=== PATIENT | female | born 1945 | race Caucasian/White ===

== ENCOUNTER 2018-10-28 14:49 | Outpatient (REF) | payer MEDICARE, MEDICAID, SELFPAY ==
[2018-10-28 19:21] LABS: Anion Gap 11.4 mmol/L (3-11); BUN 15 mg/dL (7-18); CO2 26.6 mmol/L (21.0-32.0); CREATININE 0.78 mg/dL (0.55-1.02); Calcium 9.4 mg/dL (8.5-10.1); Chloride 105 mmol/L (98-107); Cholesterol 266 mg/dL (50-200); Glucose 149 mg/dL (70-100); HDL Cholesterol 38 mg/dL (40-60); LDL CHOLESTEROL 146 mg/dL (<100); Potassium 4.3 mmol/L (3.5-5.1); Sodium 143 mmol/L (136-145); Triglyceride 377 mg/dL (30-150)
[2018-10-28 19:26] LABS: HCT 40.6 % (36.0-46.0); HGB 13.1 g/dL (12.0-15.5); Mean Corp. HGB Concentration 32.3 g/dL (32.0-36.0); Mean Corpuscular Hemoglobin 29.4 pg (27.0-33.0); Mean Corpuscular Volume 91.2 fL (80-95); Mean Platelet Volume 11.1 fL (8.0-11.0); Platelet Count 229 x1000/uL (130-400); RBC 4.45 m/cumm (4.00-5.20); RBC Distribution Width 14.8 % (11.7-14.6); White Blood Cell Count 7.59 k/cumm (4.4-10.8)
== END 2018-10-28 15:09 ==
LOC: LBN 14:49
PROVIDERS: PCP Internal Medicine; Visit Provider Internal Medicine
DX: D50.0 Iron deficiency anemia secondary to blood loss (chronic) (principal); I10 Essential (primary) hypertension; E11.9 Type 2 diabetes mellitus without complications; K92.2 Gastrointestinal hemorrhage, unspecified
CPT/HCPCS: 80048; 80061; 83721; 85027

== ENCOUNTER → 2022-09-04 01:03 | Outpatient (CLI) | payer MEDICARE, MEDICAID, SELFPAY ==
--- NOTE | 2022-09-04 07:45 | DI.MAMMO_ITS ---
Exam(s) US BREAST RT COMPLETE MAMMO DIAGNOSTIC BI EXAM: MAMMO DIAGNOSTIC BI and U/S breast RT complete CLINICAL HISTORY: NT lump right 9:00, N63.0. TECHNIQUE: Craniocaudal and mediolateral oblique Full Field Digital Mammography views with Computer Aided Diagnosis followed by Tomosynthesis and right breast ultrasound. COMPARISON: No priors for comparison. FINDINGS: Mammography/Tomosynthesis: Masses/Architectural Distortion: There are multiple well-circumscribed nodules in the right breast. This includes a nodule in the upper outer quadrant of the right breast which appears to correspond to the palpable concern. Microcalcifictions: No suspicious pleomorphic-type are seen. Numerous bilateral calcifications are se en in both breasts. Skin Thickening/Nipple Retraction: None. Complete right breast US: Echotexture: Normal appearance of the glandular tissue. Shadowing: No suspicious foci. Cyst: None. Solid lesions: Multiple well-circumscribed hypoechoic lesions are seen throughout the right breast. The largest is at the 9 o'clock position and measures 2.0 x 1 x 1.0 cm. This does contain a calcific ation internally. This appears to correspond to the nodule in the upper outer quadrant of the right breast. There is a nodule at the 11 o'clock position 2 cm from the nipple measuring 0.8 x 0.4 x 0.5 cm. The next largest nodule is seen at the 11 o'clock position 3 cm from the nipple and measures 0.7 x 0.3 x 0.6 cm. This contain calcifications. Ductal dilation: None. IMPRESSION: 1. No definite evidence for malignancy at this time. 2. A six-month follow-up right mammogram and ultrasound are requested for re-evaluation. 3. The findings were discussed with the patient on the date of the examination. BI-RADS Category 3 - 6 month - Probably Benign Finding: Recommend follow-up imaging in 6 months Breast Density - Category C - Heterogeneously dense Breast density Category C or D implies that the patient has dense breast tissue. Dense breast tissue can make it harder to find cancer on a mammogram. Dense breast tissue is also associated with an incr eased risk of breast cancer. This information about the result of the mammogram report was provided to the patient to raise their awareness. Use this report when you speak with the patient about their risks for breast cancer, which includes their family history. At that time, you may recommend additional screening tests (Ultrasoun d or MRI) as these tests may add significant information. A negative radiographic report should not delay biopsy if a dominant or clinically suspicious mass is present. Up to ten percent of cancers are not identified on mammography. A negative report may reinforce clinical impression. Adenosis and dense breasts may obscure an underlying neoplasm. False positive reports average 6 to 10%. Patient will receive a letter notifying them of these results.
== END ==
PROVIDERS: PCP Internal Medicine; Visit Provider Nurse Practitioner
DX: R92.8 Other abnormal and inconclusive findings on diagnostic imaging of breast
CPT/HCPCS: 76642; 77062; 77066; G0279

== ENCOUNTER 2023-06-05 18:51 | Emergency (ER) | payer MEDICARE, MEDICAID, SELFPAY ==
--- NOTE | 2023-06-05 19:00 | RT.EKG_ITS ---
APPROVED REPORT Exam: Resting ECG Reason for Exam: back pain/tachycardia Patient Location: E HR:97 bpm ECG Measurements Heart Rate 97 AXIS AR 198 P -3 QRSd 97 QRS 39 QT 346 T 3 QTc 439 Conclusion Sinus rhythm...normal P axis, V-rate 60- 99 sinus rhtyhm, normal axs, normal intervals, non ischemic
[2023-06-05 19:04] VITALS: BP 126/56; PULSE 102; RESP 18; TEMP 37.3; O2SAT 99
[2023-06-05] MEDS: Cyclobenzaprine 10 MG TAB PO (19:50)
[2023-06-05] MEDS: Ketorolac 10 MG TAB PO (19:50)
[2023-06-05] MEDS: Lidocaine 5% Patch 1 PATCH TP (19:51)
--- NOTE | 2023-06-05 19:53 | ED.GENADUL_ITS ---
Discharge Plan Disposition Patient Disposition: Home Condition: Improving Discharge Details Clinical Impression: Back pain Primary Care Provider: Leonila Rich ED Provider: John Paulino Home Meds and New Rx's Prescriptions: New cyclobenzaprine 5 mg tablet 5 mg PO QHS PRN (Reason: muscle spasm) Qty: 10 0RF lidocaine [Lidoderm] 5 % adhesive patch,medicated 1 patch topical DAILY PRNQty: 15 0RF Rx Instructions: leave on most painful area for up to 12 hrs No Action ibuprofen 200 mg tablet 400 mg PO BID PRN Discharge Instructions Instructions: Back Pain (ED) Additional Instructions: Please follow with your primary care physician. Please return to the emergency department for any worsening symptoms Medical Decision Making 77-year-old female history of spinal stenosis presents with acute on chronic atraumatic back pain. Afebrile nontoxic neurologically intact. No bowel or bladder symptoms. No midline spinal tenderness. Patient is largely sedentary does have evidence of early pressure sores on back. Feeling better after Lidoderm cyclobenzaprine and Toradol. Patient like to go home. Home care instructions return precautions given. HPI General Date/Time Provider Initiated Documentation: 06/05/23 19:34 . HPI Narrative: 77-year-old female history of spinal stenosis presents with acute on chronic lower back pain over the past couple of days, no acute injuries. No fevers no chills no systemic signs of illness. Ambulatory without assistance. No bowel or bladder issues. Related Data Home Medications Medication Instructions Recorded Confirmed ibuprofen 200 mg tablet 400 mg PO BID PRN 07/19/21 06/05/23 cyclobenzaprine 5 mg tablet 5 mg PO QHS PRN muscle spasm #10 06/05/23 tabs lidocaine 5 % topical patch 1 patch topical DAILY PRN #15 ea 06/05/23 (Lidoderm) Previous Rx's Medication Instructions Recorded cyclobenzaprine 5 mg tablet 5 mg PO QHS PRN muscle spasm #10 06/05/23 tabs lidocaine 5 % topical patch 1 patch topical DAILY PRN #15 ea 06/05/23 (Lidoderm) Allergies Allergy/AdvReac Type Severity Reaction Status Date / Time No Known Allergies Allergy Verified 08/27/22 12:53 General Stated Complaint: Nk/Back Pain GARY: 3 Review of Systems Narrative: Review of Systems Constitutional: negative Eyes: negative ENT: negative Cardiovascular: negative Respiratory: negative Gastrointestinal: negative : negative Musculoskeletal: Back pain Skin: negative Neurologic: negative Psych: negative PFSH All Active Problems (Updated 06/05/23 @ 21:17 by John Paulino MD) Back pain (Acute) Depression (Acute 05/31/15) Spinal stenosis, unspecified region other than cervical (Acute 10/26/11) Smoker unmotivated to quit (Acute 05/31/15) Pure hypercholesterolemia (Acute 02/27/17) Iron deficiency anemia due to chronic blood loss (Acute 03/16/14) due to NSAID, ASA, ? lesion Insomnia (Acute 02/27/17) Essential hypertension (Acute 01/26/13) Diabetes mellitus (Acute 01/26/13) Radicular pain of right lower extremity (Acute) Chronic low back pain with right-sided sciatica (Acute) Medical History (Updated 06/05/23 @ 21:17 by John Paulino MD) Chronic GI bleeding (07/18/15) Continuous opioid dependence (10/21/13) Surgical History (Updated 07/30/18 @ 14:36 by Plink CA) Abdominal hysterectomy Cholecystectomy Family History Father Myocardial infarction Grandfather Essential hypertension Social History (Updated 07/19/21 @ 13:39 by Eufemia Reeves LPN) Smoking/Tobacco Use Status: Current every day Tobacco Type: cigarettes Quit status: not considering quitting Smoking risk assessment performed?: Yes Alcohol Intake: former Details: alcholic quit 1977 Drug use: Never Substance use type: does not use Adopted: No Caregiver/Support person: Yes Foster care: No Household members: other Details: self and son Housing: apartment Number of Children: 1 number of grandchildren: 0 Communication Needs: None 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, 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, 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 Pets and animals: Yes Pets and animals: cat(s) What is your relationship status?: How often do you talk on the phone with friends or family?: three or more times per week Panel score (0-1 are the most socially isolated patients): 1 What type of physical activity do you participate in: none Drive intox or ride w/intox 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 Water heater temp set <120 deg: Yes Working smoke detector in home: Yes Fire extinguisher in home: Yes Carbon monox detector in home: Yes Do you feel safe at home: Yes Do you feel safe in your relationship?: Yes Exam Narrative Exam Narrative: Physical Examination General: alert, awake, cooperative, resting comfortably, no acute distress HEENT: normocephalic, atraumatic; PERRL, EOM intact, conjunctiva normal; no nasal discharge; moist mucous membranes, oral and pharyngeal mucosa normal, tolerating secretions Neck: supple, trachea midline; full ROM Chest: normal to inspection Respiratory: normal respiratory effort, speaking in full sentences, clear to auscultation, no wheezing, rales or rhonchi Cardiac: regular rate, regular rhythm, S1S2 intact, no murmurs rubs or gallops GI: abdomen soft, non-tender, non-distended; no palpable mass or hepatosplenomegaly : Back: No midline spinal tenderness, patient does have paraspinal lumbar discomfort no evidence of early pressure sores Skin: no lesions, rashes or trauma appreciated Neuro: AAOx3, normal speech, moving all extremities Extremities: Psych: Appropriate mood and affect Course Vital Signs Vital signs: Vital Signs Temperature 37.3 C 06/05/23 19:04 Pulse 102 H 06/05/23 19:04 Respiratory Rate 18 06/05/23 19:04 Blood Pressure 126/56 L 06/05/23 19:04 Pulse Oximetry 99 06/05/23 19:04 Temperature 37.3 C 06/05/23 19:04 Temperature Source Temporal Artery Scan 06/05/23 19:04 Pulse 102 H 06/05/23 19:04 Respiratory Rate 18 06/05/23 19:04 Respiratory Effort Normal 06/05/23 19:27 Blood Pressure 126/56 L 06/05/23 19:04 Blood Pressure Position Sitting 06/05/23 19:04 Pulse Oximetry 99 06/05/23 19:04 Oxygen Delivery Method Room Air 06/05/23 19:04 Oxygen Flow Rate 0 06/05/23 19:04 Pain Level 10 06/05/23 19:04
[2023-06-05 21:31] VITALS: BP 135/68; PULSE 92; RESP 20; O2SAT 96
== END 2023-06-05 21:28 | disposition home or self-care (01) ==
PROVIDERS: Emergency Provider Emergency Medicine; PCP Nurse Practitioner
DX: M54.50 Low back pain, unspecified (principal); E78.00 Pure hypercholesterolemia, unspecified; M48.02 Spinal stenosis, cervical region; I10 Essential (primary) hypertension; E11.9 Type 2 diabetes mellitus without complications; F17.210 Nicotine dependence, cigarettes, uncomplicated
CPT/HCPCS: 93005; 99283; 93010

== ENCOUNTER 2023-07-13 19:38 | Emergency (ER) | payer MEDICARE, MEDICAID, SELFPAY ==
[2023-07-13 20:00] VITALS: BP 118/43; PULSE 80; RESP 16; TEMP 36.7; O2SAT 99
--- NOTE | 2023-07-13 20:58 | ED.GENADUL_ITS ---
Discharge Plan Disposition Patient Disposition: Home Discharge Details Clinical Impression: Ankle fracture, right Primary Care Provider: Leonila Rich ED Provider: Ashley Molina Home Meds and New Rx's Prescriptions: New oxycodone 5 mg tablet 5 mg PO Q4H PRN (Reason: pain) Qty: 20 0RF Continued celecoxib [Celebrex] 200 mg capsule 200 mg PO DAILY Qty: 90 1RF (DME) manual wheelchair See Rx Instructions .Route .MEDSUPPLY Qty: 1 0RF Rx Instructions: As directed Discharge Instructions Instructions: Ankle Fracture (ED) Additional Instructions: Ice 20 minutes on and 20 minutes off for the next 24 to 48 hours. Elevate your ankle above the level of your heart as discussed. You may take your Celebrex as prescribed. You may also take your [id number] pain medicine. Oxycodone 1 tablet every 4-6 hours as needed for pain. Wear the ortho boot until seen by ortho. Orthopedics should call you Saturday for follow-up appointment for next week. Medical Decision Making Patient and her family were updated on her x-ray results. She has a distal fibula fracture and will see orthopedics in follow-up. We will give her a small amount of oxycodone to take with her Celebrex and [id number] pain medicine. We will be putting her in an orthopedic shoe. She does get around in her wheelchair. Medical Records Medical records reviewed: Yes I reviewed the patient's medical records. Imaging Data Radiologic Study: Imaging: X-Ray (Distal fibula fracture, minimally displaced, evident. There may be loss of the mortise between her distal fibula and talus. Foot and tib-fib are negative for anything else.) HPI General Date/Time Provider Initiated Documentation: 07/13/23 20:44 . HPI Narrative: This 78-year-old female patient presents with a chief complaint of right lower extremity pain after falling twice this week. The patient does not walk and has been wheelchair-bound for about 10 years. She does transfer. She was try to transfer on Saturday and slipped and fell between the toilet and wall. She twisted her foot and thought she heard a snap. She has diffuse ecchymosis, swelling, and tenderness to palpation in her right foot and ankle. The patient states that she also hit her head at that time. There was no LOC and she is on no blood thinning medicines. She has no neck pain. There is no headache, dizziness, or lightheadedness. She has no nausea or vomiting. She states she fell again on and hurt her hip, right foot, ankle, and lower leg at the same time. Has been taking [id number] pain medicine but has not been icing this at all. She denies any other injury. Her foot and ankle are throbbing. There is no numbness. Related Data Home Medications Medication Instructions Recorded Confirmed celecoxib 200 mg capsule (Celebrex) 200 mg PO DAILY #90 caps 06/18/23 07/13/23 manual wheelchair #1 ea 07/09/23 07/09/23 oxycodone 5 mg tablet 5 mg PO Q4H PRN pain #20 tabs 07/13/23 Previous Rx's Medication Instructions Recorded celecoxib 200 mg capsule (Celebrex) 200 mg PO DAILY #90 caps 06/18/23 manual wheelchair #1 ea 07/09/23 oxycodone 5 mg tablet 5 mg PO Q4H PRN pain #20 tabs 07/13/23 Allergies Allergy/AdvReac Type Severity Reaction Status Date / Time No Known Allergies Allergy Verified 07/13/23 20:05 General Stated Complaint: Trauma GARY: 3 Review of Systems Constitutional Constitutional: Denies chills, Denies fever(s), Denies headache(s) and Denies weakness Eyes Eyes: Denies diplopia and Reports other (no redness) ENT Ears, Nose, Mouth, and Throat: Denies otalgia, Denies headache(s), Denies nasal congestion, Denies nasal discharge, Denies neck pain and Denies sore throat Cardiovascular Cardiovascular: Denies chest pain, Denies palpitations and Denies dyspnea Respiratory Respiratory: Denies cough and Denies dyspnea Gastrointestinal Gastrointestinal: Denies abdominal pain, Denies diarrhea, Denies nausea and Denies vomiting Genitourinary Genitourinary: Denies dysuria Musculoskeletal Musculoskeletal: Denies myalgias, Denies muscle weakness, Denies neck pain, Denies numbness and Reports other (Has right foot and ankle pain, edema, ecchymosis) Integumentary/Breasts Skin/Breast: Denies change in pigmentation, Denies rash and Reports other (Bruising and swelling as noted under musculoskeletal ROS) Neurologic Neurologic: Denies headache(s), Denies numbness and Denies weakness Endocrine Endocrine: Denies palpitations PFSH All Active Problems (Updated 07/13/23 @ 22:58 by Ashley Molina MD) Ankle fracture, right (Acute) Depression (Acute 05/31/15) Spinal stenosis, unspecified region other than cervical (Acute 10/26/11) Smoker unmotivated to quit (Acute 05/31/15) Pure hypercholesterolemia (Acute 02/27/17) Iron deficiency anemia due to chronic blood loss (Acute 03/16/14) due to NSAID, ASA, ? lesion Insomnia (Acute 02/27/17) Essential hypertension (Acute 01/26/13) Diabetes mellitus (Acute 01/26/13) Radicular pain of right lower extremity (Acute) Chronic low back pain with right-sided sciatica (Acute) Medical History Chronic GI bleeding (07/18/15) Continuous opioid dependence (10/21/13) Surgical History Abdominal hysterectomy Cholecystectomy Family History Father Myocardial infarction Grandfather Essential hypertension Social History Smoking/Tobacco Use Status: Current every day Tobacco Type: cigarettes Quit status: not considering quitting Smoking risk assessment performed?: Yes Alcohol Intake: former Details: alcholic quit 1977 Drug use: Never Substance use type: does not use Adopted: No Caregiver/Support person: Yes Foster care: No Household members: other Details: self and son Housing: apartment Number of Children: 1 number of grandchildren: 0 Communication Needs: None 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, 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, 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 Pets and animals: Yes Pets and animals: cat(s) What is your relationship status?: How often do you talk on the phone with friends or family?: three or more times per week Panel score (0-1 are the most socially isolated patients): 1 What type of physical activity do you participate in: none Drive intox or ride w/intox 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: No Water heater temp set <120 deg: Yes Working smoke detector in home: Yes Fire extinguisher in home: Yes Carbon monox detector in home: Yes Do you feel safe at home: Yes Do you feel safe in your relationship?: Yes Exam Const General: no acute distress, well developed, well groomed and not in acute distress Nutritional Appearance: well nourished Orientation: alert and oriented x3 HENMT Head: normocephalic and signs of trauma (Minor bruise right zoroastrian, no step-offs or crepitus) Ears: external ears normal General nose exam: external nose normal Face and sinus: normal facial exam Mouth: oropharynx normal and moist mucous membranes Throat: posterior oropharynx normal Eyes Conjunctivae: conjunctivae normal Neck Neck: full ROM, supple and other (No cervical spine tenderness to palpation) Chest Chest: normal inspection of the chest and normal palpation of entire chest wall Resp Effort & Inspection: normal respiratory effort Auscultation: clear to auscultation bilaterally Cardio Rate: regular rate Rhythm: regular rhythm Heart Sounds: no murmurs and no rubs GI Inspection: normal to inspection Palpation: soft, nontender and other (non distended) Auscultation: normal bowel sounds Back/Spine/Pelvis Back: no CVA tenderness Cervical Spine: No cervical spinal tenderness Thoracic/Lumbar Spine: No thoracic spinal tenderness and No lumbar spinal tenderness Pelvis: no pain with anterior-posterior compression and no pain with lateral compression Skin General skin exam: no rashes or lesions noted and other (pink, warm, dry) Neuro General: patient alert, patient awake and patient oriented x3 Cranial Nerves: CN's II-XI intact bilaterally Cognition: normal cognition Speech: speech normal Gait: other (Wheelchair-bound, gait not assessed) Motor: muscle tone normal throughout, strength 5/5 throughout and other (W[place]ON) Sensory Exam: no sensory deficits noted Extrem General: normal to inspection, full ROM and pedal edema present Right upper extremity: normal to inspection and full ROM Left upper extremity: normal to inspection and full ROM Right lower extremity: knee (Has lateral proximal fibular tenderness to palpation, no deformity) and ankle (TTP over B malleoli, also entire foot; decent swelling and ecchymosis) Details: edema, ecchymosis and other (Sensation intact distally) Left lower extremity: normal to inspection and full ROM Psych Mental Status: mental status grossly normal Speech and Movement: speech and movement normal Affect: normal affect Course Vital Signs Vital signs: Vital Signs Temperature 36.7 C 07/13/23 20:00 Pulse 80 07/13/23 20:00 Respiratory Rate 16 07/13/23 20:00 Blood Pressure 118/43 L 07/13/23 20:00 Pulse Oximetry 99 07/13/23 20:00 Temperature 36.7 C 07/13/23 20:00 Temperature Source Temporal Artery Scan 07/13/23 20:00 Pulse 80 07/13/23 20:00 Respiratory Rate 16 07/13/23 20:00 Respiratory Effort Normal 07/13/23 20:00 Blood Pressure 118/43 L 07/13/23 20:00 Blood Pressure Position Sitting 07/13/23 20:00 Pulse Oximetry 99 07/13/23 20:00 Oxygen Delivery Method Room Air 07/13/23 20:00 Oxygen Flow Rate 0 07/13/23 20:00 Pain Level 10 07/13/23 20:00
[2023-07-13] MEDS: Acetaminophen 325 MG TAB 650 MG PO (21:19)
--- NOTE | 2023-07-13 22:34 | DI.RAD_ITS ---
Exam(s) XR ANKLE RT COMPLETE EXAM: XR ANKLE RT COMPLETE CLINICAL HISTORY: pain, malleoli pain, post fall. TECHNIQUE: 2D digital imaging was performed. COMPARISON: No exams were available for comparison FINDINGS: 3 views There is a minimally displaced transverse fracture of the lateral malleolus. There is overlying soft tissue swelling. Talar dome unremarkable. No other fractures. No widening of the ankle mortise. Age-related osteopenia evident. IMPRESSION: Minimally displaced transverse fracture of the lateral malleolus DATA REPOSITORY: RADIATION DOSE DELIVERED:
--- NOTE | 2023-07-13 22:34 | DI.RAD_ITS ---
Exam(s) XR TIB/FIB RT EXAM: XR TIB/FIB RT CLINICAL HISTORY: prox fib pain post fall. TECHNIQUE: 2D digital imaging was performed. COMPARISON: No exams were available for comparison FINDINGS: Two views. Transverse fracture of the lateral malleolus noted at the ankle level. No other fractures in the tib ia and fibula. Bone density is age-appropriate. No osseous lesions. No radiopaque foreign body IMPRESSION: Transverse fracture of the lateral malleolus with minimal displacement DATA REPOSITORY: RADIATION DOSE DELIVERED:
--- NOTE | 2023-07-13 22:34 | DI.RAD_ITS ---
Exam(s) XR FOOT RT COMPLETE EXAM: XR FOOT RT COMPLETE CLINICAL HISTORY: fall, diffuse pain, edema, ecchymosis. TECHNIQUE: 2D digital imaging was performed. COMPARISON: No exams were available for comparison FINDINGS: 3 views There is a healed midshaft fracture of the 2nd metatarsal. No acute fractures in the foot nor diastasis of the Lisfranc joint. Mild degenerative changes. Soft tissue swelling noted over the dorsal aspect of the foot. Small inferior calcaneal spur noted IMPRESSION: No acute fractures in the foot. Healed fracture site in the midshaft level of the 2nd metatarsal. DATA REPOSITORY: RADIATION DOSE DELIVERED:
--- NOTE | 2023-07-13 22:47 | DI.VRAD_ITS ---
PROCEDURE INFORMATION: Exam: XR Right Ankle Exam date and time: 07/13/2023 10:17 PM Age: 78 years old Clinical indication: Injury or trauma; Blunt trauma; Ankle; Right; Patient HX: Pain, malleoli pain, post fall TECHNIQUE: Imaging protocol: Radiologic exam of the right ankle. Views: 3 or more views. COMPARISON: No relevant prior studies available. FINDINGS: Bones/joints: There is a minimally displaced transverse fracture of the lateral malleolus. No other findings of acute fracture. Ankle mortise is intact. No arthritic change. Bones are diffusely osteopenic. Soft tissues: Moderate soft tissue swelling of the ankle. IMPRESSION: Minimally displaced lateral malleolus fracture Dictated and Authenticated by: Patrick Fraser MD. Ordering:JENNIFER Ramirez MD
--- NOTE | 2023-07-13 22:47 | DI.VRAD_ITS ---
PROCEDURE INFORMATION: Exam: XR Right Foot Exam date and time: 07/13/2023 10:19 PM Age: 78 years old Clinical indication: Injury or trauma; Other: Fall, diffuse pain, edema, ecchmosis TECHNIQUE: Imaging protocol: Radiologic exam of the right foot. Views: 3 or more views. COMPARISON: CR XR ANKLE RT COMPLETE 07/13/2023 10:17 PM FINDINGS: Bones/joints: Bones are diffusely osteopenic. No acute fracture evident in the foot. Mild plantar calcaneal spurring. Soft tissues: Moderate soft tissue swelling of the foot. IMPRESSION: No acute fracture in the foot Dictated and Authenticated by: Patrick Fraser MD. Ordering:JENNIFER Ramirez MD
--- NOTE | 2023-07-13 22:48 | DI.VRAD_ITS ---
PROCEDURE INFORMATION: Exam: XR Right Tibia and Fibula Exam date and time: 07/13/2023 10:22 PM Age: 78 years old Clinical indication: Injury or trauma; Blunt trauma; Lower leg; Right; Injury details: Prox fib pain post fall TECHNIQUE: Imaging protocol: Radiologic exam of the right tibia and fibula. Views: 2 views. COMPARISON: CR XR FOOT RT COMPLETE 07/13/2023 10:19 PM FINDINGS: Bones/joints: Bones are diffusely osteopenic. Slight cortical irregularity of the lateral malleolus of the fibula concerning for acute fracture. No other findings suspicious for fracture. Mild degenerative changes of the knee noted Soft tissues: Normal. IMPRESSION: Suggestion of minimally displaced lateral malleolus fracture Dictated and Authenticated by: Patrick Fraser MD. Ordering:JENNIFER Ramirez MD
[2023-07-13] MEDS: oxyCODONE 5 MG TAB PO (23:00)
[2023-07-13 23:35] VITALS: BP 122/67; PULSE 75; RESP 16; TEMP 36.7; O2SAT 99
--- NOTE | 2023-07-18 12:23 | NUR.NOTE ---
Accessed pt chart to print the provider note to fax to [facility] for billing purposes.Nursing Note:
== END 2023-07-13 23:35 | disposition home or self-care (01) ==
PROVIDERS: Emergency Provider Emergency Medicine; PCP Nurse Practitioner
DX: S82.891A Other fracture of right lower leg, initial encounter for closed fracture (principal); W05.0XXA Fall from non-moving wheelchair, initial encounter
CPT/HCPCS: 99283; 73590; 73610; 73630; 99284

== ENCOUNTER → 2023-07-29 14:49 | Outpatient (BNVA) | payer MEDICARE, MEDICAID, SELFPAY | PROVIDERS: PCP Nurse Practitioner; Referring Provider Nurse Practitioner | DX: S82.831D Other fracture of upper and lower end of right fibula, subsequent encounter for closed fracture with routine healing (principal); X58.XXXD Exposure to other specified factors, subsequent encounter | CPT/HCPCS: 99213 ==

== ENCOUNTER 2023-09-03 15:07 | Emergency (ER) | payer MEDICARE, MEDICAID, SELFPAY ==
[2023-09-03 15:15] VITALS: BP 139/60; PULSE 110; RESP 18; TEMP 36; O2SAT 100
--- NOTE | 2023-09-03 15:45 | ED.GENADUL_ITS ---
Discharge Plan Disposition Patient Disposition: Home Condition: Stable Discharge Details Clinical Impression: Cat bite of right hand with infection Primary Care Provider: Leonila Rich ED Provider: Miko Soto Home Meds and New Rx's Prescriptions: New amoxicillin-pot clavulanate 875-125 mg tablet 1 tab PO BID Qty: 19 0RF Continued celecoxib [Celebrex] 200 mg capsule 200 mg PO DAILY Qty: 90 1RF (DME) manual wheelchair See Rx Instructions .Route .MEDSUPPLY Qty: 1 0RF Rx Instructions: As directed Discharge Instructions Instructions: Animal Bite (ED), Cellulitis (ED) Additional Instructions: Please take full course of antibiotic as prescribed. Please drink plenty of fluids to stay hydrated. Please contact your primary care physician to arrange follow-up. Return to the ER immediately for any worsening or new concerning symptoms. Referrals: Leonila Rich, ARCHITECTURAL REPRESENTATIVE [Primary Care Provider] - Medical Decision Making 78-year-old female presents 2 days after cat bite versus scratch to her right dorsal hand with swelling, pain and erythema. No concern for tendon involvement. Patient mildly tachycardic on arrival. She is afebrile. Family note patient often has elevated heart rate related chronic pain. Plan for treatment of cellulitis with Augmentin. I will update tetanus immunization. Additional antibiotic dose provided here in the emergency department. Usual customary discharge instructions were reviewed with the patient and her family. They understand the importance of follow-up and need to return for any worsening or new concerning symptoms. HPI General Mode of arrival: ambulatory . Date/Time Provider Initiated Documentation: 09/03/23 15:23 . Limitations to Documentation: no limitations . Information obtained by: patient and family . HPI Narrative: 78-year-old female presents with chief complaint of cat bite. Patient apparently was bit or scratched by a cat 2 days ago on her right hand. She has had progressive worsening of swelling of the hand as well as associated redness and pain. No associated fever. Related Data Home Medications Medication Instructions Recorded Confirmed celecoxib 200 mg capsule (Celebrex) 200 mg PO DAILY #90 caps 06/18/23 09/03/23 manual wheelchair #1 ea 07/09/23 09/03/23 amoxicillin 875 mg-potassium 1 tab PO BID #19 tabs 09/03/23 clavulanate 125 mg tablet Previous Rx's Medication Instructions Recorded celecoxib 200 mg capsule (Celebrex) 200 mg PO DAILY #90 caps 06/18/23 manual wheelchair #1 ea 07/09/23 amoxicillin 875 mg-potassium 1 tab PO BID #19 tabs 09/03/23 clavulanate 125 mg tablet Allergies Allergy/AdvReac Type Severity Reaction Status Date / Time No Known Allergies Allergy Verified 09/03/23 15:32 General Stated Complaint: AnimalBite GARY: 3 Review of Systems Constitutional Constitutional: Denies fever(s) Integumentary/Breasts Skin/Breast: Reports as per HPI PFSH All Active Problems Cat bite of right hand with infection (Acute) Fracture of fibula, distal, right, closed (Acute ~07/09/23) Depression (Acute 05/31/15) Spinal stenosis, unspecified region other than cervical (Acute 10/26/11) Smoker unmotivated to quit (Acute 05/31/15) Pure hypercholesterolemia (Acute 02/27/17) Iron deficiency anemia due to chronic blood loss (Acute 03/16/14) due to NSAID, ASA, ? lesion Insomnia (Acute 02/27/17) Essential hypertension (Acute 01/26/13) Diabetes mellitus (Acute 01/26/13) Radicular pain of right lower extremity (Acute) Chronic low back pain with right-sided sciatica (Acute) Medical History Continuous opioid dependence (10/21/13) Chronic GI bleeding (07/18/15) Surgical History Abdominal hysterectomy Cholecystectomy Family History Father Myocardial infarction Grandfather Essential hypertension Social History Smoking/Tobacco Use Status: Current every day Tobacco Type: cigarettes Quit status: not considering quitting Smoking risk assessment performed?: Yes Alcohol Intake: former Details: alcholic quit 1977 Drug use: Never Substance use type: does not use Adopted: No Caregiver/Support person: Yes Foster care: No Household members: other Details: self and son Housing: apartment Number of Children: 1 number of grandchildren: 0 Communication Needs: None 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, 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, 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 Pets and animals: Yes Pets and animals: cat(s) What is your relationship status?: How often do you talk on the phone with friends or family?: three or more times per week Panel score (0-1 are the most socially isolated patients): 1 What type of physical activity do you participate in: none Drive intox or ride w/intox over the road driver: No Water heater temp set <120 deg: Yes Working smoke detector in home: Yes Fire extinguisher in home: Yes Carbon monox detector in home: Yes Do you feel safe at home: Yes Do you feel safe in your relationship?: Yes Exam Skin Rashes: rashes noted (dorsal right hand/wrist) Extrem Right upper extremity: wrist Details: normal ROM and hand (right hand swollen and tender with erythema dorsally) Details: tendon exam normal and normal ROM of fingers Course Vital Signs Vital signs: Vital Signs Temperature 36 C L 09/03/23 15:15 Pulse 110 H 09/03/23 15:15 Respiratory Rate 18 09/03/23 15:15 Blood Pressure 139/60 09/03/23 15:15 Pulse Oximetry 100 09/03/23 15:15 Temperature 36 C L 09/03/23 15:15 Temperature Source Temporal Artery Scan 09/03/23 15:15 Pulse 110 H 09/03/23 15:15 Respiratory Rate 18 09/03/23 15:15 Respiratory Effort Normal, Non-Labored 09/03/23 15:19 Blood Pressure 139/60 09/03/23 15:15 Blood Pressure Position Sitting 09/03/23 15:15 Pulse Oximetry 100 09/03/23 15:15 Oxygen Delivery Method Room Air 09/03/23 15:15 Oxygen Flow Rate 0 09/03/23 15:15 Pain Level 10 09/03/23 15:27
[2023-09-03] MEDS: Amoxicillin 875/Clav. 125 TAB PO (15:50)
[2023-09-03 16:01] VITALS: PULSE 107; O2SAT 99
== END 2023-09-03 16:33 | disposition home or self-care (01) ==
PROVIDERS: Emergency Provider Student in an Organized Health Care Education/Training Program; PCP Nurse Practitioner
DX: M79.89 Other specified soft tissue disorders (principal); S61.451A Open bite of right hand, initial encounter; W55.01XA Bitten by cat, initial encounter; I10 Essential (primary) hypertension; E11.9 Type 2 diabetes mellitus without complications; Z79.899 Other long term (current) drug therapy
CPT/HCPCS: 82962; 90471; 99284; 99283

== ENCOUNTER 2023-11-02 19:07 | Inpatient (IN) | payer MEDICARE, MEDICAID, SELFPAY ==
[2023-11-02] VITALS (108 sets, daily range): BP systolic 96–219; BP diastolic 30–185; PULSE 91–147; RESP 5–24; TEMP 36.6–36.7; O2SAT 94–100
--- NOTE | 2023-11-02 19:00 | RT.EKG_ITS ---
APPROVED REPORT Exam: Resting ECG Reason for Exam: sob Patient Location: E HR:98 bpm ECG Measurements Heart Rate 98 AXIS MS 212 P 77 QRSd 89 QRS 57 QT 348 T 63 QTc 445 Conclusion Sinus rhythm...normal P axis, V-rate 60- 99 Borderline prolonged MS interval...MS >207, V-rate 91-120 Low voltage, extremity leads...all extremity leads <0.5mV Borderline ST depression, anterolateral leads...ST <-0.07mV, I aVL V2-V6 1st degree AVB, Normal axis Previous ST elevation in III has improved from previous. NO STEMI
[2023-11-02] MEDS: Albuterol/Ipratropium 3 ML UPD VIAL UPD (19:14)
--- NOTE | 2023-11-02 19:15 | DI.RAD_ITS ---
Exam(s) XR PORTABLE CHEST AP EXAM: XR PORTABLE CHEST AP CLINICAL HISTORY: short of breath TECHNIQUE: 2D digital imaging was performed. COMPARISON: CR CHEST 2 VIEWS PA,LAT from 06/24/[address] THORAX ABD/PEL CTA from 11/02/2023 FINDINGS: LUNGS: Increased interstitial markings and prominent pulmonary vasculature compared to prior exam con sistent with CHF. No focal infiltrate visible. No pleural abnormality seen. HEART: Mildly enlarged. AORTA: Normal diameter. BONES: Unremarkable for age. Soft tissues: Unremarkable. IMPRESSION: Findings consistent with moderate CHF. DATA REPOSITORY: RADIATION DOSE DELIVERED:
[2023-11-02 19:39] LABS: BE (Venous) -7 mmol/L (-2-3); HCO3 (Venous) 20 mmol/L (23-28); O2 Sat (Venous) 68 %; TCO2 (Venous) 19 mmol/L (24-29); pCO2 (Venous) 37 mmHg (41-51); pH (Venous) 7.33 (7.31-7.41); pO2 (Venous) 42 mmHg
[2023-11-02 19:41] LABS: Lactate 1.5 mmol/L (0.6-1.4)
[2023-11-02 19:42] LABS: Abs Immature Grans 0.03 10^3/uL (0.0-0.06); Absolute Basophil Count 0.05 10^3/uL (0.0-0.2); Absolute Eosinophil Count 0.02 10^3/uL (0.0-0.7); Absolute Lymphocyte Count 0.46 10^3/uL (1.2-3.4); Absolute Monocyte Count 0.27 10^3/uL (0.1-0.8); Absolute Neutrophil Count 4.85 10^3/uL (1.2-6.7); Basophils % 0.9; Eosinophils % 0.4; HCT 23.1 % (36.0-46.0); Immature Grans % 0.5; Lymphocytes % 8.1; MCH 19.4 pg (27.0-33.0); MCHC 26.8 % (32.0-36.0); MCV 72 fL (80-95); MPV 10.6 fL (8.0-11.0); Monocytes % 4.8; Neutrophils % 85.3; Platelet Count 264 10^3/uL (130-400); WBC 5.68 10^3/uL (4.4-10.8)
[2023-11-02 19:45] LABS: HGB 6.2 g/dL (11.2-15.7)
[2023-11-02 19:54] LABS: COVID-19 PCR Negative (Negative); Influenza A PCR Negative (Negative); Influenza B PCR Negative (Negative); RSV PCR Negative (Negative)
[2023-11-02 19:55] LABS: Anisocytosis 2+; Hypochromasia 2+
[2023-11-02 19:56] LABS: Microcytosis 3+
[2023-11-02 20:08] LABS: ALT 13 U/L (14-59); AST 30 U/L (15-37); Albumin 3.2 g/dL (3.4-5.0); Alkaline Phosphatase 94 U/L (46-116); Anion Gap 16.4 mmol/L (3-11); BUN 18 mg/dL (7-18); Bilirubin, Total 0.4 mg/dL (0.2-1.0); CO2 19.6 mmol/L (21.0-32.0); CREATININE 0.8 mg/dL (0.55-1.02); Calcium 8.3 mg/dL (8.5-10.1); Chloride 104 mmol/L (98-107); Glucose 133 mg/dL (74-106); Magnesium 2.5 mg/dL (1.8-2.4); NT-proBNP 6655 pg/mL (<300); Potassium 3.6 mmol/L (3.5-5.1); Sodium 140 mmol/L (136-145)
[2023-11-02 20:08] LABS: Source Nasopharynx
[2023-11-02 20:10] LABS: Troponin I 2005 ng/L (< or =60)
--- NOTE | 2023-11-02 20:11 | W.ED.GENAD ---
HPI General Mode of arrival: EMS. Date/Time Provider Initiated Documentation: 11/02/23 19:10. Limitations to Documentation: altered mental status. Information obtained by: patient, family, EMS, RN notes reviewed and old records reviewed. HPI Narrative: Time seen was on arrival in bed 2. The patient is a 78-year-old female smoker who is not currently taking any medications other than [id number] Apurva aspirin which she takes every 6 hours for spinal stenosis. She presents today with shortness of breath which began at 1 AM this morning. She is a smoker but does not use oxygen at home. She does not use inhalers and does not have a history of COPD. She lives with her son who does most of the errands and she has not been exposed to any sick contacts. She has spinal stenosis and chronic back pain which she describes as constant located up and down her back and radiating to her legs. She says it is not any worse than usual. She has had a cough but no fever. EMS heard wheezing on exam. They said she was weak and slightly dizzy and shaky. Her initial blood pressure was 90/50 repeat blood pressure was 110 systolic with a heart rate of 102. She was afebrile and her fingerstick blood sugar was 164. The patient denied any, abdominal pain or GI bleeding. Her son tells me she does have a history of hemorrhoids that occasionally bleed but has not had any bleeding recently. The patient has mild peripheral edema which she tells me is unchanged. She denied any saddle anesthesia or new bowel or bladder incontinence or retention. She did see her primary care recently for checkup. No aggravating or alleviating factors. The patient does not have a known history of coronary artery disease. The patient tells me that she would like everything done and this was corroborated by her son, she is therefore a full code. Related Data Home Medications Medication Instructions Recorded Confirmed celecoxib 200 mg capsule (Celebrex) 200 mg PO DAILY #90 caps 06/18/23 11/02/23 manual wheelchair #1 ea 07/09/23 11/02/23 aspirin-caffeine 500 mg-32.5 mg 1 tab PO .Q6HR 11/02/23 11/02/23 tablet (Back and Body Pain Reliever) [id number]-acetaminophen 15 ml PO QHS 11/02/23 11/02/23 6.25 mg-5 mg-10 mg-325mg/15mL oral liqd (Vicks NyQuil Severe Cold-Flu) Previous Rx's Medication Instructions Recorded celecoxib 200 mg capsule (Celebrex) 200 mg PO DAILY #90 caps 06/18/23 manual wheelchair #1 ea 07/09/23 Allergies Allergy/AdvReac Type Severity Reaction Status Date / Time No Known Allergies Allergy Verified 11/02/23 22:01 General Stated Complaint: SOB GARY: 3 Review of Systems Narrative: see hpi Exam Narrative Exam Narrative: Patient is a thin elderly female who was initially alert and oriented but then became more confused. Her vital signs revealed a blood pressure 145/45 heart rate 100 respiratory rate 17 she was afebrile with a room air O2 sat between 96 and 100% but she did appear mildly short of breath. Her vital signs are within normal limits. She is borderline tachycardic. She does appear quite pale. Const Nutritional Appearance: thin and underweight Orientation: alert Other: As above [facility] Head: normal to inspection, normocephalic, atraumatic and other (Conjunctiva are pale) Ears: hearing grossly normal bilaterally and external ears normal General nose exam: external nose normal, nares normal and no nasal discharge Face and sinus: normal facial exam, sinuses nontender and face symmetric Mouth: oral mucosae normal, lip normal, tongue normal, oropharynx normal and other (Normal phonation. The patient is handling secretions.) Throat: posterior oropharynx normal and uvula midline Other: Slightly dry mucous membranes Eyes Other: Her pupils are reactive to light. There is a small amount of purulent material in the right eye and slight conjunctival injection. Neck Neck: normal visual inspection, full ROM, no lymphadenopathy, no meningeal signs, trachea midline and supple Lymphatic: no lymphadenopathy noted Other: Mild JVD Chest Chest: normal inspection of the chest Resp Effort & Inspection: tachypneic Other: The patient has bibasilar rales greater in the right than on the left. No retractions or nasal flaring. Slight prolongation of expiratory phase. No rhonchi or wheezing is noted. Cardio Jugular venous pressure: other (Mild JVD) Palpation: normal PMI Rate: tachycardic Rhythm: regular rhythm Heart Sounds: S1 normal, S2 normal, no gallops, murmur (1/6 systolic ejection murmur) and no rubs Bruits: no abdominal aortic bruits Pulses: dorsalis pedis present Other: Mild pedal edema. Cool extremities GI Inspection: normal to inspection and non-distended Palpation: soft, no hepatosplenomegaly, no guarding and nontender Auscultation: normal bowel sounds General: No CVA tenderness Back/Spine/Pelvis Back: no CVA tenderness and No back tenderness Cervical Spine: normal cervical lordosis, cervical ROM normal, No cervical muscular tenderness, No pain with cervical ROM, No cervical spinal tenderness and No step off deformity Thoracic/Lumbar Spine: thoracic and lumbar spine normal to inspection, No thoracic spinal tenderness and No lumbar spinal tenderness Other: Mild kyphosis. No midline tenderness or step-off. No swelling or discoloration Skin Other: Her skin is pale for ethnicity. Her conjunctivae appear normal. Neuro General: patient alert, patient awake, patient oriented x3, moves all extremities, no meningeal signs, no focal motor deficits and CN's II-XI intact bilaterally Cranial Nerves: CN's II-XI intact bilaterally, PERRL, accommodation normal, EOM intact bilaterally, no nystagmus, facial strength normal, tongue midline and hearing normal Cognition: normal cognition Speech: speech normal Gait: normal gait Motor: muscle tone normal throughout and strength 5/5 throughout Sensory Exam: no sensory deficits noted DTR's: Rt Biceps: 2+, Lt Biceps: 2+, Rt Patellar: 2+, Lt Patellar: 2+, Rt Ankle: 1+ and Lt Ankle: 1+ Plantar Reflexes: Downgoing: bilateral Pupils: Normal pupillary reactivity/response: bilateral Extrem Other: Mild pedal edema. Mild clubbing. Cool extremities. No asymmetric swelling Psych Appearance: grossly normal Affect: normal affect Attitude: cooperative Thought Process: normal Thought Content: normal Insight: insight good Judgment: judgment good Other: The patient appears to have capacity make medical decisions. Course I have discussed the case with cardiology at [facility]. I have reviewed her labs and advised not to give Plavix or heparin. Agreed with the plan to transfuse to 8. They requested a CT of the chest abdomen and pelvis and the nitro drip and Lasix. I have reviewed the patient's chest x-ray and she is not in congestive heart failure. I have accepted the patient for the morning Dr. Hein will be the accepting physician. We have consulted the hospitalist and awaiting a callback. The patient became more confused in the department and I am concerned that her oxygen carrying capacity is diminished from her anemia. We have placed her on supplemental oxygen and this did not improve her altered mental status. I requested high flow oxygen and respiratory refused to come in because they said her sat was 100% so this does not mean she is oxygenating. I do not think with her confusion she will tolerate CPAP. The nursing staff is attempting to do high flow oxygen in the department. I did discuss the case with [facility] after consulting on-call hospitalist. I also discussed the case with [facility] neither have beds. Vital Signs Vital signs: Vital Signs Temperature 36.7 C 11/02/23 19:07 Pulse 100 H 11/02/23 19:07 Respiratory Rate 17 11/02/23 19:07 Blood Pressure 125/45 L 11/02/23 19:07 Pulse Oximetry 96 11/02/23 19:07 Temperature 36.7 C 11/02/23 19:10 Temperature Source Oral 11/02/23 19:10 Pulse 93 H 11/02/23 19:31 Pulse 94 H 11/02/23 19:50 Respiratory Rate 17 11/02/23 19:50 Respiratory Effort Short of Breath 11/02/23 19:13 Respiratory Depth Normal 11/02/23 19:13 Respiratory Pattern Normal 11/02/23 19:13 Blood Pressure 102/33 L 11/02/23 19:31 Blood Pressure Mean 57 11/02/23 19:31 Blood Pressure Position Supine 11/02/23 19:10 Pulse Oximetry 100 11/02/23 19:50 Oxygen Delivery Method Nasal Cannula 11/02/23 19:25 Oxygen Flow Rate 2 11/02/23 19:25 Pain Level 10 11/02/23 19:10 Comment Pt c/o chronic back pain 11/02/23 19:10 Lab/Test Results Lab/Test Results: Laboratory Tests Range/Units 11/02/23 11/02/23 19:12 19:17 WBC (4.4-10.8) 10^3/uL 5.68 RBC (3.93-5.22) 10^6/uL 3.20 L Hgb (11.2-15.7) g/dL 6.2 L* Hct (36.0-46.0) % 23.1 L MCV (80-95) fL 72 L MCH (27.0-33.0) pg 19.4 L MCHC (32.0-36.0) % 26.8 L RDW (11.7-14.6) % 22.0 H Plt Count (130-400) 10^3/uL 264 MPV (8.0-11.0) fL 10.6 Immature Gran % 0.5 Neutrophils % 85.3 Lymphocytes % 8.1 Monocytes % 4.8 Eosinophils % 0.4 Basophils % 0.9 Nucleated RBC % (0.0-0.3) % 0.0 Absolute Neutrophils (1.2-6.7) 10^3/uL 4.85 Absolute Lymphocytes (1.2-3.4) 10^3/uL 0.46 L Absolute Monocytes (0.1-0.8) 10^3/uL 0.27 Absolute Eosinophils (0.0-0.7) 10^3/uL 0.02 Absolute Basophils (0.0-0.2) 10^3/uL 0.05 RBC Morphology See Below Hypochromasia 2+ Anisocytosis 2+ Microcytosis 3+ Ovalocytes Not Applicable VBG pH (7.31-7.41) 7.33 VBG pCO2 (41-51) mmHg 37 L VBG pO2 mmHg 42 VBG HCO3 (23-28) mmol/L 20 L VBG Total CO2 (24-29) mmol/L 19 L VBG O2 Saturation % 68 VBG Base Excess (-2-3) mmol/L -7 L VBG Lactate (0.6-1.4) mmol/L 1.5 H Sodium (136-145) mmol/L 140 Potassium (3.5-5.1) mmol/L 3.6 Chloride (98-107) mmol/L 104 Carbon Dioxide (21.0-32.0) mmol/L 19.6 L Anion Gap (3-11) mmol/L 16.4 H BUN (7-18) mg/dL 18 Creatinine (0.55-1.02) mg/dL 0.8 Est GFR (CKD-EPI 2020) (mL/min/1.73m2) 74.90 Glucose (74-106) mg/dL 133 H Calcium (8.5-10.1) mg/dL 8.3 L Magnesium (1.8-2.4) mg/dL 2.5 H Total Bilirubin (0.2-1.0) mg/dL 0.4 AST (15-37) U/L 30 ALT (14-59) U/L 13 L Alkaline Phosphatase (46-116) U/L 94 Troponin I (< or =60) ng/L 2004 H* NT-Pro-B Natriuret Pep (<300) pg/mL 6655 H Total Protein (6.4-8.2) g/dL 7.0 Albumin (3.4-5.0) g/dL 3.2 L COVID-19 Source Nasopharynx SARS-CoV-2 (PCR) (Negative) Negative Influenza Type A (PCR) (Negative) Negative Influenza Type B (PCR) (Negative) Negative RSV (PCR) (Negative) Negative Medical Decision Making This is a 78-year-old female who has no known history of coronary artery disease who presents for shortness of breath, which began acutely at 130 this morning. She has rales on exam and mild peripheral edema. She certainly could be in congestive heart failure but does not endorse any chest pain. She does have back pain which is unchanged but could certainly have an aortic dissection although she does not appear an extremis and appears to have intact distal pulses. She appears very pale and anemic and could have decreased oxygen carrying capacity as the cause of her shortness of breath. Other considerations are a viral syndrome such as flu COVID RSV or bacterial infection and/or pneumonia. Mild plan is to obtain blood work including a CBC and I will type and screen her because she does appear anemic. We will check a comprehensive metabolic panel to evaluate her electrolytes renal function and liver function. I will give her supplemental oxygen because she does appear short of breath. Again a normal oxygen saturation does not mean she is oxygenating adequately if she does not have sufficient oxygen carrying capacity. We will check her for flu COVID and RSV. A DuoNeb was initiated by the nurse prior to my evaluation. I did not hear any wheezing on exam I do hear rales which makes me more concerned about congestive heart failure. The patient does not appear to have any bruising. And there is no history of GI bleeding. She is only taking aspirin at home. She is a smoker and certainly could be having a COPD exacerbation as well. Differential Diagnosis Differential Diagnosis: CHF, infection, COPD, ACS, cancer, DVT Medical Records Medical records reviewed: Yes I reviewed the patient's medical records. Imaging Data Radiologic Study: Imaging: CT Scan (CTA chest abdomen and pelvis with IV contrast) Radiologist's impression: 1. Significant diffuse atherosclerotic changes of the aorta and its branches. No evidence of aortic aneurysm or dissection. No hemodynamically significant stenosis in the mesenteric/renal arteries. 2. Thyromegaly with multiple thyroid cysts/nodules. Enlarged thyroid gland produces moderate narrowing of the trachea at the level of the thoracic inlet. 3. Small focus of subpleural consolidation in the superior segment of the right lower lobe. The appearance is most suggestive of pneumonia, although short interval follow-up recommended to exclude neoplastic lesion. Minimal right pleural effusion also noted Radiologic Study #2: Imaging: CT Scan (Head Noncon) Radiologist's impression: No acute intracranial abnormality. Lab Data Lab results reviewed: Yes I reviewed the patient's lab results. Lab results narrative: Extremely elevated troponin. Elevated BNP. Severe anemia ECG Data Attestation: I personally reviewed and interpreted this ECG (s) as follows: Interpretation: Elevated troponin Quality:SDOH Health Related Social Needs: Health related social needs details The patient lives with her son who has no transportation Health related social needs details: The patient lives with her son who has no transportation Critical Care Time Critical Care Time Critical Care Time: Yes Total Critical Care Time: 71 Attestation: This includes time at the bedside with frequent reassessment. This also includes review of old records, labs EKG and radiographs. This includes consultation with hospitalist and cardiology at [facility] and discussion with the transfer center at [facility] and [facility] and multiple consultations with the hospitalist [facility] All Active Problems Pneumonia (Acute) Hypoprothrombinemia (Acute) Acute on chronic anemia (Acute) NSTEMI (non-ST elevated myocardial infarction) (Acute) Fracture of fibula, distal, right, closed (Acute ~07/09/23) Depression (Acute 05/31/15) Spinal stenosis, unspecified region other than cervical (Chronic 10/26/11) Smoker unmotivated to quit (Acute 05/31/15) Pure hypercholesterolemia (Acute 02/27/17) Iron deficiency anemia due to chronic blood loss (Chronic 03/16/14) due to NSAID, ASA, ? lesion Insomnia (Acute 02/27/17) Essential hypertension (Acute 01/26/13) Diabetes mellitus (Chronic 01/26/13) Radicular pain of right lower extremity (Acute) Chronic low back pain with right-sided sciatica (Acute) Medical History Continuous opioid dependence (10/21/13) Chronic GI bleeding (07/18/15) Surgical History Abdominal hysterectomy Cholecystectomy Family History Father Myocardial infarction Grandfather Essential hypertension Social History Smoking/Tobacco Use Status: Current every day Tobacco Type: cigarettes Quit status: not considering quitting Smoking risk assessment performed?: Yes Alcohol Intake: former Details: alcholic quit 1978 Drug use: Never Substance use type: does not use Adopted: No Caregiver/Support person: Yes Foster care: No Household members: other Details: self and son Housing: apartment Number of Children: 1 number of grandchildren: 0 Communication Needs: None 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, 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, 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 Pets and animals: Yes Pets and animals: cat(s) What is your relationship status?: How often do you talk on the phone with friends or family?: three or more times per week Panel score (0-1 are the most socially isolated patients): 1 What type of physical activity do you participate in: none Drive intox or ride w/intox medical delivery driver: No Water heater temp set <120 deg: Yes Working smoke detector in home: Yes Fire extinguisher in home: Yes Carbon monox detector in home: Yes Do you feel safe at home: Yes Do you feel safe in your relationship?: Yes Discharge Plan Disposition Patient Disposition: Admit to [facility] Condition: Critical Discharge Details Clinical Impression: Acute alteration in mental status, Anemia, Non-ST elevation [place] (NSTEMI) Admit Date/Time: 11/02/23 23:02 Admit Provider: Jesse Spence Attending Provider: Jesse Spence Primary Care Provider: Leonila Rich ED Provider: Amanda Garcia
[2023-11-02 20:13] LABS: PTT Activated 31.6 sec (23.6-32.8); Prothrombin Time 42.4 sec (9.1-11.1)
[2023-11-02 20:16] LABS: INR 4.8 (0.9-1.1)
[2023-11-02 20:18] LABS: Procalcitonin < 0.1 ng/mL
[2023-11-02 20:19] LABS: D-Dimer 928 ng/mlFEU (<500)
--- NOTE | 2023-11-02 20:29 | DI.VRAD_ITS ---
PROCEDURE INFORMATION: Exam: XR Chest Exam date and time: 11/02/2023 7:45 PM Age: 78 years old Clinical indication: Shortness of breath; Patient HX: SOB TECHNIQUE: Imaging protocol: Radiologic exam of the chest. Views: 1 view. COMPARISON: CR CHEST 2 VIEWS PA,LAT 06/24/2017 1:05 PM FINDINGS: Lungs: There has been interval development of moderate diffuse pulmonary vascular and interstitial prominence. No prominent areas of consolidation present. Small calcified granuloma in the left lower lobe. Pleural spaces: Unremarkable. No pleural effusion. No pneumothorax. Heart/Mediastinum: Unremarkable. No cardiomegaly. Bones/joints: Unremarkable. IMPRESSION: Moderate congestive changes Dictated and Authenticated by: Patrick Fraser MD. Ordering:BEN Patel MD
--- NOTE | 2023-11-02 20:30 | DI.CT_ITS ---
Exam(s) CT THORAX ABD/PEL CTA EXAM: CT THORAX ABD/PEL CTA CLINICAL HISTORY: back pain. TECHNIQUE: Imaging Protocol: Axial CT angiography was performed with multi-slice acquisition and mu lti-planar and/or 3D reconstructions. CONTRAST MATERIAL: Intravenous: Omnipaque 350 Contrast volume:100 ml COMPARISON: CT RENAL COLIC WO CONTRAST from 12/29/2013 MR MRI - THORACIC SPINE WO CONT from 04/02/2014 MR MRI - LUMBAR SPINE WO CONTRAST from 06/24/2017 FINDINGS: CHEST: Exam limited by respiratory motion. Pulmonary Arteries: No evidence of filling defects to suggest pulmonary emboli. Tracheobronchial tree: No bronchiectasis or mucus plugging. Mediastinum and Rosario: No dominant adenopathy or fluid collection. Pulmonary parenchyma: Mild to moderate emphysematous changes in the upper lobes. Patchy infiltrate s een posteriorly in the right lower lobe.. No dominant measurable mass. Pleura: Tiny right effusion. No pneumothorax. Heart: The heart is mildlydilated. Mild coronary artery calcifications are seen. Aorta: Severe atherosclerotic changes with irregular mural thrombus throughout the aorta. No evidenc e of dissection. Ascending aorta measures 3.6 cm. Bones: Unremarkable for age. Tubes, Catheters, and Lines: None. Soft tissues: Markedly enlarged thyroid causes some narrowing of the transverse dimension of the trac hea. ABDOMEN and PELVIS: Exam limited by motion. Liver: Normal size. Normal density. No suspicious measurable mass. Portal, Superior Mesenteric, and Splenic Veins: Unremarkable. Gallbladder and Biliary Tract: Status post cholecystectomy. Expected dilatation of the common bile d uct, stable from prior.. Pancreas: Normal density, no abnormal calcifications or inflammatory process. Spleen: Normal. Adrenals: No masses seen. Kidneys: Normal size, contour and axis. No radiodense stones. No obstructive uropathy. No masses seen . Vasculature: Abdominal aorta non-dilated. Severe atherosclerotic changes of the aorta. Large irregu lar area of mural thrombus at the upper abdominal aorta eccentric toward the left. No aneurysm or di ssection. Moderate atherosclerotic changes of the iliac arteries. No significant stenosis of celiac , mesenteric or renal arteries. Bowel: No obstruction or bowel wall thickening. Appendix is unremarkable. Peritoneal Cavity: No ascites, collection or mesenteric inflammatory response. Lymph Nodes: Within normal limits. Soft Tissues: Unremarkable. Bladder: Symmetric distention, no gross wall thickening. Reproductive Organs: Status post hysterectomy. Bones: Degenerative changes and mild scoliosis.. [id number] compression of the superior endpla te of L2 which appears chronic, unchanged from 2017 MRI.. IMPRESSION: 1. Exam limited by motion. No evidence of pulmonary embolism or aortic dissection. Severe atheroscl erotic changes of the aorta without evidence of aneurysm. 2. Posterior right lower lobe infiltrate. No acute abdominal or pelvic process. RADIATION DOSE DELIVERED: Total DLP DATA REPOSITORY: All CT scans at this facility are submitted to the National Radiology Data Registry (NRDR) Dose Index Registry (DIR) with the [employer] ([employer]). RADIATION OPTIMIZATION: All CT scans at this facility use at least one of these dose optimization te chniques: automated exposure control; mA and/or kV adjustment per patient size (includes targeted exa ms where dose is matched to clinical indication); or iterative reconstruction.
[2023-11-02] MEDS: Furosemide 20 MG/2 ML VIAL IVP (20:39)
[2023-11-02] MEDS: nitroGLYcerin in D5W 50 MG/250 ML BTL IV (20:40)
--- NOTE | 2023-11-02 21:00 | DI.CT_ITS ---
Exam(s) CT HEAD WO EXAM: CT HEAD WO CLINICAL HISTORY: altered mental status. TECHNIQUE: Imaging Protocol: Axial computed tomography images with coronal and sagittal reformatted images were created and reviewed COMPARISON: CT HEAD WITH/WITHOUT CONTRAST from 01/04/2009 FINDINGS: Exam limited by motion. Ventricles and Extra axial spaces: Normal in size and morphology for the patient's age. Hemorrhage: None. Cerebral parenchyma: No evidence of acute infarct or mass. Old left basal ganglia lacunar infarct. Midline shift: None. Brainstem/Cerebellum: Normal. Calvarium: Normal. Visualized Paranasal sinuses/Mastoids: Clear. Soft Tissues: Unremarkable. IMPRESSION: No acute intracranial process. RADIATION DOSE DELIVERED: Total DLP DATA REPOSITORY: All CT scans at this facility are submitted to the National Radiology Data Registry (NRDR) Dose Index Registry (DIR) with the [employer] (ACR). RADIATION OPTIMIZATION: All CT scans at this facility use at least one of these dose optimization te chniques: automated exposure control; mA and/or kV adjustment per patient size (includes targeted exa ms where dose is matched to clinical indication); or iterative reconstruction.
[2023-11-02] MEDS: Normal Saline Flush 10 ML SYR IVP (21:09)
[2023-11-02 21:16] LABS: Troponin I 2027 ng/L (< or =60)
--- NOTE | 2023-11-02 21:30 | RT.EKG_ITS ---
APPROVED REPORT Exam: Resting ECG Reason for Exam: elevated trop Patient Location: E HR:97 bpm ECG Measurements Heart Rate [address] 205 P 60 QRSd 95 QRS 40 QT 365 T 56 QTc 465 Conclusion Sinus rhythm...normal P axis, V-rate 60- 99 Low voltage, extremity leads...all extremity leads <0.5mV Borderline ST depression, anterolateral leads...ST <-0.07mV, I aVL V2-V6
[2023-11-02] MEDS: Normal Saline - Diluent 50 ML VIAL IJ (21:40)
[2023-11-02] MEDS: Omnipaque 350 MG/ML 100 ML BTL IJ (21:41)
--- NOTE | 2023-11-02 22:01 | DI.VRAD_ITS ---
PROCEDURE INFORMATION: Exam: CT Head Without Contrast Exam date and time: 11/02/2023 9:29 PM Age: 78 years old Clinical indication: Altered mental status/memory loss; Patient HX: AMS TECHNIQUE: Imaging protocol: Computed tomography of the head without contrast. COMPARISON: No relevant prior studies available. FINDINGS: Brain: Moderate generalized cerebral atrophy. No intracranial mass, hemorrhage or evidence of acute ischemia. Cerebral ventricles: No ventriculomegaly. Paranasal sinuses: Visualized sinuses are unremarkable. No fluid levels. Mastoid air cells: Visualized mastoid air cells are well aerated. Bones/joints: Unremarkable. No acute fracture. Soft tissues: Unremarkable. Other findings: Study limited by motion artifact. IMPRESSION: No acute intracranial abnormality Dictated and Authenticated by: Patrick Fraser MD. Ordering:BEN Patel MD
--- NOTE | 2023-11-02 22:14 | DI.VRAD_ITS ---
PROCEDURE INFORMATION: Exam: CTA Chest With Contrast CTA Abdomen and Pelvis With Contrast Exam date and time: 11/02/2023 9:32 PM Age: 78 years old Clinical indication: Other: Back pain TECHNIQUE: Imaging protocol: Computed tomographic angiography of the chest with contrast. Exam focused on the arteries. Computed tomographic angiography of the abdomen and pelvis with contrast. Exam focused on the arteries. 3D rendering (Not supervised by radiologist): MIP and/or 3D reconstructed images were created by the technologist. Contrast material: OMNIPAQUE 350; Contrast volume: 100 ml; Contrast route: INTRAVENOUS (IV); COMPARISON: CR XR PORTABLE CHEST AP 11/02/2023 7:45 PM FINDINGS: VASCULATURE: Pulmonary arteries: Normal. No pulmonary emboli. Aorta: Significant mural thrombus and atherosclerotic calcification throughout the aorta. No evidence of aortic aneurysm or dissection. Celiac trunk and mesenteric arteries: Mild stenosis of the origin of the superior mesenteric artery. Celiac artery appears widely patent. Inferior mesenteric artery is patent. Renal arteries: No occlusion or significant stenosis. Right iliac arteries: Mild diffuse atherosclerotic stenosis. No occlusion. Left iliac arteries: Mild diffuse atherosclerotic stenosis. No occlusion. Thyroid: Moderate enlargement of the both lobes of the thyroid gland with multiple cysts and/or nodules. Thyromegaly produces moderate narrowing of the trachea at the level of the thyroid. CHEST: Lungs: Mild changes of emphysema in the upper lungs. Small focus of subpleural consolidation in the superior segment of the right lower lobe. Pleural spaces: Minimal right pleural effusion noted. No pneumothorax. Heart: Unremarkable. No cardiomegaly. No pericardial effusion. ABDOMEN AND PELVIS: Liver: No mass. Gallbladder and bile ducts: Unremarkable. No calcified stones. No ductal dilation. Pancreas: Unremarkable. No mass. No ductal dilation. Spleen: Unremarkable. No splenomegaly. Adrenal glands: Unremarkable. No mass. Kidneys and ureters: Unremarkable. No solid mass. No hydronephrosis. Stomach and bowel: Unremarkable. No obstruction. No mucosal thickening. Appendix: No evidence of appendicitis. Intraperitoneal space: Unremarkable. No free air. No significant fluid collection. Urinary bladder: Unremarkable. No mass. Reproductive: Uterus is surgically absent. No adnexal abnormality. Lymph nodes: Unremarkable. No enlarged lymph nodes. Bones/joints: Moderate degenerative disc changes throughout the spine. No acute fracture. Severe degenerative disc changes at the L3-L4 level. Severe facet arthropathy in the lumbar spine. Chronic appearing moderate depression of the superior endplate of L2. Soft tissues: Unremarkable. IMPRESSION: 1. Significant diffuse atherosclerotic changes of the aorta and its branches. No evidence of aortic aneurysm or dissection. No hemodynamically significant stenosis in the mesenteric/renal arteries. 2. Thyromegaly with multiple thyroid cysts/nodules. Enlarged thyroid gland produces moderate narrowing of the trachea at the level of the thoracic inlet. 3. Small focus of subpleural consolidation in the superior segment of the right lower lobe. The appearance is most suggestive of pneumonia, although short interval follow-up recommended to exclude neoplastic lesion. Minimal right pleural effusion also noted Dictated and Authenticated by: Patrick Fraser MD. Ordering:BEN Patel MD
--- NOTE | 2023-11-02 22:54 | HPE_ITS ---
Date of service: 11/02/23 Time of Service: 22:54 Assessment and Plan Assessment and plan (1) NSTEMI (non-ST elevated myocardial infarction): Start date: 11/02/23 Status: Acute Assessment and plan: This is a 78-year-old lady presenting with shortness of breath over the last day prior to mission and found to have mildly elevated troponins just over 1999 which appear to be plateauing. Patient is essentially asymptomatic other than the shortness of breath and some confusion with her severe anemia. Family does not want aggressive care and she has been accepted at [facility] [place] under Dr. Sanchez's service and cardiology. Her PT/INR is elevated with unknown etiology. Investigations are ongoing. Patient will not receive a frozen plasma to allow INR to be elevated the patient heparin at this time. She also was not given aspirin or Plavix. He was placed on IV nitroglycerin drip to be adjusted but continue until transferred. Will continue to trend troponins while transfusing to hemoglobin of 8 g/dL or higher O2 supplementation anemia will be ongoing. She is a full code. (2) Acute on chronic anemia: Start date: 11/02/23 Status: Acute Assessment and plan: Patient is most likely having NSTEMI secondary to severe anemia and will be excepted to [facility] [place] cardiology service under Dr. Sanchez. She is having transfusion 2 units of packed red blood cells initially and if hemoglobin is still below 8 g/dL she will have continued transfusion without fresh frozen plasma allowing PT/INR to be elevated while awaiting transfer for cardiology which she will be watched closely for bruising or acute bleeding though with INR below 5 reversal is not necessary. Long-term she needs evaluation of her GI tract for blood loss. 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 Check vitamin K levels and fibrinogen levels as well as ultrasound of the liver patient having been a previous heavy drinker. Liver functions are elevated but this can occur chronic cirrhosis. Etiology and treatment of her hypoproteinemia can be further addressed once patient's cardiac status is stable. She remains a full code. (4) Pneumonia: Start date: 11/02/23 Status: Acute Assessment and plan: Patient was not present symptoms of pneumonia but CT did reveal possible infiltrate right lower lobe with patient initiated on doxycycline and Rocephin. Qualifiers: Laterality: right Lung location: lower lobe of lung Pneumonia type: d ue to unspecified organism Qualified Code(s): J18.9 - Pneumonia, unspecified organism (5) Iron deficiency anemia due to chronic blood loss: Status: Chronic Assessment and plan: Patient needs further evaluation for blood loss anemia versus poor nutrition with nutritional deficiency of iron. She does have microcytosis and now symptomatic acute anemia. Her serum iron not severely low and ferritin is normal. This acute process may be more secondary to acute blood loss with her hypoprothrombinemia. There was no acute azotemia indicating recent upper GI bleeding and patient did have microcytosis most likely secondary to the chronic blood loss. Family does not report any recent events other than hemorrhoids chronically. (6) Spinal stenosis, unspecified region other than cervical: Status: Chronic Assessment and plan: Patient is on aspirin and Celebrex chronically which may be contributing to GI blood loss and needs to be reevaluated with endoscopies once stable. (7) Diabetes mellitus: Status: Chronic Assessment and plan: Patient has a history of diabetes and slight hyperglycemia with glucometer measures to be followed while she is hospitalized. Short acting insulin coverage will be given only if patient has measurements within the sensitive sliding scale. Qualifiers: Diabetes mellitus complication status: with other specified complication Diabetes mellitus manager alliance insulin use: without manager alliance use Diabetes mellitus type: type 2 Qualified Code(s): E11.69 - Type 2 diabetes mellitus with other specified complication History of Present Illness History of Present Illness Chief Complaint: Shortness of breath for 24 hours N arrative: This is a 78-year-old female patient who lives with her son presented to the ED with 24 hours of increasing shortness of breath. She was found to be profoundly anemic with a history of blood loss anemia and iron deficiency in the past requiring transfusion though this has not been recent with the last hemoglobin being in the 13's in 2017 and 2019. In the ED she became more confused as she was receiving blood transfusion but did not have hypoxemia or worsening respiratory symptoms. She was found to have an elevated troponin over 1999 which remained fairly flat with repeat measurements and patient having an EKG not revealing STEMI but Q waves and nonspecific changes. Patient was not having chest pain but was initiated on IV nitroglycerin at the recommendations of cardiology from [facility] [place]. She has been on aspirin at home for pain as well as Celebrex for back pain but has seen no blood in her stool is send not reporting bleeding other than hemorrhoids at times. She had no bruising. Her PT/INR was elevated with the INR just above 4 but below 5 with no apparent etiology. Patient had been a heavy drinker years ago with her but recently has had less alcohol intake and has no history of cirrhosis the CT imaging of the abdomen not revealing abnormal liver but ultrasound will be obtained in the morning. This may be contributing to her blood loss through the GI tract. Serum iron was low but not severely low and ferritin was normal. Patient may have had a recent acute blood loss not noticed by her family. Her NSTEMI appears to be secondary to her severe anemia. Patient was slightly confused and hard of hearing at the time of my exam and offers no further history. She is a full code with this confirmed with the son by phone. This may be will evaluate the patient's chronic conditions and minimal follow-up with the medical system by choice. Review of Systems Narrative: 13 point review of systems otherwise unobtainable with patient's confusion at the time my exam. PFSH All Active Problems Pneumonia (Acute) Hypoprothrombinemia (Acute) Acute on chronic anemia (Acute) NSTEMI (non-ST elevated myocardial infarction) (Acute) Fracture of fibula, distal, right, closed (Acute ~07/09/23) Depression (Acute 05/31/15) Spinal stenosis, unspecified region other than cervical (Chronic 10/26/11) Smoker unmotivated to quit (Acute 05/31/15) Pure hypercholesterolemia (Acute 02/27/17) Iron deficiency anemia due to chronic blood loss (Chronic 03/16/14) due to NSAID, ASA, ? lesion Insomnia (Acute 02/27/17) Essential hypertension (Acute 01/26/13) Diabetes mellitus (Chronic 01/26/13) Radicular pain of right lower extremity (Acute) Chronic low back pain with right-sided sciatica (Acute) Medical History Continuous opioid dependence (10/21/13) Chronic GI bleeding (07/18/15) Surgical History Abdominal hysterectomy Cholecystectomy Family History Father Myocardial infarction Grandfather Essential hypertension Social History Smoking/Tobacco Use Status: Current every day Tobacco Type: cigarettes Quit status: not considering quitting Smoking risk assessment performed?: Yes Alcohol Intake: former Details: alcholic quit 1977 Drug use: Never Substance use type: does not use Adopted: No Caregiver/Support person: Yes Foster care: No Household members: other Details: self and son Housing: apartment Number of Children: 1 number of grandchildren: 0 Communication Needs: None 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, 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, 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 Pets and animals: Yes Pets and animals: cat(s) What is your relationship status?: How often do you talk on the phone with friends or family?: three or more times per week Panel score (0-1 are the most socially isolated patients): 1 What type of physical activity do you participate in: none Drive intox or ride 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: No Water heater temp set <120 deg: Yes Working smoke detector in home: Yes Fire extinguisher in home: Yes Carbon monox detector in home: Yes Do you feel safe at home: Yes Do you feel safe in your relationship?: Yes Meds Allergies and Home Medications Allergies Allergy/AdvReac Type Severity Reaction Status Date / Time No Known Allergies Allergy Verified 11/02/23 22:01 Home Medications Medication Instructions Recorded Confirmed Type celecoxib 200 mg capsule (Celebrex) 200 mg PO DAILY #90 caps 06/18/23 11/02/23 Rx manual wheelchair #1 ea 07/09/23 11/02/23 Rx aspirin-caffeine 500 mg-32.5 mg 1 tab PO .Q6HR 11/02/23 11/02/23 History tablet (Back and Body Pain Reliever) npabgpokfx-RB-RG-acetaminophen 15 ml PO QHS 11/02/23 11/02/23 History 6.25 mg-5 mg-10 mg-325mg/15mL oral liqd (Vicks NyQuil Severe Cold-Flu) Exam Narrative Exam Narrative: General: Patient appears older than stated age, thin and in moderate distress with confusion. She is not oriented to person, place or time. HEENT: Normocephalic, eyes with pupils equal react light symmetrically, extraocular movement intact and sclera anicteric. Oropharynx with dry mucosa and congestion. Neck: Supple without JVD. Back: Kyphotic without CVA tenderness. Lungs: Fair aeration and clear to auscultation. Bronchovesicular breath sounds diffusely with patient having occasional rhonchi and coarse crackles over the left hemithorax. Imaging revealed possible right lower lobe infiltrate. Heart: Regular rate and rhythm with no murmurs gallops appreciated. Distant heart sounds. Breast: Exam deferred. Abdomen: Scaphoid contour, soft nontender to palpation with no palpable hepatosplenomegaly. Genitalia/rectal: Exam deferred. Patient has a Arnett catheter in place. Extremities: Without clubbing, cyanosis or grossly pitting edema. Fair capillary refill. Patient does have nicotine stains over her left second and third fingers. Skin: Pale, warm and dry. Neuro: Cranial nerves II through XII grossly intact, no focal motor deficits. No tremor. Psych: Flattened affect with agitated mood patient being uncooperative with confusion with probable acute delirium secondary to severe anemia and acute cardiac process. Remote and recent memory testing on hospice. Results Imaging Imaging Studies: Exam: CTA Chest With Contrast CTA Abdomen and Pelvis With Contrast Exam date and time: 11/02/2023 9:32 PM Age: 78 years old Clinical indication: Other: Back pain COMPARISON: CR XR PORTABLE CHEST AP 11/02/2023 7:45 PM FINDINGS: VASCULATURE: Pulmonary arteries: Normal. No pulmonary emboli. Aorta: Significant mural thrombus and atherosclerotic calcification throughout the aorta. No evidence of aortic aneurysm or dissection. Celiac trunk and mesenteric arteries: Mild stenosis of the origin of the superior mesenteric artery. Celiac artery appears widely patent. Inferior mesenteric artery is patent. Renal arteries: No occlusion or significant stenosis. Right iliac arteries: Mild diffuse atherosclerotic stenosis. No occlusion. Left iliac arteries: Mild diffuse atherosclerotic stenosis. No occlusion. Thyroid: Moderate enlargement of the both lobes of the thyroid gland with multiple cysts and/or nodules. Thyromegaly produces moderate narrowing of the trachea at the level of the thyroid. CHEST: Lungs: Mild changes of emphysema in the upper lungs. Small focus of subpleural consolidation in the superior segment of the right lower lobe. Pleural spaces: Minimal right pleural effusion noted. No pneumothorax. Heart: Unremarkable. No cardiomegaly. No pericardial effusion. ABDOMEN AND PELVIS: Liver: No mass. Gallbladder and bile ducts: Unremarkable. No calcified stones. No ductal dilation. Pancreas: Unremarkable. No mass. No ductal dilation. Spleen: Unremarkable. No splenomegaly. Adrenal glands: Unremarkable. No mass. Kidneys and ureters: Unremarkable. No solid mass. No hydronephrosis. Stomach and bowel: Unremarkable. No obstruction. No mucosal thickening. Appendix: No evidence of appendicitis. Intraperitoneal space: Unremarkable. No free air. No significant fluid collection. Urinary bladder: Unremarkable. No mass. Reproductive: Uterus is surgically absent. No adnexal abnormality. Lymph nodes: Unremarkable. No enlarged lymph nodes. Bones/joints: Moderate degenerative disc changes throughout the spine. No acute fracture. Severe degenerative disc changes at the L3-L4 level. Severe facet arthropathy in the lumbar spine. Chronic appearing moderate depression of the superior endplate of L2. Soft tissues: Unremarkable. IMPRESSION: 1. Significant diffuse atherosclerotic changes of the aorta and its branches. No evidence of aortic aneurysm or dissection. No hemodynamically significant stenosis in the mesenteric/renal arteries. 2. Thyromegaly with multiple thyroid cysts/nodules. Enlarged thyroid gland produces moderate narrowing of the trachea at the level of the thoracic inlet. 3. Small focus of subpleural consolidation in the superior segment of the right lower lobe. The appearance is most suggestive of pneumonia, although short interval follow-up recommended to exclude neoplastic lesion. Minimal right pleural effusion also noted Exam: CT Head Without Contrast Exam date and time: 11/02/2023 9:29 PM Age: 78 years old Clinical indication: Altered mental status/memory loss; Patient HX: AMS TECHNIQUE: Imaging protocol: Computed tomography of the head without contrast. COMPARISON: No relevant prior studies available. FINDINGS: Brain: Moderate generalized cerebral atrophy. No intracranial mass, hemorrhage or evidence of acute ischemia. Cerebral ventricles: No ventriculomegaly. Paranasal sinuses: Visualized sinuses are unremarkable. No fluid levels. Mastoid air cells: Visualized mastoid air cells are well aerated. Bones/joints: Unremarkable. No acute fracture. Soft tissues: Unremarkable. Other findings: Study limited by motion artifact. IMPRESSION: No acute intracranial abnormality Labs 11/02/23 19:17 11/02/23 19:17 Labs: Laboratory Results - last 24 hr 11/02/23 11/02/23 11/02/23 19:12 19:17 19:30 WBC 5.68 RBC 3.20 L Hgb 6.2 L* Hct 23.1 L MCV 72 L MCH 19.4 L MCHC 26.8 L RDW 22.0 H Plt Count 264 MPV 10.6 Immature Gran % 0.5 Neutrophils % 85.3 Lymphocytes % 8.1 Monocytes % 4.8 Eosinophils % 0.4 Basophils % 0.9 Nucleated RBC % 0.0 Absolute Neutrophils 4.85 Absolute Lymphocytes 0.46 L Absolute Monocytes 0.27 Absolute Eosinophils 0.02 Absolute Basophils 0.05 RBC Morphology See Below Hypochromasia 2+ Anisocytosis 2+ Microcytosis 3+ Ovalocytes Not Applicable PT 42.4 H INR 4.8 H* APTT 31.6 D-Dimer 928 H VBG pH 7.33 VBG pCO2 37 L VBG pO2 42 VBG HCO3 20 L VBG Total CO2 19 L VBG O2 Saturation 68 VBG Base Excess -7 L VBG Lactate 1.5 H Sodium 140 Potassium 3.6 Chloride 104 Carbon Dioxide 19.6 L Anion Gap 16.4 H BUN 18 Creatinine 0.8 Est GFR (CKD-EPI 2020) 74.90 Glucose 133 H Calcium 8.3 L Magnesium 2.5 H Total Bilirubin 0.4 AST 30 ALT 13 L Alkaline Phosphatase 94 Troponin I 2005 H* NT-Pro-B Natriuret Pep 6655 H Total Protein 7.0 Albumin 3.2 L Procalcitonin < 0.1 COVID-19 Source Nasopharynx SARS-CoV-2 (PCR) Negative Influenza Type A (PCR) Negative Influenza Type B (PCR) Negative RSV (PCR) Negative Patient ABO/Rh O Positive Antibody Screen NEGATIVE Crossmatch See Detail 11/02/23 20:52 WBC RBC Hgb Hct MCV MCH MCHC RDW Plt Count MPV Immature Gran % Neutrophils % Lymphocytes % Monocytes % Eosinophils % Basophils % Nucleated RBC % Absolute Neutrophils Absolute Lymphocytes Absolute Monocytes Absolute Eosinophils Absolute Basophils RBC Morphology Hypochromasia Anisocytosis Microcytosis Ovalocytes PT INR APTT D-Dimer VBG pH VBG pCO2 VBG pO2 VBG HCO3 VBG Total CO2 VBG O2 Saturation VBG Base Excess VBG Lactate Sodium Potassium Chloride Carbon Dioxide Anion Gap BUN Creatinine Est GFR (CKD-EPI 2020) Glucose Calcium Magnesium Total Bilirubin AST ALT Alkaline Phosphatase Troponin I 2026 H* NT-Pro-B Natriuret Pep Total Protein Albumin Procalcitonin COVID-19 Source SARS-CoV-2 (PCR) Influenza Type A (PCR) Influenza Type B (PCR) RSV (PCR) Patient ABO/Rh Antibody Screen Crossmatch Last Vital Signs Temp 36.6 C 11/02/23 21:46 Pulse 94 H 11/02/23 22:33 Resp 19 11/02/23 22:49 BP 118/39 L 11/02/23 22:33 Pulse Ox 100 11/02/23 22:49 Time Spent Time spent with Patient: >75 minutes Time was spent: preparing to see the patient(eg.review tests), obtaining and/or reviewing separately otained hiistory, ordering medications,tests, procedures, referring, communicating with other health ostomy care nurse, indepentently interpreting results and care coordination
[2023-11-03] VITALS (64 sets, daily range): BP systolic 86–127; BP diastolic 38–85; PULSE 89–100; RESP 9–28; TEMP 36.2–37.8; O2SAT 90–97
--- NOTE | 2023-11-03 | DI.CT_ITS ---
Exam(s) CT HEAD WO EXAM: CT HEAD WO CLINICAL HISTORY: worsening mental status changes. TECHNIQUE: Imaging Protocol: Axial computed tomography images with coronal and sagittal reformatted images were created and reviewed COMPARISON: CT CT HEAD WO from 11/02/2023 FINDINGS: Ventricles and Extra axial spaces: Normal in size and morphology for the patient's age. Hemorrhage: None. Cerebral parenchyma: No evidence of acute infarct or mass. Atrophy. White matter changes of small vessel disease. Old left basal ganglia lacunar infarct. Midline shift: None. Brainstem/Cerebellum: Normal. Calvarium: Normal. Visualized Paranasal sinuses:Clear. Mastoids: Clear. Soft Tissues: Unremarkable. ORBITS: Unremarkable. PITUITARY: Normal. IMPRESSION: No acute intracranial process. RADIATION DOSE DELIVERED: Total DLP DATA REPOSITORY: All CT scans at this facility are submitted to the National Radiology Data Registry (NRDR) Dose Index Registry (DIR) with the [employer] ([employer]). RADIATION OPTIMIZATION: All CT scans at this facility use at least one of these dose optimization te chniques: automated exposure control; mA and/or kV adjustment per patient size (includes targeted exa ms where dose is matched to clinical indication); or iterative reconstruction.
--- NOTE | 2023-11-03 | DI.RAD_ITS ---
Exam(s) XR CHEST 1V IN DI DEPT EXAM: XR CHEST 1V IN DI DEPT CLINICAL HISTORY: ?CHF TECHNIQUE: 2D digital imaging was performed. COMPARISON: CR,XR XR PORTABLE CHEST AP from 11/02/2023 FINDINGS: Exam extremely limited due to under penetration. Multiple monitoring leads overlie the chest. LUNGS: Increased bilateral diffuse pulmonary opacities, worsening when compared with the previous exa m. Findings may represent worsening pulmonary edema. Superimposed infection not excluded. No pleur al abnormality seen. HEART: Normal size. AORTA: Normal diameter. BONES: Unremarkable for age. Soft tissues: Unremarkable. IMPRESSION: Interval worsening of CHF DATA REPOSITORY: RADIATION DOSE DELIVERED:
[2023-11-03 00:03] LABS: Troponin I 2319 ng/L (< or =60)
[2023-11-03 00:40] LABS: Iron 20 ug/dL (50-170)
[2023-11-03 01:07] LABS: Ferritin 12 ng/mL (8-252); Folate 13.4 ng/mL (8.6-20.0); Vitamin B12 471 pg/mL (193-986)
[2023-11-03] MEDS: cefTRIAXone 1 GM/50 ML BAG IVPB (01:37)
--- NOTE | 2023-11-03 04:12 | NUR.NOTE ---
PT remains very confused . no signs or symptoms of chest,jaw,arm pain no SOB pt had no complaints of dizzyness. VSS as documented second unit of blood completed with no difficulties. Nursing Note:
[2023-11-03 05:20] LABS: HCT 28.9 % (36.0-46.0); MCH 22.8 pg (27.0-33.0); Platelet Count 210 10^3/uL (130-400); RBC 3.81 10^6/uL (3.93-5.22); RDW 21.5 % (11.7-14.6); RDW-SD 58.7 fL; WBC 7.71 10^3/uL (4.4-10.8)
[2023-11-03 05:22] LABS: HGB 8.7 g/dL (11.2-15.7); MCHC 30.1 % (32.0-36.0); MCV 76 fL (80-95)
[2023-11-03 05:37] LABS: Prothrombin Time 39.1 sec (9.1-11.1)
[2023-11-03 05:39] LABS: INR 4.4 (0.9-1.1)
[2023-11-03] MEDS: DOXYCYCLINE 100 MG in Normal Saline 100 ML IVPB ×2 (05:42→15:49)
[2023-11-03 05:52] LABS: ALT 13 U/L (14-59); AST 42 U/L (15-37); Albumin 2.9 g/dL (3.4-5.0); Alkaline Phosphatase 88 U/L (46-116); Anion Gap 19.6 mmol/L (3-11); BUN 17 mg/dL (7-18); Bilirubin, Total 0.4 mg/dL (0.2-1.0); CO2 18.4 mmol/L (21.0-32.0); CREATININE 0.8 mg/dL (0.55-1.02); Calcium 7.7 mg/dL (8.5-10.1); Chloride 106 mmol/L (98-107); Glucose 95 mg/dL (74-106); Magnesium 2.4 mg/dL (1.8-2.4); Sodium 144 mmol/L (136-145); Total Protein 6.3 g/dL (6.4-8.2)
[2023-11-03 05:57] LABS: Potassium 2.8 mmol/L (3.5-5.1)
[2023-11-03 05:58] LABS: Troponin I 3634 ng/L (< or =60)
[2023-11-03 05:59] LABS: TSH (W/Ref FT4) 0.24 uIU/mL (0.36-3.74)
[2023-11-03 06:15] LABS: FREE T4 0.72 ng/dL (0.76-1.46)
[2023-11-03] MEDS: Normal Saline 1,000 ML 100 ML IV (07:38)
[2023-11-03] MEDS: POTASSIUM CHLORIDE 10 MEQ/100 ML BAG 100 MEQ IVPB ×2 (07:39→08:36)
--- NOTE | 2023-11-03 07:45 | RT.EKG_ITS ---
APPROVED REPORT Exam: Resting ECG Reason for Exam: NSTEMI Patient Location: I HR:94 bpm ECG Measurements Heart Rate 94 AXIS TX 202 P 77 QRSd 97 QRS 69 QT 375 T 67 QTc 469 Conclusion Sinus rhythm...normal P axis, V-rate 50- 99 Low voltage, extremity leads...all extremity leads <0.5mV Borderline ST depression, anterolateral leads...ST <-0.07mV, I aVL V2-V6 Baseline wander in lead(s) V2 I have reviewed and interpreted ECG and agree with software generated interpretation.
[2023-11-03] MEDS: Pantoprazole 40 MG VIAL IVP (08:36)
[2023-11-03] MEDS: Normal Saline Flush 10 ML SYR IVP ×2 (08:37→09:42)
[2023-11-03 09:03] LABS: Lactate 0.7 mmol/L (0.6-1.4)
[2023-11-03 09:05] LABS: HCT 27.1 % (36.0-46.0); HGB 8.1 g/dL (11.2-15.7)
[2023-11-03 09:15] LABS: Anion Gap 18.1 mmol/L (3-11); BUN 18 mg/dL (7-18); CO2 17.9 mmol/L (21.0-32.0); CREATININE 0.8 mg/dL (0.55-1.02); Calcium 7.6 mg/dL (8.5-10.1); Chloride 108 mmol/L (98-107); Glucose 83 mg/dL (74-106); Sodium 144 mmol/L (136-145)
[2023-11-03 09:25] LABS: Troponin I 4025 ng/L (< or =60)
[2023-11-03] MEDS: Furosemide 20 MG/2 ML VIAL IVP (09:41)
[2023-11-03] MEDS: Nicotine 14 MG/24 HR PATCH TD (09:42)
[2023-11-03 09:57] LABS: Bilirubin Small (Negative); Blood Large (Negative); Clarity Clear (Clear); Glucose Negative (Negative); Ketones >=160 mg/dL (Negative); Leukocyte Esterase Negative (Negative); Nitrite Negative (Negative); Urobilinogen 0.2 mg/dL (Up to 0.2)
[2023-11-03 10:03] LABS: *AMPHETAMINES SCREEN URINE Negative (Negative); *BARBITURATES SCREEN URINE Negative (Negative); *BENZODIAZEPINES SCREEN URINE Negative (Negative); Cannabinoids THC Negative (Negative); Cocaine Screen,Urine Negative (Negative); METHADONE URINE SCREEN Negative (Negative); OPIATES URINE SCREEN Negative (Negative)
[2023-11-03 10:05] LABS: Bacteria Negative HPF (Negative); C & S Indicated? No; Casts Negative LPF (Negative); Crystals Negative HPF (Negative); Epithelial Cells Moderate HPF (Negative); Mucus Negative (Negative); RBC >50 HPF (0-2)
[2023-11-03 10:06] LABS: Tricyclic Antidepressants Negative (Negative)
--- NOTE | 2023-11-03 10:11 | INITIAL_ITS ---
Date of service: 11/03/23 Time of Service: 10:13 Care Management Initial Assmt Initial Assessment REASON FOR HOSPITALIZATION:: NSTEMI, acute on chronic anemia PREVIOUS FUNCTIONAL STATUS/SOCIAL/FAMILY SUPPORTS:: Stephanie lives in [facility] with her son, Luis, who is her primary caregiver and is with her 24/7. Per report, she has been wheelchair bound for about ten years, but she is able to stand pivot transfer with the support of her son. Stephanie relies on a friend for transportation, who is able to also transport Luis, as she needs his support for transfers. She is dependent on her son for care. CURRENT FUNCTIONAL STATUS:: Stephanie was sleeping when CM met with her; CM did not wake her. She has been accepted in transfer to [facility] due to an NSTEMI and salicylate poisoning, as well as acute anemia and encephalopathy. Per her son, she is not confused at baseline. She will likely be transferred by EMS, coordinated by the nursing cloth mercerizing supervisor, once a bed becomes available. CM will continue to follow. ADVANCE DIRECTIVES:: Not on file. Has patient been provided with info about the portal/API?: Yes Did the patient sign up for the portal?: No CODE STATUS:: Full Code INSURANCE COVERAGE / FINANCIAL ISSUES:: [facility]. JENN[facility]. CURRENT HOME/COMMUNITY SERVICES/EQUIPMENT:: Wheelchair, commode. Son is 24/7 caregiver. PRIMARY CARE PHYSICIAN:: Leonila Rich POTENTIAL DISCHARGE NEEDS:: Transfer to tertiary facility; accepted, waiting for bed availability. PATIENT/FAMILY EDUCATION NEEDS:: Review discharge instructions and limitations, discussion of self care needs including ask me three. ANTICIPATED BARRIERS TO DISCHARGE:: None identified. TRANSPORTATION:: Via EMS, acute transfer. PLAN:: Per report, Stephanie has been accepted at [facility] for acute transfer, pending bed availability. Her and her son both agreed to this plan while in the ED. She will transport via EMS once a bed becomes available. CM will continue to follow. PFSH All Active Problems (Updated 11/03/23 @ 14:08 by Kendal Guerin MD) Salicylate poisoning (Acute) Tobacco abuse (Chronic) Hypoalbuminemia (Acute) Right lower lobe pneumonia (Acute) Tracheal stenosis (Acute) Multinodular goiter (Acute) Atherosclerosis of aorta (Chronic) Rhabdomyolysis (Acute) Metabolic acidosis, increased anion gap (Acute) Pulmonary edema (Acute) Encephalopathy acute (Acute) Hypokalemia (Acute) Coagulopathy (Acute) Iron deficiency (Chronic) Acute anemia (Acute) Pneumonia (Acute) Hypoprothrombinemia (Acute) Acute on chronic anemia (Acute) NSTEMI (non-ST elevated myocardial infarction) (Acute) Fracture of fibula, distal, right, closed (Acute ~07/09/23) Depression (Acute 05/31/15) Spinal stenosis, unspecified region other than cervical (Chronic 10/26/11) Smoker unmotivated to quit (Acute 05/31/15) Pure hypercholesterolemia (Acute 02/27/17) Iron deficiency anemia due to chronic blood loss (Chronic 03/16/14) due to NSAID, ASA, ? lesion Insomnia (Acute 02/27/17) Essential hypertension (Acute 01/26/13) Diabetes mellitus (Chronic 01/26/13) Radicular pain of right lower extremity (Acute) Chronic low back pain with right-sided sciatica (Acute) Medical History Continuous opioid dependence (10/21/13) Chronic GI bleeding (07/18/15) Surgical History Abdominal hysterectomy Cholecystectomy Family History Father Myocardial infarction Grandfather Essential hypertension Social History Smoking/Tobacco Use Status: Current every day Tobacco Type: cigarettes Quit status: not considering quitting Smoking risk assessment performed?: Yes Alcohol Intake: former Details: alcholic quit 1977 Drug use: Never Substance use type: does not use Adopted: No Caregiver/Support person: Yes Foster care: No Household members: other Details: self and son Housing: apartment Number of Children: 1 number of grandchildren: 0 Communication Needs: None 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, 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, 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 Pets and animals: Yes Pets and animals: cat(s) What is your relationship status?: How often do you talk on the phone with friends or family?: three or more times per week Panel score (0-1 are the most socially isolated patients): 1 What type of physical activity do you participate in: none Drive intox or ride w/intox train driver: No Water heater temp set <120 deg: Yes Working smoke detector in home: Yes Fire extinguisher in home: Yes Carbon monox detector in home: Yes Do you feel safe at home: Yes Do you feel safe in your relationship?: Yes SDOH(Care Management) Screening Will the Patient Participate in the Screening?: Declined to provide In the past 12 months, have you had to go without electric, gas, oil or water in your home?: choose not to answer Have you or anyone in your house had to go without enough food to eat?: choose not to answer Has lack of transportation kept you from medical appointments or from doing things needed for daily living?: choose not to answer Has anyone in your support network made you feel unsafe for any reason?: choose not to answer Health Related Social Needs Health related social needs details: The patient lives with her son who has no transportation
--- NOTE | 2023-11-03 10:34 | DI.VRAD_ITS ---
PROCEDURE INFORMATION: Exam: XR Chest Exam date and time: 11/03/2023 10:28 AM Age: 78 years old Clinical indication: Other: ? Chf TECHNIQUE: Imaging protocol: Radiologic exam of the chest. Views: 1 view. COMPARISON: CR XR PORTABLE CHEST AP 11/02/2023 7:45 PM FINDINGS: Lungs: There is increased generalized diffuse haziness with interstitial prominence and blurring, most compatible with edema. No airspace consolidation. Pleural spaces: Unremarkable. No pleural effusion. No pneumothorax. Heart/Mediastinum: The cardiomediastinal silhouette is fairly stable in appearance. Bones/joints: Degenerative changes involve the spine and shoulders. IMPRESSION: Increased pulmonary edema as compared with 1 day prior. Dictated and Authenticated by: Fitz Luna MD. Ordering:JOHN Edmonds MD
--- NOTE | 2023-11-03 10:38 | DI.VRAD_ITS ---
PROCEDURE INFORMATION: Exam: CT Head Without Contrast Exam date and time: 11/03/2023 10:17 AM Age: 78 years old Clinical indication: Other: Worsening mental status changes TECHNIQUE: Imaging protocol: Computed tomography of the head without contrast. Radiation optimization: All CT scans at this facility use at least one of these dose optimization techniques: automated exposure control; mA and/or kV adjustment per patient size (includes targeted exams where dose is matched to clinical indication); or iterative reconstruction. COMPARISON: CT HEAD WO 11/02/2023 9:29 PM FINDINGS: Brain: Lucencies in the white matter, most suggestive of chronic microvascular ischemic disease, do not appear significantly changed. There is again a left basal ganglia lacunar infarct. There is no evidence for large acute cortical infarct. No intracranial hemorrhage or extraaxial collection is identified. There is no significant intracranial mass effect. Cerebral ventricles: The ventricles and sulci are stable in configuration, with similar atrophy. Paranasal sinuses: Visualized sinuses are unremarkable. No fluid levels. Mastoid air cells: Visualized mastoid air cells are well aerated. Bones/joints: Unremarkable. No acute fracture. Soft tissues: Unremarkable. Vasculature: Intracranial atherosclerotic vascular calcifications are again present. IMPRESSION: No CT evidence for acute intracranial abnormality or significant change since 1 day prior. Dictated and Authenticated by: Fitz Luna MD. Ordering:JOHN Edmonds MD
[2023-11-03 11:02] LABS: Lactate 0.7 mmol/L (0.6-1.4)
[2023-11-03 11:03] LABS: Abs Immature Grans 0.04 10^3/uL (0.0-0.06); Absolute Basophil Count 0.05 10^3/uL (0.0-0.2); Absolute Eosinophil Count 0.03 10^3/uL (0.0-0.7); Absolute Lymphocyte Count 0.45 10^3/uL (1.2-3.4); Absolute Monocyte Count 0.52 10^3/uL (0.1-0.8); Absolute Neutrophil Count 8.14 10^3/uL (1.2-6.7); Basophils % 0.5; Eosinophils % 0.3; HCT 27.5 % (36.0-46.0); HGB 8.3 g/dL (11.2-15.7); Immature Grans % 0.4; Lymphocytes % 4.9; MCH 22.7 pg (27.0-33.0); MCHC 30.2 % (32.0-36.0); MCV 75 fL (80-95); MPV 10.1 fL (8.0-11.0); Monocytes % 5.6; Neutrophils % 88.3; Platelet Count 209 10^3/uL (130-400); RBC 3.65 10^6/uL (3.93-5.22); RDW-SD 57.1 fL; WBC 9.23 10^3/uL (4.4-10.8)
[2023-11-03 11:08] LABS: RDW 21.1 % (11.7-14.6)
[2023-11-03 11:14] LABS: Ammonia 14 umol/L (11-32)
[2023-11-03 11:15] LABS: PTT Activated 38.5 sec (23.6-32.8)
[2023-11-03 11:17] LABS: LDH 317 U/L (81-234)
[2023-11-03 11:29] LABS: Anion Gap 18.9 mmol/L (3-11); BUN 17 mg/dL (7-18); CO2 17.1 mmol/L (21.0-32.0); CREATININE 0.9 mg/dL (0.55-1.02); Calcium 7.7 mg/dL (8.5-10.1); Chloride 107 mmol/L (98-107); Creatine Kinase 1720 U/L (26-192); Estimated GFR 65.03 (mL/min/1.73m2); Glucose 82 mg/dL (74-106); Sodium 143 mmol/L (136-145)
[2023-11-03 11:30] LABS: Troponin I 4129 ng/L (< or =60)
[2023-11-03 11:31] LABS: Potassium 2.9 mmol/L (3.5-5.1)
[2023-11-03 12:23] LABS: Lab Add On Test COMPLETED
[2023-11-03 12:27] LABS: Reticulocyte 1.3 % (0.5-2.4)
[2023-11-03 12:35] LABS: Acetaminophen < 2 ug/mL (10-30)
[2023-11-03 12:52] LABS: Lab Add On Test DONE
[2023-11-03] MEDS: POTASSIUM CHLORIDE 20 MEQ/100 ML BAG 50 MEQ IVPB ×5 (12:54→21:09)
[2023-11-03] MEDS: Bisacodyl 10 MG SUPP PR (12:55)
[2023-11-03] MEDS: Normal Saline 500 ML IV (12:55)
[2023-11-03 12:56] LABS: Fibrinogen (Stat) (Littleton) 444 mg/dL (208-434)
--- NOTE | 2023-11-03 13:20 | DSE_ITS ---
Date of service: 11/03/23 Time of Service: 13:20 DS: Diagnosis Discharge Diagnosis (1) Salicylate poisoning: Status: Acute Asessment and Plan: Salicylate level 60.3 mg/dL. Has evidence of high anion gap metabolic acidosis, on Bicarbonate drip, with evidence of encephalopathy, pulmonary edema, suspected unwitnessed seizure, hypokalemia. Being transferred [place] [facility] with nephrology being consulted for emergent hemodialysis. On chronic asa therapy at home; however, I cannot rule out suicide attempt with history of depression. (2) NSTEMI (non-ST elevated myocardial infarction): Status: Acute Asessment and Plan: In setting of anemia, acute pulmonary edema, salicylate poisoning. Unable to use dual antiplatelet therapy due to coagulopathy or anemia. Briefly on nitroglycerin gtt, but no reports of chest pain - nitroglycerin gtt has been discontinued. Troponin I 2004->2026->2319->3634 -> 4025 -> [address] depressions. (3) Acute anemia: Status: Acute Asessment and Plan: hemoccult negative on this admission, c/w iron deficiency, s/p 2 units pRBCs. Chronic GI bleeding is listed in past medical history, but no records are available for review. (4) Encephalopathy acute: Status: Acute Asessment and Plan: acute mental status change while in the ED; no known recent trauma; CT head negative x 2; ammonia wnl, VBG w/ pCO2 of 37 and pH of 7.33, UA negative. Salicylate toxicity is the most likely etiology. Does have rhabdomyolysis - ?post-ictal state (no witnessed seizure events). ?Meningitis (much less likely) - on empiric coverage with antibiotics (vancomycin, ampicillin, ceftriaxone). (5) Coagulopathy: Status: Acute Asessment and Plan: Most likely due to salicylate toxicity. INR 4.8->4.4 without Vitamin K or FFP administration. No known hx of cirrhosis and no evidence of cirrhosis by CT. Fibrinogen 444. T. bili 0.4. LDH 317 Acetaminophen level undetectable. Tick panel pending (6) Right lower lobe pneumonia: Status: Acute Asessment and Plan: RLL infiltrate on CXR. Procalcitonin negative. Influenza/COVID-19/RSV PCR negative. No witnessed aspiration events, but needs to be considered. Not requiring oxygen. On doxycycline/ceftriaxone empirically (also, on empiric vancomycin + ampicillin for the possibility of meningitis). (7) Rhabdomyolysis: Status: Acute Asessment and Plan: CPK 1720. Suspect unwitnessed seizure in setting of salicylate toxicity. Bicarbonate drip is being administered concurrently with diuresis. (8) Pulmonary edema: Status: Acute Asessment and Plan: In setting of salicylate toxicity, NSTEMI. Diuresing. Needs hemodialysis. No baseline NT-proBNP; it is 6655 pg/mL on this admission. (9) Metabolic acidosis, increased anion gap: Status: Acute Asessment and Plan: In setting of salicilate toxicity, rhabdomyolysis, fluid expansion. On bicarb gtt, needs hemodialysis. (10) Iron deficiency: Status: Chronic (11) Hypokalemia: Status: Acute Asessment and Plan: In setting of salicylate toxicity, being replenished aggressively. (12) Lactic acidosis: Status: Resolved (13) Hypothyroidism: Status: Suspected Asessment and Plan: TSH 0.24, FT 4 0.72 (only boderline low). TSH was previously 0.09 in 06/23/2017. Multinodular goiter seen on CT chest/abdomen/pelvis - with evidence of moderate airway narrowing. Consider endocrinology and ENT consults/referrals. 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 Discharge Plan Disposition Patient Disposition: Transfer-Acute Inpatient Care Specific Acute Inpt Facility: [facility] Condition: Serious Discharge Details Reason For Visit: NSTEMI, Acute on chronic anemia,... Admit Date/Time: 11/02/23 23:02 Admit Provider: Jesse Spence Attending Provider: Jesse Spence Primary Care Provider: Leonila Rich Hospital Course Hospital Course: Ms Alegria is a 78 year old female with PMHx of diet-controlled DM2, h/o chronic GI bleeding and iron deficiency per chart but with no procedure records available for review, chronic back pain on NSAIDs, tobacco abuse, who presented to [facility] ED on 11/02/23 with report of an acute onset of shortness of breath. There were no reports of bleeding at home. The patient did have a history of drinking, but stopped in the 1970s. She does not have a history of cirrhosis. On arrival to the ED, her oxygen saturations on RA were in the 90s. She was afebrile, SBP in the ED was 125/45, HR 100. Her workup revealed anemia with Hgb of 6.2/23.1, elevated troponin I of 2005. Her initial bicarb of 19.6, Anio gap of 16.4, Cr 0.8. Her INR was 4.8. Her EKG showed lateral ST segment depressions. She was transfused 2 units of pRBCs. While in the ED, she became acutely altered. CT head was negative. CT chest/abdomen/pelvis showed a RLL infiltrate, moderate tracheal narrowing due to a multinodular goiter, and no PE. She does have evidence of severe aortic atherosclerosis without evidence of aneurysm. There was no apparent reason for her coagulopathy. She was not given Vitamin K or FFP. The patient was accepted in transfer to [facility] cardiology under the care of Dr. Hein pending bed availability for an evaluation for a cardiac catheterization. Meanwhile, she stayed at our facility and was accepted to the hospitalist service in our ICU. Due to her anemia and coagulopathy, she did not receive aspirin, plavix, or heparinization. The troponins have gone up as high as 4129 prior to turning around (the last one is 3783). While initially she was written for IVF, this was discontinued when the patient started to show signs of pulmonary edema clinically, at which point diuresis was begun. Her nt-proBNP was elevated at 6655 pg/mL (no prior for comparison). She had a BM, which was hemoccult negative, and no active bleeding has happened since her admission. However, her mental status has been progressively declining. Initially, confused and agitated, she is now lethargic, though still arousable. She is slurring words, but otherwise has a nonfocal physical exam. She had a normal ammonia level. CT head was repeated and remains negative. The patient was started on empiric coverage for meningitis with antibioitics, as it is unsafe to perform an LP at this time with her coagulopathy. At this point, both hematology and neurology consultations were requested at [facility] while the accepting cardiology service was updated. At the time, hematology was concerned for DIC with fibrinogen level pending. This came back at 444. However, we now have an alternative explanation for the patient's elevated INR, her encephalopathy, her pulmonary edema. The patient's salicylate level came back at 60.3 mg/dL c/w severe salicylate toxicity. She was written for D50, bicarbonate boluses x 2, then infusion concurrently with diuresis, and I have reached out to [facility] nephrology to notify them of the patient's need for emergent dialysis. I am awaiting call back from them at this time. The patient does also have evidence of elevated CPK c/w rhabdomyolysis. Her CPK is 1720. At this point, I highly suspect an unwitnessed seizure. I am awaiting call back from neurology and nephrology to discuss need for prophylactic antiepileptics. Once her blood cultures return, if they are negative, her antibiotics can likely be simplified to be taylored to cover for aspiration pneumonia only. Currently she is on doxycycyline + ceftriaxone for pneumonia and vancomycin + ceftriaxone + ampicillin for now less suspected meningitis. Total Critical Care Time for this patient tody as well as time spent on completion of documentation and coordination of transfer to [facility] along with consultations is 200 minutes. Home Meds and New Rx's Prescriptions: No Action celecoxib [Celebrex] 200 mg capsule 200 mg PO DAILY Qty: 90 1RF (DME) manual wheelchair See Rx Instructions .Route .MEDSUPPLY Qty: 1 0RF Rx Instructions: As directed Back and Body Pain Reliever 500-32.5 mg tablet 1 tab PO .Q6HR Patient Comments: Pt took 2 tablets today at 1300 per pt's son. Dell Lewis Severe Cold-Flu 6.25-5-10-325 mg/15 mL liquid 15 ml PO QHS Discharge Instructions Activity:: bedrest Equipment/Supplies:: No Equipment Needed Diet:: NPO Discharge Orders Discharge Orders: Discharge Order (Routine); Ordered 11/03/23 Ordered By: Kendal Guerin DS: Summary Time Spent with Patient providing and/or coordinating discharge services: Greater than 30 minutes Status at Discharge Functional status at discharge: bed bound Overall status at discharge: patient is not back to baseline Mental Status: other (lethargic) Speech and Movement: slurred speech Mood: other (lethargic) Affect: other Quality:SDOH Health Related Social Needs: Health related social needs details The patient lives with her son who has no transportation Health related social needs details: The patient lives with her son who has no transportation Exam Narrative Exam Narrative: General: Elderly female, lethargic, arousable to repetitive loud verbal and painful stimuli, A&Ox1, dysarthric, no other focal deficits HEENT: EOMI, MMM Heart: RRR, no m/r/g Lungs: scattered rhonchi and rales B Abdomen: soft, nontender, nondistended Extremities: no edema BLEs Psych Mental Status: other (lethargic) Speech and Movement: slurred speech Mood: other (lethargic) Affect: other DS: Data Vitals/I&O Vitals and I&O: Vital Signs Temperature 37.2 C 11/03/23 11:56 Temperature Source Temporal Artery Scan 11/03/23 11:56 Pulse 90 11/03/23 10:37 Pulse 92 H 11/03/23 10:37 Respiratory Rate 15 11/03/23 10:37 Respiratory Effort Non-Labored 11/03/23 08:30 Respiratory Depth Shallow 11/03/23 08:30 Respiratory Pattern Normal 11/03/23 08:30 Blood Pressure 106/48 L 11/03/23 10:37 Blood Pressure Mean 66 11/03/23 10:37 Blood Pressure Position Supine 11/03/23 08:30 Pulse Oximetry 93 11/03/23 10:37 Oxygen Delivery Method Room Air 11/03/23 08:30 Oxygen Flow Rate 0 11/03/23 08:30 Pain Level 10 11/02/23 19:10 Comment Pt c/o chronic back pain 11/02/23 19:10 Intake & Output 11/02/23 11/03/23 11/03/23 23:59 11:59 23:59 Intake Total 1632.45 / 1632.45 Output Total 1105 / 1330 225 / 1330 Balance 527.45 / 302.45 -225 / 302.45 Weight 63.503 kg 59 kg Intake: IV 385.45 / 385.45 Blood Product 1100 / 1100 Rbc Leuko Reduced Unit 750 / 750 [id number] Rbc Leuko Reduced Unit 350 / 350 [id number] Other 147 / 147 Rbc Leuko Reduced Unit 147 / 147 [id number] Output: Urine 1105 / 1330 225 / 1330 Other: Urine Color Light Betys Straw Straw Urine Appearance Clear Clear Clear Comment Arnett intact and draining clear light betsy urine. Stool Occult Blood Negative Stool Size Smear Stool Characteristics Hard Data Completed and Pending Completed studies during hospitalization [Text1]: CXR 11/02/23: Findings consistent with moderate CHF. CT head 11/02/23: No acute intracranial process. CTA chest/abdomen/pelvis 11/02/23: 1. Exam limited by motion. No evidence of pulmonary embolism or aortic dissection. Severe atherosclerotic changes of the aorta without evidence of aneurysm. 2. Posterior right lower lobe infiltrate. No acute abdominal or pelvic process. CT head 11/03/23: No CT evidence for acute intracranial abnormality or significant change since 1 day prior. CXR 11/03/23: Increased pulmonary edema as compared with 1 day prior. Labs on day of discharge: Labs from last 24 hours 11/03/23 11/03/23 11/03/23 Unknown 12:22 10:53 WBC RBC Hgb Hct MCV MCH MCHC RDW Plt Count MPV Reticulocyte % (Auto) Immature Gran % Neutrophils % Lymphocytes % Monocytes % Eosinophils % Basophils % Nucleated RBC % Absolute Neutrophils Absolute Lymphocytes Absolute Monocytes Absolute Eosinophils Absolute Basophils RBC Morphology Hypochromasia Anisocytosis Microcytosis Ovalocytes Haptoglobin PT INR APTT 38.5 H Fibrinogen D-Dimer VBG pH VBG pCO2 VBG pO2 VBG HCO3 VBG Total CO2 VBG O2 Saturation VBG Base Excess VBG Lactate 0.7 Sodium 143 Potassium 2.9 L* Chloride 107 Carbon Dioxide 17.1 L Anion Gap 18.9 H BUN 17 Creatinine 0.9 Est GFR (CKD-EPI 2020) 65.03 Glucose 82 Calcium 7.7 L Magnesium Iron Ferritin Total Bilirubin AST ALT Alkaline Phosphatase Ammonia 14 Lactate Dehydrogenase Creatine Kinase 1720 H Troponin I 4129 H* NT-Pro-B Natriuret Pep Total Protein Albumin Vitamin B12 Vitamin K1 Folate Procalcitonin TSH Free T4 Urine Color Urine Clarity Urine pH Ur Specific [place] Urine Protein Urine Ketones Urine Blood Urine Nitrite Urine Bilirubin Urine Urobilinogen Ur Leukocyte Esterase Urine RBC Urine WBC Ur Epithelial Cells Urine Crystals Urine Bacteria Urine Casts Urine Mucus Ur Culture Indicated? Urine Glucose Urine Opiates Screen Urine Methadone Screen Acetaminophen < 2 Ur Barbiturates Screen Ur Tricyclics Screen Ur Amphetamines Screen U Benzodiazepines Scrn Urine Cocaine Screen Ur THC Screen B. divergens/MO-1 PCR Babesia duncani (PCR) Babesia microti DNA PCR Lyme Disease Antibody COVID-19 Source SARS-CoV-2 (PCR) E.chaffeensis DNA (PCR) E.ewingii/canis DNA PCR E.muris eauclairensis (PCR) Influenza Type A (PCR) Influenza Type B (PCR) RSV (PCR) A. phagocytophilum (PCR) Blood B. miyamotoi (PCR) Add-On Test Request Cancelled COMPLETED Patient ABO/Rh Antibody Screen Crossmatch 11/03/23 11/03/23 11/03/23 10:44 09:36 08:57 WBC 9.23 RBC 3.65 L Hgb 8.3 L 8.1 L Hct 27.5 L 27.1 L MCV 75 L MCH 22.7 L MCHC 30.2 L RDW 21.1 H Plt Count 209 MPV 10.1 Reticulocyte % (Auto) 1.3 Immature Gran % 0.4 Neutrophils % 88.3 Lymphocytes % 4.9 Monocytes % 5.6 Eosinophils % 0.3 Basophils % 0.5 Nucleated RBC % 0.0 Absolute Neutrophils 8.14 H Absolute Lymphocytes 0.45 L Absolute Monocytes 0.52 Absolute Eosinophils 0.03 Absolute Basophils 0.05 RBC Morphology Hypochromasia Anisocytosis Microcytosis Ovalocytes Haptoglobin Pending PT INR APTT Fibrinogen 444 H D-Dimer VBG pH VBG pCO2 VBG pO2 VBG HCO3 VBG Total CO2 VBG O2 Saturation VBG Base Excess VBG Lactate 0.7 Sodium 144 Potassium 3.0 L Chloride 108 H Carbon Dioxide 17.9 L Anion Gap 18.1 H BUN 18 Creatinine 0.8 Est GFR (CKD-EPI 2020) 74.90 Glucose 83 Calcium 7.6 L Magnesium Iron Ferritin Total Bilirubin AST ALT Alkaline Phosphatase Ammonia Lactate Dehydrogenase 317 H Creatine Kinase Troponin I 4025 H* NT-Pro-B Natriuret Pep Total Protein Albumin Vitamin B12 Vitamin K1 Folate Procalcitonin TSH Free T4 Urine Color Yellow Urine Clarity Clear Urine pH 5.0 Ur Specific [place] 1.020 Urine Protein 30 H Urine Ketones >=160 H Urine Blood Large H Urine Nitrite Negative Urine Bilirubin Small H Urine Urobilinogen 0.2 Ur Leukocyte Esterase Negative Urine RBC >50 H Urine WBC 3-5 Ur Epithelial Cells Moderate Urine Crystals Negative Urine Bacteria Negative Urine Casts Negative Urine Mucus Negative Ur Culture Indicated? No Urine Glucose Negative Urine Opiates Screen Negative Urine Methadone Screen Negative Acetaminophen Ur Barbiturates Screen Negative Ur Tricyclics Screen Negative Ur Amphetamines Screen Negative U Benzodiazepines Scrn Negative Urine Cocaine Screen Negative Ur THC Screen Negative B. divergens/MO-1 PCR Pending Babesia duncani (PCR) Pending Babesia microti DNA PCR Pending Lyme Disease Antibody Pending COVID-19 Source SARS-CoV-2 (PCR) E.chaffeensis DNA (PCR) Pending E.ewingii/canis DNA PCR Pending E.muris eauclairensis (PCR) Pending Influenza Type A (PCR) Influenza Type B (PCR) RSV (PCR) A. phagocytophilum (PCR) Pending Blood B. miyamotoi (PCR) Pending Add-On Test Request DONE Patient ABO/Rh Antibody Screen Crossmatch 11/03/23 11/03/23 11/03/23 04:50 04:50 04:50 WBC RBC Hgb Hct MCV MCH MCHC RDW 21.5 H Plt Count 210 Cancelled MPV 10.0 Cancelled Reticulocyte % (Auto) Immature Gran % Neutrophils % Lymphocytes % Monocytes % Eosinophils % Basophils % Nucleated RBC % Absolute Neutrophils Absolute Lymphocytes Absolute Monocytes Absolute Eosinophils Absolute Basophils RBC Morphology Hypochromasia Anisocytosis Microcytosis Ovalocytes Haptoglobin PT 39.1 H INR 4.4 H* APTT Fibrinogen Cancelled D-Dimer VBG pH VBG pCO2 VBG pO2 VBG HCO3 VBG Total CO2 VBG O2 Saturation VBG Base Excess VBG Lactate Sodium 144 Potassium 2.8 L* Chloride 106 Carbon Dioxide 18.4 L Anion Gap 19.6 H BUN 17 Creatinine 0.8 Est GFR (CKD-EPI 2020) 74.90 Glucose 95 Calcium 7.7 L Magnesium 2.4 Iron Ferritin Total Bilirubin 0.4 AST 42 H ALT 13 L Alkaline Phosphatase 88 Ammonia Lactate Dehydrogenase Creatine Kinase Troponin I 3634 H* NT-Pro-B Natriuret Pep Total Protein 6.3 L Albumin 2.9 L Vitamin B12 Vitamin K1 Pending Folate Procalcitonin TSH 0.24 L Free T4 0.72 L Urine Color Urine Clarity Urine pH Ur Specific [place] Urine Protein Urine Ketones Urine Blood Urine Nitrite Urine Bilirubin Urine Urobilinogen Ur Leukocyte Esterase Urine RBC Urine WBC Ur Epithelial Cells Urine Crystals Urine Bacteria Urine Casts Urine Mucus Ur Culture Indicated? Urine Glucose Urine Opiates Screen Urine Methadone Screen Acetaminophen Ur Barbiturates Screen Ur Tricyclics Screen Ur Amphetamines Screen U Benzodiazepines Scrn Urine Cocaine Screen Ur THC Screen B. divergens/MO-1 PCR Babesia duncani (PCR) Babesia microti DNA PCR Lyme Disease Antibody COVID-19 Source SARS-CoV-2 (PCR) E.chaffeensis DNA (PCR) E.ewingii/canis DNA PCR E.muris eauclairensis (PCR) Influenza Type A (PCR) Influenza Type B (PCR) RSV (PCR) A. phagocytophilum (PCR) Blood B. miyamotoi (PCR) Add-On Test Request Patient ABO/Rh Antibody Screen Crossmatch 11/03/23 11/03/23 11/03/23 04:50 04:50 04:50 WBC RBC Hgb Hct MCV 76 L D MCH 22.8 L Cancelled MCHC 30.1 L D Cancelled RDW Cancelled Plt Count MPV Reticulocyte % (Auto) Immature Gran % Neutrophils % Lymphocytes % Monocytes % Eosinophils % Basophils % Nucleated RBC % Absolute Neutrophils Absolute Lymphocytes Absolute Monocytes Absolute Eosinophils Absolute Basophils RBC Morphology Hypochromasia Anisocytosis Microcytosis Ovalocytes Haptoglobin PT INR APTT Fibrinogen D-Dimer VBG pH VBG pCO2 VBG pO2 VBG HCO3 VBG Total CO2 VBG O2 Saturation VBG Base Excess VBG Lactate Sodium Potassium Chloride Carbon Dioxide Anion Gap BUN Creatinine Est GFR (CKD-EPI 2020) Glucose Calcium Magnesium Iron Ferritin Total Bilirubin AST ALT Alkaline Phosphatase Ammonia Lactate Dehydrogenase Creatine Kinase Troponin I NT-Pro-B Natriuret Pep Total Protein Albumin Vitamin B12 Vitamin K1 Folate Procalcitonin TSH Free T4 Urine Color Urine Clarity Urine pH Ur Specific [place] Urine Protein Urine Ketones Urine Blood Urine Nitrite Urine Bilirubin Urine Urobilinogen Ur Leukocyte Esterase Urine RBC Urine WBC Ur Epithelial Cells Urine Crystals Urine Bacteria Urine Casts Urine Mucus Ur Culture Indicated? Urine Glucose Urine Opiates Screen Urine Methadone Screen Acetaminophen Ur Barbiturates Screen Ur Tricyclics Screen Ur Amphetamines Screen U Benzodiazepines Scrn Urine Cocaine Screen Ur THC Screen B. divergens/MO- PCR Babesia duncani (PCR) Babesia microti DNA PCR Lyme Disease Antibody COVID-19 Source SARS-CoV-2 (PCR) E.chaffeensis DNA (PCR) E.ewingii/canis DNA PCR E.muris eauclairensis (PCR) Influenza Type A (PCR) Influenza Type B (PCR) RSV (PCR) A. phagocytophilum (PCR) Blood B. miyamotoi (PCR) Add-On Test Request Patient ABO/Rh Antibody Screen Crossmatch 11/03/23 11/03/23 11/03/23 04:50 04:50 04:50 WBC RBC 3.81 L Hgb 8.7 L D Cancelled Hct 28.9 L Cancelled MCV Cancelled MCH MCHC RDW Plt Count MPV Reticulocyte % (Auto) Immature Gran % Neutrophils % Lymphocytes % Monocytes % Eosinophils % Basophils % Nucleated RBC % Absolute Neutrophils Absolute Lymphocytes Absolute Monocytes Absolute Eosinophils Absolute Basophils RBC Morphology Hypochromasia Anisocytosis Microcytosis Ovalocytes Haptoglobin PT INR APTT Fibrinogen D-Dimer VBG pH VBG pCO2 VBG pO2 VBG HCO3 VBG Total CO2 VBG O2 Saturation VBG Base Excess VBG Lactate Sodium Potassium Chloride Carbon Dioxide Anion Gap BUN Creatinine Est GFR (CKD-EPI 2020) Glucose Calcium Magnesium Iron Ferritin Total Bilirubin AST ALT Alkaline Phosphatase Ammonia Lactate Dehydrogenase Creatine Kinase Troponin I NT-Pro-B Natriuret Pep Total Protein Albumin Vitamin B12 Vitamin K1 Folate Procalcitonin TSH Free T4 Urine Color Urine Clarity Urine pH Ur Specific [place] Urine Protein Urine Ketones Urine Blood Urine Nitrite Urine Bilirubin Urine Urobilinogen Ur Leukocyte Esterase Urine RBC Urine WBC Ur Epithelial Cells Urine Crystals Urine Bacteria Urine Casts Urine Mucus Ur Culture Indicated? Urine Glucose Urine Opiates Screen Urine Methadone Screen Acetaminophen Ur Barbiturates Screen Ur Tricyclics Screen Ur Amphetamines Screen U Benzodiazepines Scrn Urine Cocaine Screen Ur THC Screen B. divergens/MO-1 PCR Babesia duncani (PCR) Babesia microti DNA PCR Lyme Disease Antibody COVID-19 Source SARS-CoV-2 (PCR) E.chaffeensis DNA (PCR) E.ewingii/canis DNA PCR E.muris eauclairensis (PCR) Influenza Type A (PCR) Influenza Type B (PCR) RSV (PCR) A. phagocytophilum (PCR) Blood B. miyamotoi (PCR) Add-On Test Request Patient ABO/Rh Antibody Screen Crossmatch 11/03/23 11/03/23 11/02/23 04:50 04:50 23:27 WBC 7.71 Cancelled RBC Cancelled Hgb Hct MCV MCH MCHC RDW Plt Count MPV Reticulocyte % (Auto) Immature Gran % Neutrophils % Lymphocytes % Monocytes % Eosinophils % Basophils % Nucleated RBC % Absolute Neutrophils Absolute Lymphocytes Absolute Monocytes Absolute Eosinophils Absolute Basophils RBC Morphology Hypochromasia Anisocytosis Microcytosis Ovalocytes Haptoglobin PT INR APTT Fibrinogen D-Dimer VBG pH VBG pCO2 VBG pO2 VBG HCO3 VBG Total CO2 VBG O2 Saturation VBG Base Excess VBG Lactate Sodium Potassium Chloride Carbon Dioxide Anion Gap BUN Creatinine Est GFR (CKD-EPI 2020) Glucose Calcium Magnesium Iron Ferritin Total Bilirubin AST ALT Alkaline Phosphatase Ammonia Lactate Dehydrogenase Creatine Kinase Troponin I 2319 H* NT-Pro-B Natriuret Pep Total Protein Albumin Vitamin B12 Vitamin K1 Folate Procalcitonin TSH Free T4 Urine Color Urine Clarity Urine pH Ur Specific [place] Urine Protein Urine Ketones Urine Blood Urine Nitrite Urine Bilirubin Urine Urobilinogen Ur Leukocyte Esterase Urine RBC Urine WBC Ur Epithelial Cells Urine Crystals Urine Bacteria Urine Casts Urine Mucus Ur Culture Indicated? Urine Glucose Urine Opiates Screen Urine Methadone Screen Acetaminophen Ur Barbiturates Screen Ur Tricyclics Screen Ur Amphetamines Screen U Benzodiazepines Scrn Urine Cocaine Screen Ur THC Screen B. divergens/MO-1 PCR Babesia duncani (PCR) Babesia microti DNA PCR Lyme Disease Antibody COVID-19 Source SARS-CoV-2 (PCR) E.chaffeensis DNA (PCR) E.ewingii/canis DNA PCR E.muris eauclairensis (PCR) Influenza Type A (PCR) Influenza Type B (PCR) RSV (PCR) A. phagocytophilum (PCR) Blood B. miyamotoi (PCR) Add-On Test Request Patient ABO/Rh Antibody Screen Crossmatch 11/02/23 11/02/23 11/02/23 22:21 21:32 20:52 WBC RBC Hgb Hct MCV MCH MCHC RDW Plt Count MPV Reticulocyte % (Auto) Immature Gran % Neutrophils % Lymphocytes % Monocytes % Eosinophils % Basophils % Nucleated RBC % Absolute Neutrophils Absolute Lymphocytes Absolute Monocytes Absolute Eosinophils Absolute Basophils RBC Morphology Hypochromasia Anisocytosis Microcytosis Ovalocytes Haptoglobin PT Cancelled INR Cancelled APTT Fibrinogen D-Dimer VBG pH VBG pCO2 VBG pO2 VBG HCO3 VBG Total CO2 VBG O2 Saturation VBG Base Excess VBG Lactate Sodium Potassium Chloride Carbon Dioxide Anion Gap BUN Creatinine Est GFR (CKD-EPI 2020) Glucose Calcium Magnesium Iron Ferritin Total Bilirubin AST ALT Alkaline Phosphatase Ammonia Lactate Dehydrogenase Creatine Kinase Troponin I Cancelled 2026 H* NT-Pro-B Natriuret Pep Total Protein Albumin Vitamin B12 Vitamin K1 Folate Procalcitonin TSH Free T4 Urine Color Urine Clarity Urine pH Ur Specific [place] Urine Protein Urine Ketones Urine Blood Urine Nitrite Urine Bilirubin Urine Urobilinogen Ur Leukocyte Esterase Urine RBC Urine WBC Ur Epithelial Cells Urine Crystals Urine Bacteria Urine Casts Urine Mucus Ur Culture Indicated? Urine Glucose Urine Opiates Screen Urine Methadone Screen Acetaminophen Ur Barbiturates Screen Ur Tricyclics Screen Ur Amphetamines Screen U Benzodiazepines Scrn Urine Cocaine Screen Ur THC Screen B. divergens/MO-1 PCR Babesia duncani (PCR) Babesia microti DNA PCR Lyme Disease Antibody COVID-19 Source SARS-CoV-2 (PCR) E.chaffeensis DNA (PCR) E.ewingii/canis DNA PCR E.muris eauclairensis (PCR) Influenza Type A (PCR) Influenza Type B (PCR) RSV (PCR) A. phagocytophilum (PCR) Blood B. miyamotoi (PCR) Add-On Test Request Patient ABO/Rh Antibody Screen Crossmatch 11/02/23 11/02/23 11/02/23 19:44 19:30 19:17 WBC 5.68 RBC 3.20 L Hgb 6.2 L* Hct 23.1 L MCV 72 L MCH 19.4 L MCHC 26.8 L RDW 22.0 H Plt Count 264 MPV 10.6 Reticulocyte % (Auto) Immature Gran % 0.5 Neutrophils % 85.3 Lymphocytes % 8.1 Monocytes % 4.8 Eosinophils % 0.4 Basophils % 0.9 Nucleated RBC % 0.0 Absolute Neutrophils 4.85 Absolute Lymphocytes 0.46 L Absolute Monocytes 0.27 Absolute Eosinophils 0.02 Absolute Basophils 0.05 RBC Morphology See Below Hypochromasia 2+ Anisocytosis 2+ Microcytosis 3+ Ovalocytes Not Applicable Haptoglobin PT 42.4 H INR 4.8 H* APTT 31.6 Fibrinogen D-Dimer 928 H VBG pH 7.33 VBG pCO2 37 L VBG pO2 42 VBG HCO3 20 L VBG Total CO2 19 L VBG O2 Saturation 68 VBG Base Excess -7 L VBG Lactate 1.5 H Sodium 140 Potassium 3.6 Chloride 104 Carbon Dioxide 19.6 L Anion Gap 16.4 H BUN 18 Creatinine 0.8 Est GFR (CKD-EPI 2020) 74.90 Glucose 133 H Calcium 8.3 L Magnesium 2.5 H Iron 20 L Ferritin 12 Total Bilirubin 0.4 AST 30 ALT 13 L Alkaline Phosphatase 94 Ammonia Lactate Dehydrogenase Creatine Kinase Troponin I 2005 H* NT-Pro-B Natriuret Pep 6655 H Total Protein 7.0 Albumin 3.2 L Vitamin B12 471 Vitamin K1 Folate 13.4 Procalcitonin < 0.1 TSH Free T4 Urine Color Urine Clarity Urine pH Ur Specific [place] Urine Protein Urine Ketones Urine Blood Urine Nitrite Urine Bilirubin Urine Urobilinogen Ur Leukocyte Esterase Urine RBC Urine WBC Ur Epithelial Cells Urine Crystals Urine Bacteria Urine Casts Urine Mucus Ur Culture Indicated? Urine Glucose Urine Opiates Screen Urine Methadone Screen Acetaminophen Ur Barbiturates Screen Ur Tricyclics Screen Ur Amphetamines Screen U Benzodiazepines Scrn Urine Cocaine Screen Ur THC Screen B. divergens/MO-1 PCR Babesia duncani (PCR) Babesia microti DNA PCR Lyme Disease Antibody COVID-19 Source SARS-CoV-2 (PCR) E.chaffeensis DNA (PCR) E.ewingii/canis DNA PCR E.muris eauclairensis (PCR) Influenza Type A (PCR) Influenza Type B (PCR) RSV (PCR) A. phagocytophilum (PCR) Blood B. miyamotoi (PCR) Add-On Test Request Patient ABO/Rh O Positive Antibody Screen NEGATIVE Crossmatch See Detail 11/02/23 19:12 WBC RBC Hgb Hct MCV MCH MCHC RDW Plt Count MPV Reticulocyte % (Auto) Immature Gran % Neutrophils % Lymphocytes % Monocytes % Eosinophils % Basophils % Nucleated RBC % Absolute Neutrophils Absolute Lymphocytes Absolute Monocytes Absolute Eosinophils Absolute Basophils RBC Morphology Hypochromasia Anisocytosis Microcytosis Ovalocytes Haptoglobin PT INR APTT Fibrinogen D-Dimer VBG pH VBG pCO2 VBG pO2 VBG HCO3 VBG Total CO2 VBG O2 Saturation VBG Base Excess VBG Lactate Sodium Potassium Chloride Carbon Dioxide Anion Gap BUN Creatinine Est GFR (CKD-EPI 2020) Glucose Calcium Magnesium Iron Ferritin Total Bilirubin AST ALT Alkaline Phosphatase Ammonia Lactate Dehydrogenase Creatine Kinase Troponin I NT-Pro-B Natriuret Pep Total Protein Albumin Vitamin B12 Vitamin K1 Folate Procalcitonin TSH Free T4 Urine Color Urine Clarity Urine pH Ur Specific [place] Urine Protein Urine Ketones Urine Blood Urine Nitrite Urine Bilirubin Urine Urobilinogen Ur Leukocyte Esterase Urine RBC Urine WBC Ur Epithelial Cells Urine Crystals Urine Bacteria Urine Casts Urine Mucus Ur Culture Indicated? Urine Glucose Urine Opiates Screen Urine Methadone Screen Acetaminophen Ur Barbiturates Screen Ur Tricyclics Screen Ur Amphetamines Screen U Benzodiazepines Scrn Urine Cocaine Screen Ur THC Screen B. divergens/MO-1 PCR Babesia duncani (PCR) Babesia microti DNA PCR Lyme Disease Antibody COVID-19 Source Nasopharynx SARS-CoV-2 (PCR) Negative E.chaffeensis DNA (PCR) E.ewingii/canis DNA PCR E.muris eauclairensis (PCR) Influenza Type A (PCR) Negative Influenza Type B (PCR) Negative RSV (PCR) Negative A. phagocytophilum (PCR) Blood B. miyamotoi (PCR) Add-On Test Request Patient ABO/Rh Antibody Screen Crossmatch 11/03/23 10:53 Blood Blood Culture - Pending 11/03/23 10:44 Blood Blood Culture - Pending Preliminary micro results at discharge 11/03/23 10:53 Blood Culture - Pending Blood 11/03/23 10:44 Blood Culture - Pending Blood [facility] All Active Problems (Updated 11/03/23 @ 14:08 by Kendal Guerin MD) Salicylate poisoning (Acute) Tobacco abuse (Chronic) Hypoalbuminemia (Acute) Right lower lobe pneumonia (Acute) Tracheal stenosis (Acute) Multinodular goiter (Acute) Atherosclerosis of aorta (Chronic) Rhabdomyolysis (Acute) Metabolic acidosis, increased anion gap (Acute) Pulmonary edema (Acute) Encephalopathy acute (Acute) Hypokalemia (Acute) Coagulopathy (Acute) Iron deficiency (Chronic) Acute anemia (Acute) Pneumonia (Acute) Hypoprothrombinemia (Acute) Acute on chronic anemia (Acute) NSTEMI (non-ST elevated myocardial infarction) (Acute) Fracture of fibula, distal, right, closed (Acute ~07/09/23) Depression (Acute 05/31/15) Spinal stenosis, unspecified region other than cervical (Chronic 10/26/11) Smoker unmotivated to quit (Acute 05/31/15) Pure hypercholesterolemia (Acute 02/27/17) Iron deficiency anemia due to chronic blood loss (Chronic 03/16/14) due to NSAID, ASA, ? lesion Insomnia (Acute 02/27/17) Essential hypertension (Acute 01/26/13) Diabetes mellitus (Chronic 01/26/13) Radicular pain of right lower extremity (Acute) Chronic low back pain with right-sided sciatica (Acute) Medical History Continuous opioid dependence (10/21/13) Chronic GI bleeding (07/18/15) Surgical History Abdominal hysterectomy Cholecystectomy Family History Father Myocardial infarction Grandfather Essential hypertension Social History Smoking/Tobacco Use Status: Current every day Tobacco Type: cigarettes Quit status: not considering quitting Smoking risk assessment performed?: Yes Alcohol Intake: former Details: alcholic quit 1978 Drug use: Never Substance use type: does not use Adopted: No Caregiver/Support person: Yes Foster care: No Household members: other Details: self and son Housing: apartment Number of Children: 1 number of grandchildren: 0 Communication Needs: None 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, 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, 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 Pets and animals: Yes Pets and animals: cat(s) What is your relationship status?: How often do you talk on the phone with friends or family?: three or more times per week Panel score (0-1 are the most socially isolated patients): 1 What type of physical activity do you participate in: none Drive intox or ride w/intox jinriksha driver: No Water heater temp set <120 deg: Yes Working smoke detector in home: Yes Fire extinguisher in home: Yes Carbon monox detector in home: Yes Do you feel safe at home: Yes Do you feel safe in your relationship?: Yes Time Spent with Patient Time Spent with Patient: >85 minutes Time was spent: preparing to see the patient(eg.review tests), obtaining and/or reviewing separately otained hiistory, ordering medications,tests, procedures, referring, communicating with other health customer care manager, indepentently interpreting results, counseling the patient and care coordination
[2023-11-03] MEDS: cefTRIAXone 2 GM/50 ML BAG IVPB (13:34)
[2023-11-03 13:36] LABS: Lab Add On Test DONE
[2023-11-03 13:50] LABS: Salicylate 60.3 mg/dL (<2.8)
[2023-11-03 14:22] LABS: Troponin I 3783 ng/L (< or =60)
[2023-11-03] MEDS: Furosemide 40 MG/4 ML VIAL IVP (14:24)
[2023-11-03] MEDS: Sodium Bicarbonate 50 MEQ/50 ML SYR IVP ×2 (14:24)
[2023-11-03] MEDS: Dextrose 50%-Water 25 GM/50 ML SYR IVP (14:28)
[2023-11-03] MEDS: SODIUM BICARBONATE 150 MEQ in DEXTROSE 5%-WATER 850 ML 100 MEQ IV ×2 (14:29→15:25)
[2023-11-03 15:22] LABS: Salicylate 52.6 mg/dL (<2.8)
[2023-11-03] MEDS: AMPICILLIN SODIUM 2 GM in Normal Saline 100 ML IVPB (15:30)
[2023-11-03] MEDS: Lidocaine 5% Patch 1 PATCH TP (15:54)
[2023-11-03] MEDS: Levalbuterol 0.63 MG/3 ML UPD VIAL UPD (15:57)
[2023-11-03 16:34] LABS: BE (Venous) 0 mmol/L (-2-3); HCO3 (Venous) 23 mmol/L (23-28); O2 Sat (Venous) 96 %; TCO2 (Venous) 22 mmol/L (24-29); pCO2 (Venous) 31 mmHg (41-51); pH (Venous) 7.49 (7.31-7.41); pO2 (Venous) 73 mmHg
[2023-11-03] MEDS: VANCOMYCIN/WATER (PEG) 1.75 GM/350 ML BAG IVPB (16:53)
[2023-11-03] MEDS: Sodium Bicarbonate 50 MEQ/50 ML SYR ×2 (19:41)
[2023-11-03] MEDS: CALCIUM GLUCONATE in NaCl 1 GM/50 ML BAG IVPB (21:10)
[2023-11-04 17:20] LABS: Beta-Hydroxybutyrate 1.2 mmol/L (<0.4)
[2023-11-04 17:39] LABS: Osmolality Serum 282 mOsm/kg (275-295)
[2023-11-05 07:24] LABS: Haptoglobin 226 mg/dL (32-197)
[2023-11-05 09:51] LABS: Lyme Ab w Rflx to Lyme Confirm Negative (Negative)
[2023-11-05 10:30] LABS: Vitamin K1 0.21 ng/mL (0.10-2.20)
[2023-11-06 23:58] LABS: Ethanol, U Not Detected; Isopropanol, U Not Detected; Methanol, U Not Detected
[2023-11-07 08:19] LABS: Acetone, U 25 mg/dL
[2023-11-07 16:26] LABS: Anaplasma phagocytophilum Negative (Negative); B. miyamotoi PCR Negative (Negative); Babesia divergens/MO-1 Negative (Negative); Babesia duncani Negative (Negative); Babesia microti Negative (Negative); Ehrlichia chaffeensis Negative (Negative); Ehrlichia ewingii/canis Negative (Negative); Ehrlichia muris eauclairensis Negative (Negative)
== END 2023-11-03 21:55 | disposition short-term general hospital (02) | DRG 917 ==
LOC: ER 23:29 → ICU 11-03 00:19
PROVIDERS: Internal Medicine; Admitting Provider Family Medicine; Emergency Provider Emergency Medicine Emergency Medical Services; PCP Nurse Practitioner; Visit Provider Family Medicine
DX: T39.011A Poisoning by aspirin, accidental (unintentional), initial encounter (principal); G92.8 Other toxic encephalopathy; I21.4 Non-ST elevation (NSTEMI) myocardial infarction; E87.20 Acidosis, unspecified; M62.82 Rhabdomyolysis; D68.8 Other specified coagulation defects; J70.4 Drug-induced interstitial lung disorders, unspecified; D50.0 Iron deficiency anemia secondary to blood loss (chronic); M48.00 Spinal stenosis, site unspecified; E11.65 Type 2 diabetes mellitus with hyperglycemia; F32.A Depression, unspecified; F17.210 Nicotine dependence, cigarettes, uncomplicated; E78.00 Pure hypercholesterolemia, unspecified; G47.00 Insomnia, unspecified; I10 Essential (primary) hypertension; M54.41 Lumbago with sciatica, right side; M54.10 Radiculopathy, site unspecified; G89.29 Other chronic pain; R56.9 Unspecified convulsions; E87.6 Hypokalemia; E03.9 Hypothyroidism, unspecified; E04.2 Nontoxic multinodular goiter; J39.8 Other specified diseases of upper respiratory tract; E88.09 Other disorders of plasma-protein metabolism, not elsewhere classified; I70.0 Atherosclerosis of aorta
CPT/HCPCS: 00123; 36415; 51702; 71275; 80048; 80053; 80307; 82550; 82805; 84145; 85027; 85384; 86850; 86900; 86901; 86920; 87040; 87637; 87798; 93005; 94640; 96365; 96366; 96375; 99291; 70450; 71045; 74174; 80320; 80329; 81003; 81015; 82010; 82140; 82607; 82728; 82746; 83010; 83540; 83605; 83615; 83735; 83880; 83930; 84439; 84443; 84484; 84597; 85014; 85018; 85025; 85045; 85379; 85610; 85730; 86618; 93010; 99223; 99292; J0290; J0613; J0696; J1815; J1940; J1941; J2305; J2470; J3372; J3480; J3490; J7060; J7614; J7620; P9016

== ENCOUNTER 2023-12-19 03:29 | Outpatient (CLI) | payer MEDICARE, MEDICAID, SELFPAY ==
[2023-12-19 11:34] LABS: Abs Immature Grans 0.02 10^3/uL (0.0-0.06); Absolute Basophil Count 0.05 10^3/uL (0.0-0.2); Absolute Eosinophil Count 0.25 10^3/uL (0.0-0.7); Absolute Lymphocyte Count 1.21 10^3/uL (1.2-3.4); Absolute Monocyte Count 0.27 10^3/uL (0.1-0.8); Absolute Neutrophil Count 3.72 10^3/uL (1.2-6.7); Basophils % 0.9; Eosinophils % 4.5; HCT 34.9 % (36.0-46.0); HGB 10.4 g/dL (11.2-15.7); Immature Grans % 0.4; Lymphocytes % 21.9; MCH 26.3 pg (27.0-33.0); MCHC 29.8 % (32.0-36.0); MCV 88 fL (80-95); Monocytes % 4.9; Neutrophils % 67.4; Platelet Count 255 10^3/uL (130-400); RBC 3.96 10^6/uL (3.93-5.22); RDW 18.1 % (11.7-14.6); RDW-SD 58.7 fL; WBC 5.52 10^3/uL (4.4-10.8)
[2023-12-19 11:48] LABS: ALT 14 U/L (14-59); AST 12 U/L (15-37); Albumin 3.1 g/dL (3.4-5.0); Alkaline Phosphatase 139 U/L (46-116); Anion Gap 9.2 mmol/L (3-11); BUN 12 mg/dL (7-18); Bilirubin, Direct 0.1 mg/dL (0.0-0.2); Bilirubin, Total 0.4 mg/dL (0.2-1.0); CO2 26.8 mmol/L (21.0-32.0); CREATININE 0.7 mg/dL (0.55-1.02); Calcium 9.1 mg/dL (8.5-10.1); Chloride 103 mmol/L (98-107); Estimated GFR 87.92 (mL/min/1.73m2); Glucose 209 mg/dL (74-106); Potassium 3.4 mmol/L (3.5-5.1); Sodium 139 mmol/L (136-145); Total Protein 7.2 g/dL (6.4-8.2)
== END 2023-12-19 03:30 | disposition home or self-care (01) ==
LOC: LBO 03:29
PROVIDERS: PCP Nurse Practitioner; Visit Provider Emergency Medicine
DX: D50.0 Iron deficiency anemia secondary to blood loss (chronic) (principal); T39.091A Poisoning by salicylates, accidental (unintentional), initial encounter
CPT/HCPCS: 36415; 80053; 80076; 93227; 85025; 93225

== ENCOUNTER 2023-12-19 12:17 | Outpatient (RCR) | payer MEDICARE, MEDICAID, SELFPAY ==
--- NOTE | 2023-12-19 12:15 | HOLTER_ITS ---
APPROVED REPORT Conclusion This is a 48-hour Holter monitor Predominant rhythm is sinus with an average heart rate of 90. Minimum was 73, maximum 114 There were rare atrial premature beats There were occasional ventricular ectopic beats, which appeared most prominent during sleep. There w ere periods of bigeminy There was no atrial fibrillation, no high-grade AV block, no pauses greater than 3 seconds No patient symptoms were reported
== END 2024-01-12 23:59 | disposition home or self-care (01) ==
LOC: CARDOPNVT 12:17
PROVIDERS: PCP Nurse Practitioner; Visit Provider Internal Medicine Cardiovascular Disease
DX: I63.9 Cerebral infarction, unspecified (principal)
CPT/HCPCS: 93227; 93225; 93226

== ENCOUNTER → 2023-12-23 12:50 | Outpatient (BNVA) | payer MEDICARE, MEDICAID, SELFPAY | PROVIDERS: PCP Nurse Practitioner; Referring Provider Emergency Medicine; Visit Provider Surgery | DX: E11.621 Type 2 diabetes mellitus with foot ulcer (principal); L97.511 Non-pressure chronic ulcer of other part of right foot limited to breakdown of skin; M79.89 Other specified soft tissue disorders; I25.2 Old myocardial infarction; F17.210 Nicotine dependence, cigarettes, uncomplicated | CPT/HCPCS: 97597; 99213; 93226 ==

== ENCOUNTER 2024-01-07 13:49 | Outpatient (REF) | payer MEDICARE, MEDICAID, SELFPAY ==
[2024-01-07 14:50] LABS: Abs Immature Grans 0.02 10^3/uL (0.0-0.06); Absolute Basophil Count 0.05 10^3/uL (0.0-0.2); Absolute Eosinophil Count 0.13 10^3/uL (0.0-0.7); Absolute Lymphocyte Count 1.31 10^3/uL (1.2-3.4); Absolute Monocyte Count 0.26 10^3/uL (0.1-0.8); Absolute Neutrophil Count 4.24 10^3/uL (1.2-6.7); Basophils % 0.8; Eosinophils % 2.2; HCT 36.4 % (36.0-46.0); HGB 11.1 g/dL (11.2-15.7); Immature Grans % 0.3; Lymphocytes % 21.8; MCH 27.3 pg (27.0-33.0); MCHC 30.5 % (32.0-36.0); MCV 90 fL (80-95); MPV 10.3 fL (8.0-11.0); Monocytes % 4.3; Neutrophils % 70.6; Platelet Count 260 10^3/uL (130-400); RBC 4.06 10^6/uL (3.93-5.22); RDW 16.1 % (11.7-14.6); RDW-SD 52.8 fL; WBC 6.01 10^3/uL (4.4-10.8)
[2024-01-07 14:59] LABS: Anion Gap 10.2 mmol/L (3-11); BUN 18 mg/dL (7-18); CO2 26.8 mmol/L (21.0-32.0); CREATININE 0.7 mg/dL (0.55-1.02); Calcium 9.4 mg/dL (8.5-10.1); Chloride 102 mmol/L (98-107); Estimated GFR 87.92 (mL/min/1.73m2); Glucose 168 mg/dL (74-106); Potassium 4.2 mmol/L (3.5-5.1); Sodium 139 mmol/L (136-145)
[2024-01-07 15:01] LABS: Calculated LDL 44 mg/dL (<100); Cholesterol 130 mg/dL (<200); HDL Cholesterol 59 mg/dL (40-60); Triglyceride 139 mg/dL (<150)
== END 2024-01-07 13:50 | disposition home or self-care (01) ==
LOC: LBN 13:49
PROVIDERS: PCP Nurse Practitioner; Visit Provider Nurse Practitioner
DX: I10 Essential (primary) hypertension (principal); E78.00 Pure hypercholesterolemia, unspecified; D64.9 Anemia, unspecified
CPT/HCPCS: 80048; 80061; 85025

== ENCOUNTER → 2024-01-10 00:16 | Outpatient (CLI) | payer MEDICARE, MEDICAID, SELFPAY ==
--- NOTE | 2024-01-10 08:00 | DI.MRI_ITS ---
Exam(s) MR LOWER EXTREMITY RT WO EXAM: MR LOWER EXTREMITY RT WO CLINICAL HISTORY: ulcer rt great toe,diabetes,? osteomyelitis,l97.519,. TECHNIQUE: Multiplanar multisequence MRI was performed. CONTRAST MATERIAL: Noncontrast. COMPARISON: None. Exam interpreted without benefit of comparison plain films. FINDINGS: Exam is limited by motion. The patient could not tolerate the length of the exam. No postcontrast s equences could be performed. BONES/JOINTS: No abnormal marrow signal. SOFT TISSUES: Soft tissue wound at medial base distal phalanx of the great toe. No abscess visible. OTHER FINDINGS: None. IMPRESSION: Limited exam. No evidence of osteomyelitis. DATA REPOSITORY:
== END ==
PROVIDERS: PCP Nurse Practitioner; Visit Provider Surgery
DX: E11.621 Type 2 diabetes mellitus with foot ulcer (principal); L97.519 Non-pressure chronic ulcer of other part of right foot with unspecified severity
CPT/HCPCS: 73718

== ENCOUNTER 2024-02-23 14:24 | Emergency (ER) | payer MEDICARE, MEDICAID, SELFPAY ==
[2024-02-23 14:27] VITALS: BP 166/80; PULSE 86; RESP 14; TEMP 36.3; O2SAT 98
--- NOTE | 2024-02-23 15:58 | W.ED.GENAD ---
Discharge Plan Disposition Patient Disposition: Against Medical Advice Condition: Stable Discharge Details Clinical Impression: Peripheral artery disease Primary Care Provider: Leonila Rich ED Provider: Bright Montero Home Meds and New Rx's Prescriptions: Continued atorvastatin 40 mg tablet 40 mg PO DAILY Qty: 90 3RF losartan 25 mg tablet 25 mg PO DAILY Qty: 90 3RF acetaminophen [Tylenol Extra Strength] 500 mg tablet 500 mg PO Q6H PRN lorazepam [Ativan] 0.5 mg tablet 0.5 mg PO DIRECTED PRN (Reason: anxiety/MRI) Qty: 1 0RF Rx Instructions: Take 60 minutes prior to your MRI. You will need a public transit trolley driver if taking this medication. (DME) manual wheelchair See Rx Instructions .Route .MEDSUPPLY Qty: 1 0RF Rx Instructions: As directed aspirin 81 mg tablet,chewable 81 mg PO DAILY ferrous sulfate 325 mg (65 mg iron) tablet,delayed release (DR/EC) 325 mg PO .COMPLEX Rx Instructions: 325 mg orally Three times a wekk. --; melatonin 3 mg tablet 6 mg PO HS PRN Rx Instructions: Take x 90 days thiamine HCl (vitamin B1) 100 mg tablet 100 mg PO DAILY Rx Instructions: x 90 days Discharge Instructions Instructions: Peripheral Artery Disease (ED), Against Medical Advice (ED) Additional Instructions: You were seen in the emergency department for your right first toe pain, you have a black lesion on your toe that resembles a vasculitic lesion of arterial occlusion. There is no sign of infection. This is a serious disease that can involve amputations and loss of life and limb, you chose to leave AGAINST MEDICAL ADVICE without vascular surgery consult. I have drawn basic coagulation labs in case you need to start blood thinners. I am calling [facility] vascular surgery for you I will call you with results of their consults whether they want you to present to [facility] or seek referral from your primary care provider. You chose to leave without definitive consultation on your occlusive arterial pathology in both legs. Referrals: [facility] [Outside] (Vascular Surgery) Leonila Rich, MANAGER CARGO [Primary Care Provider] - Discharge Data Discharge Date/Time-TO BE ENTERED AT DEPARTURE: 02/23/24 20:14 HPI General Date/Time Provider Initiated Documentation: 02/23/24 14:25. HPI Narrative: 78 year-old female presents to ED today by POV/wheelchair with her family with a chief complaint of lesion to R great toe- feels it is an ingrown toe nail, seen by surgery recently for r/o of osteomyelitis- states she couldn't complete the MRI as she kept moving her leg with onset chronically. Quality described as pain in medial aspect of R great toe, pain with weight-bearing, no radiation to quiroz erythema, la-nail purulence, drainage, fluctuant swelling- there is a small black lesion at medial aspect of R great toe. Severity is described as moderate to severe. Palliating factors include nothing specific attempted. Provoking factors include nothing specific, longstanding smoking history. Events leading up to the incident/Associated Symptoms: Patient expresses dissatisfaction that the General Surgery practice wouldn't perform ingrown toenail excision. Patient not anticoagulated. Related Data Home Medications Medication Instructions Recorded Confirmed manual wheelchair #1 ea 07/09/23 12/26/23 aspirin 81 mg chewable tablet 81 mg PO DAILY 11/13/23 12/26/23 ferrous sulfate 325 mg (65 mg 325 mg PO .COMPLEX 11/13/23 12/26/23 iron) tablet,delayed release melatonin 3 mg tablet 6 mg PO HS PRN 11/13/23 12/26/23 thiamine HCl (vitamin B1) 100 mg 100 mg PO DAILY 11/13/23 12/26/23 tablet acetaminophen 500 mg tablet 500 mg PO Q6H PRN 12/23/23 12/26/23 (Tylenol Extra Strength) lorazepam 0.5 mg tablet (Ativan) 0.5 mg PO DIRECTED PRN 12/23/23 12/23/23 anxiety/MRI #1 tab atorvastatin 40 mg tablet 40 mg PO DAILY #90 tabs 01/07/24 01/07/24 losartan 25 mg tablet 25 mg PO DAILY #90 tabs 01/07/24 01/07/24 Previous Rx's Medication Instructions Recorded manual wheelchair #1 ea 07/09/23 lorazepam 0.5 mg tablet (Ativan) 0.5 mg PO DIRECTED PRN 12/23/23 anxiety/MRI #1 tab atorvastatin 40 mg tablet 40 mg PO DAILY #90 tabs 01/07/24 losartan 25 mg tablet 25 mg PO DAILY #90 tabs 01/07/24 Allergies Allergy/AdvReac Type Severity Reaction Status Date / Time No Known Allergies Allergy Verified 01/07/24 13:16 General Stated Complaint: Orthopedic GARY: 4 Review of Systems All systems reviewed & are unremarkable except as noted in HPI and below Exam Narrative Exam Narrative: GENERAL APPEARANCE: Well-nourished, non-toxic, awake and alert, atraumatic, no acute distress. SKIN: Warm, pink, dry, intact, small 0.25 cm vasculitic lesion with a black central macular portion, no purulent abscess next to the nailbed, no quiroz erythema, brisk capillary refill in the foot, cannot palpate dorsalis pedis pulse HEAD: Normocephalic, atraumatic, normal hair distribution for gender/age. EYES: Pupils PERRLA, EOMs intact without nystagmus, normal conjunctiva, no exudates on lids/lashes. ENT: Nares patent, no circumoral cyanosis, no facial swelling NECK: Supple, trachea midline, painless cervical ROM. LUNGS/CHEST: Non-labored respirations, normal A/P diameter, symmetrical expansion, no chest wall deformity HEART (CV/PV): No peripheral edema, no JVD. ABDOMEN: Soft, non-distended, no guarding. MSK: Normal ROM, no swelling/deformity to bilateral UEs or LEs, moving all extremities without weakness, no cyanosis, spine midline without tenderness, normal curvature. NEURO: Mental Status AAOx4 - alert to person, place, time, events No facial droop, no forehead involvement. Motor: No focal weakness - strength 5/5 in bilateral UEs and LEs, proximal and distal, symmetric. Sensory: sensation intact to light touch globally. Gait NT. PSYCH: dysthymic, cooperative, pleasant, appropriate speech Course Vital Signs Vital signs: Vital Signs Temperature 36.3 C L 02/23/24 14: Pulse 86 02/23/24 14:27 Respiratory Rate 14 02/23/24 14:27 Blood Pressure 166/80 H 02/23/24 14:27 Pulse Oximetry 98 02/23/24 14: Temperature 36.3 C L 02/23/24 14:27 Temperature Source Temporal Artery Scan 02/23/24 14:27 Pulse 86 02/23/24 14:27 Respiratory Rate 14 02/23/24 14:27 Blood Pressure 166/80 H 02/23/24 14:27 Blood Pressure Position Sitting 02/23/24 14:27 Pulse Oximetry 98 02/23/24 14:27 Oxygen Delivery Method Room Air 02/23/24 14:27 Oxygen Flow Rate 0 02/23/24 14:27 Pain Level 10 02/23/24 14:27 Medical Decision Making This dictation utilizes [id number] dictation software and may contain unedited grammatical errors. 78 y/o F presents to ED today with a chief complaint of R great toe pain- small black ulceration, no purulent drainage, no quiroz erythema next to nailbed, no abscess visualized. Longstanding smoking history, seen by Gen Surg - intolerant of MRI to r/o osteomyelitis. Patients' medical history: Anemia, coagulopathy, chronic GI bleeding, osteoarthritis, T2DM, COPD, history of NSTEMI, hypertension, radicular pain of right lower extremity. Family and social history: heavy smoker. Pertinent exam findings / vital signs include SKIN: Warm, pink, dry, intact, small 0.25 cm vasculitic lesion with a black central macular portion, no purulent abscess next to the nailbed, no quiroz erythema, brisk capillary refill in the foot, cannot palpate dorsalis pedis pulse. Differential / pathologies of concern include osteomyelitis, vasculitis, PAD, diabetic foot ulcer, ingrown toenail, Beurger's Dz Diagnostic studies of: -CBC, CMP, CRP/ESR, CTA Aorta w/ Runoffs. *Added Coagulation studies in case of need for anticoagulation. -CBC shows no leukocytosis, chronic anemia -CMP shows no acute abnormality -CRP/ESR neg -CTA shows significant PAD of bilateral LEs -Coags WNL Interventions of: -Patient left AMA, did follow-up with [facility] and place on list for Podiatry post-ama discharge. ED Course/Assessment/Plan: 78-year-old female presents to the ED today for right great toe pain, she feels she has an ingrown toenail or infection. She has a suspicious black lesion that resembles a vasculitic lesion on the medial aspect - no palpable dorsalis pedis pulse - CTAs show significant PAD- patient left AMA without vascular consult from [facility] which the patient requested. They state they will see her in clinic, no anticoagulation initiation warranted. Inflammatory markers negative, do not feel this is congruent with osteomyelitis. No evidence of paronychia or abscess for drainage. Findings not consistent with complete vascular compromise, patient has capillary refill, not consistent with osteomyelitis- inflammatory markers negative Disposition of Peripheral Artery Disease. Patient verbalized understanding of the plan and return to ED criteria and engaged in shared decision making. Medical Records Medical records reviewed: Yes I reviewed the patient's medical records. Imaging Data Radiologic Study: Attestation: I personally reviewed and interpreted this imaging study as follows: Imaging: CT Scan Radiologist's impression: Exam: CTA Abdominal Aorta and Bilateral Lower Extremities (Run-off) With Contrast Exam date and time: 02/23/2024 5:54 PM Age: 78 years old Clinical indication: Other: Concern vascular comp R le; Patient HX: FX of fibula 06/2023 TECHNIQUE: Imaging protocol: Computed tomographic angiography of the of the abdominal aorta, pelvis and bilateral lower extremities with contrast. 3D rendering (Not supervised by radiologist): MIP and/or 3D reconstructed images were created by the technologist. Contrast material: OMNIPAQUE 350; Contrast volume: 100 ml; Contrast route: INTRAVENOUS (IV); COMPARISON: CT THORAX ABD/PEL CTA 11/02/2023 9:32 PM FINDINGS: Aorta: No occlusion. No aneurysm. No dissection. Moderate calcified and noncalcified plaque. Noncalcified plaque complexes are noted in the descending thoracic aorta. Celiac trunk and mesenteric arteries: No occlusion. No stenosis. Moderate plaque noted at the origin of the superior mesenteric artery. Renal arteries: No occlusion. No stenosis. Mild plaque. Right iliac arteries: Common femoral artery shows moderate plaque, mild stenosis, and no occlusion or aneurysm. The internal iliac artery shows moderate proximal stenosis, moderate plaque, and occlusion in the anterior branches. The external iliac artery shows moderate plaque and a mild long segment stenosis, without occlusion. Right femoral/popliteal arteries: The common femoral artery is negative for occlusion, with mild plaque and mild stenosis. The profundus femoris artery is not occluded. The superficial femoral artery is occluded at the origin, and no reconstitution is observed. The popliteal artery is occluded. Right infrapopliteal arteries: Limited evaluation. The distal popliteal artery and tibioperoneal trunk are reconstituted. Peroneal artery is occluded in the proximal calf. The anterior tibial artery is not occluded in the proximal calf, and is severely stenotic or occluded at the dorsalis pedis. The posterior tibial artery is not occluded. Left iliac arteries: No occlusion. No stenosis in the common iliac artery. Moderate stenosis in the internal iliac artery. Moderate stenosis at the external iliac artery distally. Left femoral/popliteal arteries: The common femoral artery is negative for occlusion, with mild plaque. The profundus femoris artery is negative for occlusion, with mild plaque. The superficial femoral artery is occluded at the origin, and there is no reconstitution. The popliteal artery is reconstituted, and is negative for aneurysm. Left infrapopliteal arteries: No occlusion in the tibioperoneal trunk. Peroneal artery is occluded. The anterior tibial artery is occluded mid calf. The posterior tibial artery is not occluded to the ankle. Lungs: Moderate emphysematous changes are noted in the lung bases. No pulmonary fibrosis. Clustered subpleural nodules are noted in the posterior basilar left lower lobe, up to 5 mm diameter, axial image 25 series 6. Heart: Trace pericardial effusion. Liver: Negative for hypervascular liver mass. Gallbladder and bile ducts: Cholecystectomy clips are noted. Common bile duct measures 10 mm diameter. No calcified stones are observed. Pancreas: Unremarkable. No mass. No ductal dilation. Spleen: Normal. No splenomegaly. Adrenal glands: Normal. No mass. Kidneys and ureters: Symmetric enhancement. No hydronephrosis. Non-dilated ureters. No stones. Stomach and bowel: Unremarkable stomach. No abnormal small bowel distension. Mild wall thickening is noted throughout the jejunum and proximal ileum. Terminal ileum appears normal. Appendix: Normal appendix. Urinary bladder: Unremarkable. No mass. Reproductive: The uterus is surgically absent. Negative for adnexal mass or cyst. Intraperitoneal space: No free fluid. No free air. No abscess. Retroperitoneal space: No retroperitoneal hematoma. Lymph nodes: No lymphadenopathy. Bones/joints: Mild lumbar levoscoliosis. Multilevel degenerative disc disease and facet arthropathy are noted in the lumbar spine. Mild degenerative anterolisthesis noted at L4-L5. Compression deformity and superior endplate depression are noted at L2. Spinal canal stenosis and neural foraminal narrowing are present, particularly at L4-L5 and L5-S1. Soft tissues: No significant abdominal wall hernia. IMPRESSION: 1. Occlusion, right superficial femoral artery and right popliteal artery. Reconstitution in the moderately diseased right infrapopliteal arteries. 2. Occlusion, left superficial femoral artery. Reconstitution in the left popliteal artery. Moderately disease left infrapopliteal arteries. 3. Focal noncalcified soft plaque complexes in the aorta, a possible source for emboli. 4. Probable post infectious inflammatory or granulomatous nodules in the left lower lobe. COMMENTS: Multiplanar reformations generated at the radiologist workstation. Imaging of the feet is limited on the large field of view exam. Dictated and Authenticated by: Fitz Mccloud MD. Ordering:COY Novoa MD Lab Data Lab results reviewed: Yes I reviewed the patient's lab results. Labs: Laboratory Tests Range/Units 02/23/24 16:50 WBC (4.4-10.8) 10^3/uL 4.67 RBC (3.93-5.22) 10^6/uL 3.46 L Hgb (11.2-15.7) g/dL 10.1 L Hct (36.0-46.0) % 32.8 L MCV (80-95) fL 95 MCH (27.0-33.0) pg 29.2 MCHC (32.0-36.0) % 30.8 L RDW (11.7-14.6) % 15.5 H Plt Count (130-400) 10^3/uL 207 MPV (8.0-11.0) fL 10.0 Immature Gran % % 0.4 Neutrophils % % 63.0 Lymphocytes % % 26.1 Monocytes % % 6.0 Eosinophils % % 3.6 Basophils % % 0.9 Nucleated RBC % (0.0-0.3) % 0.0 Absolute Neutrophils (1.2-6.7) 10^3/uL 2.94 Absolute Lymphocytes (1.2-3.4) 10^3/uL 1.22 Absolute Monocytes (0.1-0.8) 10^3/uL 0.28 Absolute Eosinophils (0.0-0.7) 10^3/uL 0.17 Absolute Basophils (0.0-0.2) 10^3/uL 0.04 ESR (0-30) mm/hr 13 PT (9.1-11.1) sec 10.1 INR (0.9-1.1) 1.0 APTT (23.6-32.8) sec 24.7 Sodium (136-145) mmol/L 143 Potassium (3.5-5.1) mmol/L 3.9 Chloride (98-107) mmol/L 106 Carbon Dioxide (21.0-32.0) mmol/L 28.0 Anion Gap (3-11) mmol/L 9.0 BUN (7-18) mg/dL 13 Creatinine (0.55-1.02) mg/dL 0.5 L Est GFR (CKD-EPI 2020) (mL/min/1.73m2) 95.35 Glucose (74-106) mg/dL 121 H Calcium (8.5-10.1) mg/dL 8.8 Total Bilirubin (0.2-1.0) mg/dL 0.4 AST (15-37) U/L 13 L ALT (14-59) U/L 26 Alkaline Phosphatase (46-116) U/L 139 H C-Reactive Protein (<or=0.5) mg/dL < 0.50 Total Protein (6.4-8.2) g/dL 7.1 Albumin (3.4-5.0) g/dL 3.4 Quality:SDOH Health Related Social Needs: Health related social needs details The patient lives with her son who has no transportation PFSH All Active Problems (Updated 02/23/24 @ 19:58 by NELLY Arias) Peripheral artery disease (Acute) Osteoarthritis of joints of toes of both feet (Acute) Atherosclerosis (Acute) Patient has severe atherosclerosis noted throughout most of her blood vessels noted on recent MRI angio/MRI of the heart/MRI of the head/CT chest abdomen pelvis. 10/2023 Vertebral artery stenosis, asymptomatic (Acute) Left Soft tissue mass (Acute) 1.8 cm dorsal surface anterior aspect left second rib Diabetic ulcer of right great toe (Acute) Compression fracture of L2 lumbar vertebra (Acute) Aortic mural thrombus (Acute) Coronary artery calcification seen on CAT scan (Acute) COPD (chronic obstructive pulmonary disease) (Chronic) Mass of chest wall, right (Acute) Chronic ulcer of right great toe (Acute) Stroke (Chronic) Salicylate poisoning (Acute) Tobacco abuse (Chronic) Hypoalbuminemia (Acute) Right lower lobe pneumonia (Acute) Tracheal stenosis (Acute) Multinodular goiter (Acute) Atherosclerosis of aorta (Chronic) Rhabdomyolysis (Acute) Pulmonary edema (Acute) Encephalopathy acute (Acute) Iron deficiency (Chronic) Pneumonia (Acute) Acute on chronic anemia (Acute) NSTEMI (non-ST elevated myocardial infarction) (Acute) 10/2023 Fracture of fibula, distal, right, closed (Acute ~07/09/23) Depression (Acute 05/31/15) Spinal stenosis, unspecified region other than cervical (Chronic 10/26/11) Smoker unmotivated to quit (Acute 05/31/15) Pure hypercholesterolemia (Acute 02/27/17) Iron deficiency anemia due to chronic blood loss (Chronic 03/16/14) due to NSAID, ASA, ? lesion Insomnia (Acute 02/27/17) Essential hypertension (Acute 01/26/13) Diabetes mellitus (Chronic 01/26/13) Radicular pain of right lower extremity (Acute) Chronic low back pain with right-sided sciatica (Acute) Medical History (Updated 02/23/24 @ 19:58 by NELLY Arias) Acute anemia Metabolic acidosis, increased anion gap Lactic acidosis Hypokalemia Coagulopathy Hypoprothrombinemia Continuous opioid dependence (10/21/13) Chronic GI bleeding (07/18/15) Surgical History Abdominal hysterectomy Cholecystectomy Family History Father Myocardial infarction Grandfather Essential hypertension Social History Smoking/Tobacco Use Status: Current every day Tobacco Type: cigarettes Quit status: not considering quitting Smoking risk assessment performed?: Yes Alcohol Intake: former Details: alcholic quit 1977 Drug use: Never Substance use type: does not use Adopted: No Caregiver/Support person: Yes Foster care: No Household members: other Details: self and son Housing: apartment Number of Children: 1 number of grandchildren: 0 Communication Needs: None 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
--- NOTE | 2024-02-23 16:17 | DI.CT_ITS ---
Exam(s) CT ABD AORTA CTA W RUNOFF EXAM: CT ABD AORTA CTA W RUNOFF CLINICAL HISTORY: concern vascular comp R LE. TECHNIQUE: Imaging Protocol: Axial CT angiography was performed with multi-slice acquisition and mu lti-planar and/or 3D reconstructions. CONTRAST MATERIAL: Intravenous: Omnipaque 350 Contrast volume:structured data in ml mL Oral: yes / no COMPARISON: CT RENAL COLIC WO CONTRAST from 12/29/[address] THORAX ABD/PEL CTA from 11/02/2023 FINDINGS: Vascular Structures: Abdomen and pelvis: Celiac [place]/SMA: No evidence of occlusion or significant stenosis. Atherosclerosis at the origin of the SMA. Renal Arteries: No evidence of occlusion or significant stenosis. The sclerosis at the origins of the or renal arteries without significant stenosis. Aorta: No aneurysm, occlusion or significant stenosis. No dissection. Iliac Arteries: On the right, there is calcific plaque present. There is mild stenosis of the right common iliac artery but no occlusion. There is occlusion of the several of the anterior branches of the right internal iliac artery. The external iliac artery shows moderate plaque and stenosis but n o occlusion. On the left there is atherosclerotic plaque seen but no occlusion. Lower extremities: Right: Common femoral: Atherosclerotic calcification is present with stenosis but no occlusion. Deep Femoral Artery: No evidence of occlusion or significant stenosis. Superficial femoral artery: The SFA is occluded. Popliteal: The popliteal artery is occluded. Knee Trifurcation: The distal popliteal arteries visualized as is the trifurcation. The peroneal art swathi however is occluded in the proximal calf. The posterior tibial and anterior tibial arteries show areas of stenosis. Left: Common femoral: No evidence of occlusion but there is calcific plaque present causing mild stenosis. Deep femoral artery: No evidence of occlusion or significant stenosis. Superficial femoral artery: The SFA is occluded. Popliteal: No evidence ofocclusion or significant stenosis. Knee Trifurcation: The anterior tibial and peroneal arteries are occluded. The posterior tibial jono ry appears to be patent to the level of the ankle. Soft Tissues: Lung bases: Coronary artery calcifications and/or stents. Small nodules are seen in the left lower l obe. Liver: Normal density. No measurable mass. Gallbladder and biliary tract: Status post cholecystectomy. There is mild prominence of the extrahep atic bile duct likely reflecting the post cholecystectomy state. 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 Pancreas: Normal density, no abnormal calcifications or inflammatory process. Spleen: Normal. Kidneys: Normal size, contour and axis. No radiodense stones or obstructive uropathy. No masses seen. 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 No follo w-up is recommended. Bladder: Symmetric distention, no gross wall thickening. Reproductive organs: Status post hysterectomy. Bowel: No obstruction or bowel wall thickening. No evidence of appendicitis. Peritoneal cavity: No ascites, collection or mesenteric inflammatory response. No free air. Bones: Within normal limits for the patient's age. Degenerative changes in the lumbar spine causing central spinal canal stenosis from L3-4 through L5-S1. MRI may be obtained for further evaluation. IMPRESSION: 1. Bilateral superficial femoral artery occlusion. Occlusive disease seen bilaterally in the infrapo pliteal arteries as described above. 2. No evidence of an abdominal aortic aneurysm. 3. No definite acute abdominal or pelvic process. Incidental finding seen in the abdomen and pelvis as described above. 4. Nodular infiltrate in the left lower lobe. RADIATION DOSE DELIVERED: 1,036.07mGy.cm Total DLP 1,036.07mGy.cm Total DLP DATA REPOSITORY: All CT scans at this facility are submitted to the National Radiology Data Registry (NRDR) Dose Index Registry (DIR) with the [employer] (ACR). RADIATION OPTIMIZATION: All CT scans at this facility use at least one of these dose optimization te chniques: automated exposure control; mA and/or kV adjustment per patient size (includes targeted exa ms where dose is matched to clinical indication); or iterative reconstruction.
[2024-02-23 17:01] LABS: Abs Immature Grans 0.02 10^3/uL (0.0-0.06); Absolute Basophil Count 0.04 10^3/uL (0.0-0.2); Absolute Eosinophil Count 0.17 10^3/uL (0.0-0.7); Absolute Lymphocyte Count 1.22 10^3/uL (1.2-3.4); Absolute Monocyte Count 0.28 10^3/uL (0.1-0.8); Absolute Neutrophil Count 2.94 10^3/uL (1.2-6.7); Basophils % 0.9 %; Eosinophils % 3.6 %; HCT 32.8 % (36.0-46.0); HGB 10.1 g/dL (11.2-15.7); Immature Grans % 0.4 %; Lymphocytes % 26.1 %; MCH 29.2 pg (27.0-33.0); MCHC 30.8 % (32.0-36.0); MCV 95 fL (80-95); Platelet Count 207 10^3/uL (130-400); RBC 3.46 10^6/uL (3.93-5.22); RDW 15.5 % (11.7-14.6); RDW-SD 53.7 fL; WBC 4.67 10^3/uL (4.4-10.8)
[2024-02-23 17:03] LABS: ESR 13 mm/hr (0-30)
[2024-02-23 17:17] LABS: ALT 26 U/L (14-59); AST 13 U/L (15-37); Albumin 3.4 g/dL (3.4-5.0); Alkaline Phosphatase 139 U/L (46-116); BUN 13 mg/dL (7-18); Bilirubin, Total 0.4 mg/dL (0.2-1.0); CREATININE 0.5 mg/dL (0.55-1.02); Calcium 8.8 mg/dL (8.5-10.1); Chloride 106 mmol/L (98-107); Estimated GFR 95.35 (mL/min/1.73m2); Glucose 121 mg/dL (74-106); Potassium 3.9 mmol/L (3.5-5.1); Sodium 143 mmol/L (136-145); Total Protein 7.1 g/dL (6.4-8.2)
[2024-02-23 17:19] LABS: C-Reactive Protein < 0.50 mg/dL (<or=0.5)
[2024-02-23] MEDS: Omnipaque 350 MG/ML 100 ML BTL IJ (17:55)
[2024-02-23] MEDS: Normal Saline - Diluent 50 ML VIAL IJ (17:55)
--- NOTE | 2024-02-23 19:29 | DI.[facility]_ITS ---
PROCEDURE INFORMATION: Exam: CTA Abdominal Aorta and Bilateral Lower Extremities (Run-off) With Contrast Exam date and time: 02/23/2024 5:54 PM Age: 78 years old Clinical indication: Other: Concern vascular comp R le; Patient HX: FX of fibula 06/2023 TECHNIQUE: Imaging protocol: Computed tomographic angiography of the of the abdominal aorta, pelvis and bilateral lower extremities with contrast. 3D rendering (Not supervised by radiologist): MIP and/or 3D reconstructed images were created by the technologist. Contrast material: OMNIPAQUE 350; Contrast volume: 100 ml; Contrast route: INTRAVENOUS (IV); COMPARISON: CT THORAX ABD/PEL CTA 11/02/2023 9:32 PM FINDINGS: Aorta: No occlusion. No aneurysm. No dissection. Moderate calcified and noncalcified plaque. Noncalcified plaque complexes are noted in the descending thoracic aorta. Celiac trunk and mesenteric arteries: No occlusion. No stenosis. Moderate plaque noted at the origin of the superior mesenteric artery. Renal arteries: No occlusion. No stenosis. Mild plaque. Right iliac arteries: Common femoral artery shows moderate plaque, mild stenosis, and no occlusion or aneurysm. The internal iliac artery shows moderate proximal stenosis, moderate plaque, and occlusion in the anterior branches. The external iliac artery shows moderate plaque and a mild long segment stenosis, without occlusion. Right femoral/popliteal arteries: The common femoral artery is negative for occlusion, with mild plaque and mild stenosis. The profundus femoris artery is not occluded. The superficial femoral artery is occluded at the origin, and no reconstitution is observed. The popliteal artery is occluded. Right infrapopliteal arteries: Limited evaluation. The distal popliteal artery and tibioperoneal trunk are reconstituted. Peroneal artery is occluded in the proximal calf. The anterior tibial artery is not occluded in the proximal calf, and is severely stenotic or occluded at the dorsalis pedis. The posterior tibial artery is not occluded. Left iliac arteries: No occlusion. No stenosis in the common iliac artery. Moderate stenosis in the internal iliac artery. Moderate stenosis at the external iliac artery distally. Left femoral/popliteal arteries: The common femoral artery is negative for occlusion, with mild plaque. The profundus femoris artery is negative for occlusion, with mild plaque. The superficial femoral artery is occluded at the origin, and there is no reconstitution. The popliteal artery is reconstituted, and is negative for aneurysm. Left infrapopliteal arteries: No occlusion in the tibioperoneal trunk. Peroneal artery is occluded. The anterior tibial artery is occluded mid calf. The posterior tibial artery is not occluded to the ankle. Lungs: Moderate emphysematous changes are noted in the lung bases. No pulmonary fibrosis. Clustered subpleural nodules are noted in the posterior basilar left lower lobe, up to 5 mm diameter, axial image 25 series 6. Heart: Trace pericardial effusion. Liver: Negative for hypervascular liver mass. Gallbladder and bile ducts: Cholecystectomy clips are noted. Common bile duct measures 10 mm diameter. No calcified stones are observed. Pancreas: Unremarkable. No mass. No ductal dilation. Spleen: Normal. No splenomegaly. Adrenal glands: Normal. No mass. Kidneys and ureters: Symmetric enhancement. No hydronephrosis. Non-dilated ureters. No stones. Stomach and bowel: Unremarkable stomach. No abnormal small bowel distension. Mild wall thickening is noted throughout the jejunum and proximal ileum. Terminal ileum appears normal. Appendix: Normal appendix. Urinary bladder: Unremarkable. No mass. Reproductive: The uterus is surgically absent. Negative for adnexal mass or cyst. Intraperitoneal space: No free fluid. No free air. No abscess. Retroperitoneal space: No retroperitoneal hematoma. Lymph nodes: No lymphadenopathy. Bones/joints: Mild lumbar levoscoliosis. Multilevel degenerative disc disease and facet arthropathy are noted in the lumbar spine. Mild degenerative anterolisthesis noted at L4-L5. Compression deformity and superior endplate depression are noted at L2. Spinal canal stenosis and neural foraminal narrowing are present, particularly at L4-L5 and L5-S1. Soft tissues: No significant abdominal wall hernia. IMPRESSION: 1. Occlusion, right superficial femoral artery and right popliteal artery. Reconstitution in the moderately diseased right infrapopliteal arteries. 2. Occlusion, left superficial femoral artery. Reconstitution in the left popliteal artery. Moderately disease left infrapopliteal arteries. 3. Focal noncalcified soft plaque complexes in the aorta, a possible source for emboli. 4. Probable post infectious inflammatory or granulomatous nodules in the left lower lobe. COMMENTS: Multiplanar reformations generated at the radiologist workstation. Imaging of the feet is limited on the large field of view exam. Dictated and Authenticated by: Fitz Mccloud MD. Ordering:COY Novoa MD
[2024-02-23 20:04] LABS: PTT Activated 24.7 sec (23.6-32.8); Prothrombin Time 10.1 sec (9.1-11.1)
--- NOTE | 2024-02-24 16:00 | NUR.NOTE ---
Referral given to Podiatry for follow up to Vasculitic Lesion of Arterial Occusion as soon as possible. Left message with voice mail for the Pt to let them know that the [facility] Vascular Surgery will see her in their clinic,
== END 2024-02-23 20:14 | disposition left against medical advice (07) ==
PROVIDERS: Emergency Provider Physician Assistant; PCP Nurse Practitioner
DX: I73.9 Peripheral vascular disease, unspecified (principal); E11.9 Type 2 diabetes mellitus without complications; J44.9 Chronic obstructive pulmonary disease, unspecified; I10 Essential (primary) hypertension; I25.10 Atherosclerotic heart disease of native coronary artery without angina pectoris; F17.210 Nicotine dependence, cigarettes, uncomplicated; Z79.82 Long term (current) use of aspirin; Z79.899 Other long term (current) drug therapy
CPT/HCPCS: 36415; 75635; 80053; 85652; 99285; 85025; 85610; 85730; 86140; 99284; J3490

== ENCOUNTER → 2024-03-02 13:57 | Outpatient (BNVA) | payer MEDICARE, MEDICAID, SELFPAY | PROVIDERS: PCP Nurse Practitioner; Referring Provider Nurse Practitioner; Visit Provider Podiatrist | DX: L97.512 Non-pressure chronic ulcer of other part of right foot with fat layer exposed; L03.031 Cellulitis of right toe; I70.203 Unspecified atherosclerosis of native arteries of extremities, bilateral legs; E11.40 Type 2 diabetes mellitus with diabetic neuropathy, unspecified; F17.200 Nicotine dependence, unspecified, uncomplicated; B35.1 Tinea unguium; L60.3 Nail dystrophy | CPT/HCPCS: 99214; 11042; 11721 ==

== ENCOUNTER 2024-03-02 14:19 | Outpatient (REF) | payer MEDICARE, MEDICAID, SELFPAY | END 2024-03-02 14:20 | disposition home or self-care (01) | LOC: LBN 14:19 | PROVIDERS: PCP Nurse Practitioner; Visit Provider Podiatrist | DX: E11.621 Type 2 diabetes mellitus with foot ulcer (principal); L97.519 Non-pressure chronic ulcer of other part of right foot with unspecified severity; I73.9 Peripheral vascular disease, unspecified | CPT/HCPCS: 87077; 87070; 87075; 87186; 87205 ==

== ENCOUNTER → 2024-03-10 00:28 | Outpatient (CLI) | payer MEDICARE, MEDICAID, SELFPAY ==
--- NOTE | 2024-03-10 07:45 | DI.RAD_ITS ---
Exam(s) XR FOOT RT COMPLETE EXAM: XR FOOT RT COMPLETE CLINICAL HISTORY: ? Osteomyelitis, ? hallux.ULCER RT FOOT, L97.519,L97.512. TECHNIQUE: 2D digital imaging was performed. Three views. COMPARISON: MR MR LOWER EXTREMITY RT WO from 01/10/2024 FINDINGS: BONES: The bones are osteopenic. Heel spurs. No acute fracture is present. Old fracture deformity of the 2nd metatarsal. No bony destructive lesion is seen. JOINTS: No dislocation present. There is a prominent plantar arch. Mild degenerative changes 1st MT P joint and intertarsal articulations. Hammertoe deformities.. SOFT TISSUE: Gauze at medial aspect of great toe. No foreign body or abnormal gas collection visible . IMPRESSION: soft tissue swelling medial to great toe. No visible bony erosions. DATA REPOSITORY: RADIATION DOSE DELIVERED:
== END ==
PROVIDERS: PCP Nurse Practitioner; Visit Provider Podiatrist
DX: L97.512 Non-pressure chronic ulcer of other part of right foot with fat layer exposed (principal)
CPT/HCPCS: 73630

== ENCOUNTER → 2024-03-17 15:23 | Outpatient (BNVA) | payer MEDICARE, MEDICAID, SELFPAY | PROVIDERS: PCP Nurse Practitioner; Referring Provider Nurse Practitioner; Visit Provider Podiatrist | DX: L97.512 Non-pressure chronic ulcer of other part of right foot with fat layer exposed; L03.115 Cellulitis of right lower limb; I70.203 Unspecified atherosclerosis of native arteries of extremities, bilateral legs; E11.40 Type 2 diabetes mellitus with diabetic neuropathy, unspecified; F17.200 Nicotine dependence, unspecified, uncomplicated; B35.1 Tinea unguium; L60.3 Nail dystrophy | CPT/HCPCS: 11042 ==

== ENCOUNTER → 2024-04-08 15:12 | Outpatient (BNVA) | payer MEDICARE, MEDICAID, SELFPAY | PROVIDERS: PCP Nurse Practitioner; Referring Provider Nurse Practitioner; Visit Provider Podiatrist | DX: L97.512 Non-pressure chronic ulcer of other part of right foot with fat layer exposed (principal); I70.203 Unspecified atherosclerosis of native arteries of extremities, bilateral legs; L03.115 Cellulitis of right lower limb; E11.40 Type 2 diabetes mellitus with diabetic neuropathy, unspecified; F17.200 Nicotine dependence, unspecified, uncomplicated; B35.1 Tinea unguium; L60.3 Nail dystrophy | CPT/HCPCS: 11042 ==

== ENCOUNTER → 2024-04-29 14:02 | Outpatient (BNVA) | payer MEDICARE, MEDICAID, SELFPAY | PROVIDERS: PCP Nurse Practitioner; Referring Provider Nurse Practitioner; Visit Provider Podiatrist | DX: L97.512 Non-pressure chronic ulcer of other part of right foot with fat layer exposed; L03.032 Cellulitis of left toe; I70.203 Unspecified atherosclerosis of native arteries of extremities, bilateral legs; L60.3 Nail dystrophy; E11.40 Type 2 diabetes mellitus with diabetic neuropathy, unspecified; B35.1 Tinea unguium; F17.200 Nicotine dependence, unspecified, uncomplicated | CPT/HCPCS: 11042 ==

== ENCOUNTER → 2024-05-27 12:59 | Outpatient (BNVA) | payer MEDICARE, MEDICAID, SELFPAY | PROVIDERS: PCP Nurse Practitioner; Referring Provider Nurse Practitioner; Visit Provider Podiatrist | DX: L97.512 Non-pressure chronic ulcer of other part of right foot with fat layer exposed; L03.115 Cellulitis of right lower limb; I70.203 Unspecified atherosclerosis of native arteries of extremities, bilateral legs; L60.3 Nail dystrophy; E11.40 Type 2 diabetes mellitus with diabetic neuropathy, unspecified; B35.1 Tinea unguium; F17.200 Nicotine dependence, unspecified, uncomplicated | CPT/HCPCS: 99213 ==

== ENCOUNTER 2025-02-26 22:26 | Emergency (ER) | payer MEDICARE, MEDICAID, SELFPAY ==
[2025-02-26] VITALS (15 sets, daily range): BP systolic 129–178; BP diastolic 41–146; PULSE 98–110; RESP 18–31; TEMP 36.6; O2SAT 94–96
--- NOTE | 2025-02-26 00:15 | DI.CT_ITS ---
Exam(s) CT CHEST/ABD/PEL W EXAM: CT CHEST/ABD/PEL W CLINICAL HISTORY: fall, L flank, hip rib pain, left lower back TECHNIQUE: Imaging Protocol: Axial computed tomography images with coronal and sagittal reformatted images were created and reviewed. Lung Computer Aided Detection (CAD) was utilized. CONTRAST MATERIAL: Intravenous: Omnipaque 350 contrast volume:100 mL Oral: No COMPARISON: CT RENAL COLIC WO CONTRAST from 12/29/[address] THORAX ABD/PEL CTA from 11/02/[address] ABD AORTA CTA W RUNOFF from 02/23/2024 FINDINGS: CHEST: Tracheobronchial tree: Patent where visualized. No evidence of bronchiectasis. Pulmonary parenchyma: Moderate emphysematous changes are present in the lungs. There is a new 4 mm n odule in the posterior aspect of the left lower lobe. (Series 4, image 86). Calcified granulomas pr esent in the right lower lobe. There is a new 3 mm nodule in the left lower lobe (series 4, image 89 ). There is a persistent opacity in the posterior aspect of the right lower lobe. The area measures 2 x 1.3 cm. There is again seen scarring in the right middle lobe. No new focal infiltrates are se en. Visualized thyroid gland: There is a multinodular thyroid gland. The largest nodule is in the right lobe and measures 2.3 x 2.5 cm. It is heterogeneous with calcifications. A nonemergent thyroid ultr asound is recommended for further evaluation. The thyroid gland is enlarged. Mediastinum and Rosario: No dominant adenopathy or fluid collection. The esophagus is unremarkable. Pleura: No effusion or pneumothorax. Heart: The heart is not dilated. Three vessel coronary artery calcification is present. No pericardi al effusion. Pulmonary arteries: No pulmonary emboli are identified. Aorta: Thoracic aorta non-dilated. No evidence of dissection. Atherosclerotic calcification is prese nt. Lymph nodes: Within normal limits. Soft tissues: Unremarkable. Bones:Within normal limits for the patient's age. There is an old L2 compression deformity. ABDOMEN: Liver: There is decreased attenuation of the liver suggesting fatty infiltration. No measurable mass . Portal, Superior Mesenteric, and Splenic Veins: Unremarkable. Gallbladder and Biliary Tract: Status post cholecystectomy. No significant biliary ductal dilatation is present. There has been no significant change of the bile duct compared to the prior examination . Pancreas: Normal density, no abnormal calcifications or inflammatory process. Spleen: Normal. Adrenals: There is a stable left adrenal nodule likely reflecting an adenoma. The right adrenal glan d is unremarkable. No follow-up is recommended. Kidneys: Normal size, contour and axis. No radiodense stones or obstructive uropathy. There are few t iny hypodensities in the kidneys. They are too small for further characterization but likely reflect small cysts. No follow-up is recommended. Abdominal Aorta: Abdominal portion non-dilated. Atherosclerotic calcification is present. Bowel: No obstruction or bowel wall thickening. Appendix is unremarkable. Peritoneal Cavity: No ascites, collection or mesenteric inflammatory response. No free air. Lymph Nodes: Within normal limits. Bones: Within normal limits for the patient's age. Multilevel degenerative changes are seen in the l umbar spine resulting in marked central spinal canal stenosis at L3-4 and L4-L5. Soft Tissues: Unremarkable. PELVIS: Bladder: Symmetric distention, no gross wall thickening. Reproductive Organs: Status post hysterectomy. Lymph Nodes: Within normal limits. Bones: Within normal limits. IMPRESSION: 1. No acute thoracic, abdominal or pelvic injury. 2. Multinodular thyroid gland. Nonemergent thyroid ultrasound is requested for further evaluation. 3. Two new pulmonary nodules. Solid nodules smaller than 6 mm do not require routine follow-up in all patients with high clinical r isk; however, some nodules smaller than 6 mm with suspicious morphology, upper lobe location, or both may warrant follow-up at 12 months (grade 2A; weak recommendation, high-quality evidence). (Artie et al., 2017) Single solid noncalcified nodules. ???Solid nodules smaller than 6 mm (those 5 mm or smaller) do not require routine follow-up in patients at low risk (grade 1C; strong recommendation, low- or very-low- quality evidence). (Artie et al., 2017) 4. Stable opacity in the posterior aspect of the right lobe of the liver. A neoplasm should be consi dered. Focal scarring cannot be excluded. Follow-up as clinically appropriate. 5. The preliminary [facility] report was reviewed. Unexpected findings RADIATION DOSE DELIVERED: 425.59mGy.cm Total DLP DATA REPOSITORY: All CT scans at this facility are submitted to the National Radiology Data Registry (NRDR) Dose Index Registry (DIR) with the [employer] ([employer]). RADIATION OPTIMIZATION: All CT scans at this facility use at least one of these dose optimization te chniques: automated exposure control; mA and/or kV adjustment per patient size (includes targeted exa ms where dose is matched to clinical indication); or iterative reconstruction.
--- NOTE | 2025-02-26 00:15 | DI.RAD_ITS ---
Exam(s) XR KNEE RT 3V AP,LAT,PATIENCE EXAM: XR KNEE RT 3V AP,LAT,PATIENCE CLINICAL HISTORY: fall, generlized knee pain. TECHNIQUE: 2D digital imaging was performed of the right knee. Three views obtained. AP, lateral an d PA tunnel views were obtained. COMPARISON: CR RIGHT KNEE 3 VIEWS from 07/01/2012 FINDINGS: BONES: No acute fracture is present. No bony destructive lesion is seen. There is mild osteopenia. JOINTS: The knee is normally aligned. There is a small joint effusion. SOFT TISSUE: Atherosclerotic calcification is present. IMPRESSION: 1. No acute fracture or dislocation is present. 2. The preliminary [facility] report was reviewed. DATA REPOSITORY: RADIATION DOSE DELIVERED:
--- NOTE | 2025-02-26 22:45 | RT.EKG_ITS ---
APPROVED REPORT Exam: Resting ECG Reason for Exam: palpitations Patient Location: E HR:99 bpm ECG Measurements Heart Rate 99 AXIS TX 208 P 80 QRSd 95 QRS 37 QT 358 T 68 QTc 459 Conclusion Sinus rhythm...normal P axis, V-rate 60- 99 Paired ventricular premature complexes...sequence of 2 V complexes Borderline prolonged TX interval...TX >207, V-rate 91-120
[2025-02-26 22:55] LABS: Abs Immature Grans 0.02 10^3/uL (0.0-0.06); Absolute Basophil Count 0.04 10^3/uL (0.0-0.2); Absolute Eosinophil Count 0.14 10^3/uL (0.0-0.7); Absolute Lymphocyte Count 1.53 10^3/uL (1.2-3.4); Absolute Monocyte Count 0.44 10^3/uL (0.1-0.8); Absolute Neutrophil Count 4.61 10^3/uL (1.2-6.7); Basophils % 0.6 %; Eosinophils % 2.1 %; HCT 26.7 % (36.0-46.0); HGB 7.2 g/dL (11.2-15.7); Immature Grans % 0.3 %; Lymphocytes % 22.6 %; MCH 21.3 pg (27.0-33.0); MCV 79 fL (80-95); MPV 11.8 fL (8.0-11.0); Monocytes % 6.5 %; Neutrophils % 67.9 %; Platelet Count 222 10^3/uL (130-400); RBC 3.38 10^6/uL (3.93-5.22); RDW 17.2 % (11.7-14.6); RDW-SD 48.5 fL; WBC 6.78 10^3/uL (4.4-10.8)
[2025-02-26 23:04] LABS: Hypochromasia 1+
[2025-02-26] MEDS: Normal Saline 500 ML IV (23:05)
[2025-02-26 23:10] LABS: PTT Activated 20.8 sec (20.6-30.2); Prothrombin Time 9.7 sec (9.1-11.1)
[2025-02-26 23:21] LABS: ALT 19 U/L (14-59); AST 15 U/L (15-37); Albumin 3.5 g/dL (3.4-5.0); Alkaline Phosphatase 147 U/L (46-116); Anion Gap 6.8 mmol/L (3-11); BUN 18 mg/dL (7-18); Bilirubin, Total 0.3 mg/dL (0.2-1.0); CO2 29.2 mmol/L (21.0-32.0); CREATININE 0.8 mg/dL (0.55-1.02); Calcium 9.2 mg/dL (8.5-10.1); Chloride 104 mmol/L (98-107); Estimated GFR 74.44 (mL/min/1.73m2); Glucose 236 mg/dL (74-106); Potassium 3.9 mmol/L (3.5-5.1); Sodium 140 mmol/L (136-145); TSH (W/Ref FT4) 0.71 uIU/mL (0.36-3.74); Total Protein 7.5 g/dL (6.4-8.2); Troponin I 18 ng/L (<or=51)
--- NOTE | 2025-02-26 23:41 | ED.GENADUL_ITS ---
Discharge Plan Disposition Patient Disposition: Home Condition: Good Discharge Details Clinical Impression: Fall, Anemia, Cavitary lesion of lung Primary Care Provider: Leonila Rich ED Provider: Bright Giron Home Meds and New Rx's Prescriptions: New ferrous sulfate [iron] 325 mg (65 mg iron) tablet 325 mg PO DAILY Qty: 60 0RF No Action acetaminophen [Tylenol Extra Strength] 500 mg tablet 500 mg PO Q6H PRN (DME) manual wheelchair See Rx Instructions .Route .MEDSUPPLY Qty: 1 0RF Rx Instructions: As directed thiamine HCl (vitamin B1) 100 mg tablet 100 mg PO DAILY Qty: 90 3RF Rx Instructions: x 90 days fluoxetine 20 mg capsule 20 mg PO DAILY Qty: 90 3RF losartan 50 mg tablet 50 mg PO DAILY Qty: 90 3RF trazodone 50 mg tablet 50 mg PO QHS PRN (Reason: sleep) Qty: 90 1RF aspirin 81 mg tablet,chewable 81 mg PO DAILY melatonin 3 mg tablet 6 mg PO HS PRN Rx Instructions: Take x 90 days atorvastatin 40 mg tablet 40 mg PO DAILY Patient Comments: TAKE ONE TABLET BY MOUTH EVERY DAY losartan 25 mg tablet 25 mg PO DAILY Patient Comments: TAKE ONE TABLET BY MOUTH EVERY DAY Discharge Instructions Instructions: Anemia caused by low iron Additional Instructions: At this time your workup has returned and shows that you have a low blood level. You were given a unit of blood tonight. I suspect a component of this is because of a low iron level. I have sent a prescription for a daily iron supplement for the next 60 days to your pharmacy. Please take this as prescribed. Additionally we have placed a referral with our surgeons for follow- up for you for potential discussion of need for colonoscopy to evaluate for any intestinal lesions that could cause bleeding like this. As we discussed together, your CAT scan does show evidence of a chronic lung lesion as well. Please make sure to follow-up with the health assessment and treatment teacher for further discussion of this lesion which appears to be slightly growing in size. We have placed a referral for you with the health assessment and treatment teacher. If you notice any worsening of your symptoms, or any new symptoms such as vomiting, diarrhea, fever, chills, shortness of breath, chest pain, numbness, weakness, or fainting , please return immediately to the emergency department for reevaluation. Please follow up with your primary care provider as soon as possible for reassessment and reevaluation. As always, it was a pleasure participating in your medical care today. HPI General Date/Time Provider Initiated Documentation: 02/26/25 22:38 . HPI Narrative: 79-year-old female with a past history of previous GI bleed, hysterectomy, cholecystectomy, chronic smoker, diabetes mellitus, chronic compression fracture of the L2 vertebra, coronary artery disease, COPD, high cholesterol, hypertension, who chronically ambulates with a wheelchair who presents today for evaluation of right knee pain and left flank pain after a fall. Patient was transitioning from the wheelchair to bed when she fell and hit her right knee as well as the left ribs/flank. This was about 3 hours ago. Since then she has been having pain in those areas. She has an old bruise in her left hip, but this has been unchanged since the fall. She admits to chronic weakness in the lower extremities, but no new weakness. No chest pain or shortness of breath otherwise. No weakness in the upper extremities. She did not hit her head. She did not lose conscious. Additionally she admits to sensation of palpitations over the last day or so, which is slightly worse when she does activity. She denies any syncope or lightheadedness though. She denies vomiting or diarrhea. No other complaints at this time. She is not on any anticoagulants, but does take a daily aspirin. Related Data Home Medications ?Medication ?Instructions ?Recorded ?Confirmed manual wheelchair #1 ea 07/09/23 02/26/25 aspirin 81 mg chewable tablet 81 mg PO DAILY 11/13/23 02/26/25 melatonin 3 mg tablet 6 mg PO HS PRN 11/13/23 02/26/25 acetaminophen 500 mg tablet 500 mg PO Q6H PRN 12/23/23 02/26/25 (Tylenol Extra Strength) fluoxetine 20 mg capsule 20 mg PO DAILY #90 caps 08/11/24 02/26/25 thiamine HCl (vitamin B1) 100 mg 100 mg PO DAILY #90 tabs 08/11/24 02/26/25 tablet losartan 50 mg tablet 50 mg PO DAILY #90 tabs 01/26/25 02/26/25 trazodone 50 mg tablet 50 mg PO QHS PRN sleep #90 tabs 01/26/25 02/26/25 atorvastatin 40 mg tablet 40 mg PO DAILY 02/26/25 02/26/25 losartan 25 mg tablet 25 mg PO DAILY 02/26/25 02/26/25 ferrous sulfate 325 mg (65 mg 325 mg PO DAILY #60 tabs 02/27/25 iron) tablet (iron) Previous Rx's ?Medication ?Instructions ?Recorded manual wheelchair #1 ea 07/09/23 fluoxetine 20 mg capsule 20 mg PO DAILY #90 caps 08/11/24 thiamine HCl (vitamin B1) 100 mg 100 mg PO DAILY #90 tabs 08/11/24 tablet losartan 50 mg tablet 50 mg PO DAILY #90 tabs 01/26/25 trazodone 50 mg tablet 50 mg PO QHS PRN sleep #90 tabs 01/26/25 ferrous sulfate 325 mg (65 mg 325 mg PO DAILY #60 tabs 02/27/25 iron) tablet (iron) Allergies Allergy/AdvReac Type Severity Reaction Status Date / Time No Known Allergies Allergy Verified 01/26/25 17:22 General Stated Complaint: Fall/Non TraumaCriteria GARY: 3 Exam Narrative Exam Narrative: 1.Const: Well-nourished, Well-developed, appearing stated age 2.Eyes: PERRL, no conjunctival injection, and symmetrical lids. 3.ENT: Atraumatic external nose and ears. Dry MM. Neck: Symmetric, trachea midline, No thyromegaly. There is no evidence of raccoon eyes, baker sign, CSF rhinorrhea, mastoid tenderness, cranial crepitus, hemotympanum, exophthalmos, or hyphema. Patient demonstrates intact dentition with no signs of tooth avulsion or fracture, no signs of jaw deformity, no evidence of a LeFort's fracture, with an intact palate, nose and orbital region. There is no evidence of a nasal septal hematoma. No proptosis. Jaw closes symmetrically. Airway is clear. 4.CVS: +S1/S2, Peripheral pulses 2+ and equal in all extremities. Brisk capillary refill in all extremities. 5.RESP: Unlabored respiratory effort. Clear to auscultation bilaterally. No wheezes rales or rhonchi 6.GI: Soft, Nontender/Nondistended, No hepatosplenomegaly. No guarding or rebound. 7.MSK: Normocephalic, Extremities w/o deformity. Right knee demonstrates tenderness over the proximal fibula and tibial plateau, however there is no associated swelling. No mid or distal tibia/fibula pain. No ankle pain. No right hip pain. Mild left hip tenderness on palpation over the area of the bruise, but no pain with logroll. No pain in the left lower extremity otherwise. Mild left lateral and left posterior rib pain around ribs 8 9 and 10, no rash, no deformity or subcutaneous crepitus. 8.Skin: Warm, Dry. No rashes or lesions. 9.Neuro: cloth beamer II-XII grossly intact. Sensation grossly intact, no focal neurologic deficits. 10.Psych: (AAO) x3. Appropriate mood and affect Course Vital Signs Vital signs: Vital Signs Temperature 36.6 C 02/26/25 22:32 Pulse 100 H 02/26/25 22:32 Respiratory Rate 18 02/26/25 22:32 Blood Pressure 169/41 H 02/26/25 22:32 Pulse Oximetry 96 02/26/25 22:32 Temperature 36.6 C 02/26/25 22:32 Temperature Source Temporal Artery Scan 02/26/25 22:32 Pulse 100 H 02/26/25 22:32 Respiratory Rate 18 02/26/25 22:32 Blood Pressure 169/41 H 02/26/25 22:32 Blood Pressure Position Sitting 02/26/25 22:32 Pulse Oximetry 96 02/26/25 22:32 Oxygen Delivery Method Room Air 02/26/25 22:32 Oxygen Flow Rate 0 02/26/25 22:32 Pain Level 8 02/26/25 22:47 Lab/Test Results Lab/Test Results: Laboratory Tests Range/Units 02/26/25 22:40 WBC (4.4-10.8) 10^3/uL 6.78 RBC (3.93-5.22) 10^6/uL 3.38 L Hgb (11.2-15.7) g/dL 7.2 L Hct (36.0-46.0) % 26.7 L MCV (80-95) fL 79 L MCH (27.0-33.0) pg 21.3 L MCHC (32.0-36.0) % 27.0 L RDW (11.7-14.6) % 17.2 H Plt Count (130-400) 10^3/uL 222 MPV (8.0-11.0) fL 11.8 H Immature Gran % % 0.3 Neutrophils % % 67.9 Lymphocytes % % 22.6 Monocytes % % 6.5 Eosinophils % % 2.1 Basophils % % 0.6 Nucleated RBC % (0.0-0.3) % 0.0 Absolute Neutrophils (1.2-6.7) 10^3/uL 4.61 Absolute Lymphocytes (1.2-3.4) 10^3/uL 1.53 Absolute Monocytes (0.1-0.8) 10^3/uL 0.44 Absolute Eosinophils (0.0-0.7) 10^3/uL 0.14 Absolute Basophils (0.0-0.2) 10^3/uL 0.04 RBC Morphology See Below Hypochromasia 1+ PT (9.1-11.1) sec 9.7 INR (0.9-1.1) 1.0 APTT (20.6-30.2) sec 20.8 Sodium (136-145) mmol/L 140 Potassium (3.5-5.1) mmol/L 3.9 Chloride (98-107) mmol/L 104 Carbon Dioxide (21.0-32.0) mmol/L 29.2 Anion Gap (3-11) mmol/L 6.8 BUN (7-18) mg/dL 18 Creatinine (0.55-1.02) mg/dL 0.8 Est GFR (CKD-EPI 2020) (mL/min/1.73m2) 74.44 Glucose (74-106) mg/dL 236 H Calcium (8.5-10.1) mg/dL 9.2 Total Bilirubin (0.2-1.0) mg/dL 0.3 AST (15-37) U/L 15 ALT (14-59) U/L 19 Alkaline Phosphatase (46-116) U/L 147 H Troponin I (<or=51) ng/L 18 Total Protein (6.4-8.2) g/dL 7.5 Albumin (3.4-5.0) g/dL 3.5 TSH (0.36-3.74) uIU/mL 0.71 Medical Decision Making 79-year-old female with a past history of previous GI bleed, hysterectomy, cholecystectomy, chronic smoker, diabetes mellitus, chronic compression fracture of the L2 vertebra, coronary artery disease, COPD, high cholesterol, hypertension, who chronically ambulates with a wheelchair who presents today for evaluation of right knee pain and left flank pain after a fall. Patient was transitioning from the wheelchair to bed when she fell and hit her right knee as well as the left ribs/flank. This was about 3 hours ago. Since then she has been having pain in those areas. She has an old bruise in her left hip, but this has been unchanged since the fall. She admits to chronic weakness in the lower extremities, but no new weakness. No chest pain or shortness of breath otherwise. No weakness in the upper extremities. She did not hit her head. She did not lose conscious. Additionally she admits to sensation of palpitations over the last day or so, which is slightly worse when she does activity. She denies any syncope or lightheadedness though. She denies vomiting or diarrhea. No other complaints at this time. She is not on any anticoagulants, but does take a daily aspirin. Exam demonstrates mild tenderness over the right knee, minimal bruising over the left hip with mild tenderness there as well. Mild tenderness over the left back and flank. Differential is broad but includes osseous injuries to these areas. Uncertain as to why the patient has been having palpitations and weakness, dehydration is certainly of concern, as this potential electrolyte disturbance. Urinary tract infection less likely as she has no dysuria or urinary frequency. Will evaluate for these etiologies, get CT imaging of the chest and abdomen to evaluate for intra-abdominal traumatic process, will get x-ray imaging of the right knee, monitor closely and reassess. 12:27 AM Laboratory workup shows no white count or bandemia, hemoglobin is low at 7.2 which appears to be a 2-3 point drop over the last year. Patient denies any bloody stools, melena, or hematemesis. She does admit to a hemorrhoid that occasionally has a small amount of blood, but denies any other components. No evidence of active bleed at this time. No melena. 2:32 AM Review of the labs show the patient's acute anemia, it does appear to be microcytic in origin. She denies any history of GI bleed in the past year. Suspect low iron to be the primary cause, however out of an abundance of caution we will place referral with surgery for colonoscopy to check for potential bleeding gastric ulcer with EGD or intraluminal lesion. In addition to this, CT imaging shows no acute process but does show evidence of a chronic spiculated cavitary mass in the right lower lobe. I discussed this with the patient and her family who is at bedside and they are aware of this. We will place a referral with pulmonology for further evaluation and follow-up with this. Otherwise the patient appears well and stable. She was given a unit of PRBCs, and feels much better after this. Heart rate has remained stable, EKG benign. No dysrhythmias while here. No hypotension or shock. I suspect some of her symptoms of weakness are secondary to the anemia. Will give prescription for daily iron supplements. Otherwise troponins are normal, the remainder of her labs are stable. No other indications for emergent interventions. Patient will be discharged home. Discussed importance of follow-up with surgery and pulmonology. Discussed red flags for which to return. I have extensively reviewed the treatment plan and discharge instructions with the patient. I have addressed all patient concerns at this time. The patient was made aware of what symptoms to monitor for that would warrant a return to the emergency department. Discussed the plan with the patient, they demonstrate verbal understanding and agreement with our assessment and plan at this time. The documentation in this chart was dictated using [employer] dictation software. Please excuse any dictation errors. FINDINGS: Thyroid: The thyroid gland is markedly enlarged and has a heterogeneous appearance with multiple internal calcifications and low-density cystic lesions. Lungs: There is severe centrilobular emphysema with an apical predominance. A centrally cavitary, spiculated 2.5 x 1.9 cm mass is present within the posterior right lower lobe. This is likely slightly increased in size when compared with the study dated 11/02/2023; however motion artifact on the prior study limits direct comparison. 4 mm pulmonary nodules are present at the posterior left lung base which were not visualized on the prior study. Pleural spaces: A smoothly marginated 1.7 cm mass is present along the anterior superior left pleural space. This is likely similar in size to the comparison CT dated 11/02/2023. No pleural effusion or pneumothorax. Heart: Heart is normal size. Coronary arteries: There are moderate atheromatous coronary artery calcifications. Lymph nodes: Unremarkable. No enlarged lymph nodes. Vasculature: Atheromatous calcifications are present within the visualized th oracic aorta. Moderate atheromatous plaque is present throughout the descending thoracic aorta. No hemodynamically significant stenosis. No aneurysmal dilatation. No acute pulmonary embolus. Bones/joints: Unremarkable. No acute fracture. Soft tissues: Unremarkable. IMPRESSION: 1. Heterogeneous enlarged thyroid gland. If further characterization is warranted, thyroid ultrasound could be used. 2. Slight increase in the size of a spiculated cavitary mass in the right lower lobe when compared with the study dated 11/02/2023. Findings may represent pulmonary scarring or indolent neoplasm. 3. No acute pulmonary findings. FINDINGS: Liver: The liver has a normal appearance. Gallbladder and biliary ducts: The gallbladder is surgically absent. Pancreas: Normal. No ductal dilation. Spleen: The spleen demonstrates normal size. Adrenal glands: The right adrenal gland has a normal appearance. A 1.4 cm left adrenal gland nodule is noted and is unchanged from the CT dated 11/02/2023. Kidneys and ureters: The kidneys are normal in size. No nephrolithiasis or hydronephrosis. No hydroureter or ureterolithiasis. Stomach and bowel: The bowel demonstrates overall normal caliber and wall thickness. Appendix: The appendix is thin walled. Intraperitoneal space: Unremarkable. No free air. No significant fluid collection. Vasculature: There are dense atheromatous calcifications throughout the aorta and iliac arteries Lymph nodes: No enlarged lymph nodes. Urinary bladder: The bladder is thin walled and fluid filled. Reproductive: Unremarkable as visualized. Bones/joints: Bones have a normal appearance. No acute fracture or suspicious bone lesion. Severe compression deformity at L2 is unchanged from 2023. Soft tissues: Unremarkable. IMPRESSION: 1. No acute intra-abdominal findings. 2. Normal appendix. Thank you for allowing us to participate in the care of your patient. Dictated and Authenticated by: Luh Riddle MD 02/27/2025 12:56 AM Eastern Time ([place] & [place] FINDINGS: Bones/joints: Bones are osteopenic. No acute fracture or dislocation. There is moderate femorotibial joint space narrowing and small intercondylar osteophytes. No knee joint effusion. Soft tissues: There are scattered soft tissue vascular calcifications. IMPRESSION: 1. No acute findings. 2. Mild osteoarthritis. Thank you for allowing us to participate in the care of your patient. Dictated and Authenticated by: Luh Riddle MD 02/27/2025 12:58 AM Eastern Time ([place] & [place]) Quality:SDOH Health Related Social Needs: Health related social needs details The patient lives with her son who has no transportation Critical Care Time Critical Care Time Critical Care Time: Yes Total Critical Care Time: 30 Attestation: Upon my evaluation, this patient had a high probability of imminent or life-thre atening deterioration, which required my direct attention, intervention, and personal management. I have personally provided 30 minutes of critical care time exclusive of time spent on separately billable procedures. Time includes review of laboratory data, radiology results, discussion with consultants, and monitoring for potential decompensation. Interventions were performed as documented. [facility] All Active Problems (Updated 02/27/25 @ 02:29 by Bright Giron DO) Cavitary lesion of lung (Acute) Anemia (Chronic) Fall (Acute) Chronic toe pain, bilateral (Acute ~01/2025) 01/29/25 [facility] Acquired bilateral foot drop (Acute ~01/2025) 01/29/25 [facility] Right hand pain (Acute) Right hand weakness (Acute) Nail dystrophy (Acute) Onychomycosis (Acute) Smoker (Acute) Diabetes mellitus with neuropathy (Acute) Stenosis of artery of both lower extremities (Acute) Atherosclerosis of artery of both lower extremities (Acute) Cellulitis (Acute) Ulcer of right foot with fat layer exposed (Acute) Ischemic ulcer of right foot (Acute) Osteoarthritis of joints of toes of both feet (Acute) Atherosclerosis (Acute) Patient has severe atherosclerosis noted throughout most of her blood vessels noted on recent MRI angio/MRI of the heart/MRI of the head/CT chest abdomen pelvis. 10/2023 Vertebral artery stenosis, asymptomatic (Acute) Left Soft tissue mass (Acute) 1.8 cm dorsal surface anterior aspect left second rib Diabetic ulcer of right great toe (Acute) 05/19/24 [facility] Vascular Surgery Visit Compression fracture of L2 lumbar vertebra (Acute) Aortic mural thrombus (Acute) Coronary artery calcification seen on CAT scan (Acute) COPD (chronic obstructive pulmonary disease) (Chronic) Mass of chest wall, right (Acute) Chronic ulcer of right great toe (Acute) Stroke (Chronic) Salicylate poisoning (Acute) Tobacco abuse (Chronic) Hypoalbuminemia (Acute) Right lower lobe pneumonia (Acute) Tracheal stenosis (Acute) Multinodular goiter (Acute) Atherosclerosis of aorta (Chronic) Rhabdomyolysis (Acute) Pulmonary edema (Acute) Encephalopathy acute (Acute) Iron deficiency (Chronic) Pneumonia (Acute) Acute on chronic anemia (Acute) NSTEMI (non-ST elevated myocardial infarction) (Acute) 10/2023 Fracture of fibula, distal, right, closed (Acute ~07/09/23) Depression (Acute 05/31/15) Spinal stenosis, unspecified region other than cervical (Chronic 10/26/11) Smoker unmotivated to quit (Acute 05/31/15) Pure hypercholesterolemia (Acute 02/27/17) Iron deficiency anemia due to chronic blood loss (Chronic 03/16/14) due to NSAID, ASA, ? lesion Insomnia (Acute 02/27/17) Essential hypertension (Acute 01/26/13) Diabetes mellitus (Chronic 01/26/13) Radicular pain of right lower extremity (Acute) Chronic low back pain with right-sided sciatica (Acute) Medical History Metabolic acidosis, increased anion gap Lactic acidosis Hypokalemia Coagulopathy Acute anemia Hypoprothrombinemia Continuous opioid dependence (10/21/13) Chronic GI bleeding (07/18/15) Surgical History Abdominal hysterectomy Cholecystectomy Family History Father Myocardial infarction Grandfather Essential hypertension Social History Smoking/Tobacco Use Status: Current every day Tobacco Type: cigarettes Quit status: not considering quitting Smoking risk assessment performed?: Yes Alcohol Intake: former Details: alcholic quit 1977 Drug use: Never Substance use type: does not use Adopted: No Caregiver/Support person: Yes Foster care: No Household members: other Details: self and son Housing: apartment Number of Children: 1 number of grandchildren: 0 Communication Needs: None 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
[2025-02-27] VITALS (32 sets, daily range): BP systolic 142–179; BP diastolic 49–138; PULSE 41–103; RESP 16–28; TEMP 36.4–36.7; O2SAT 72–97
[2025-02-27 00:12] LABS: Troponin I 20 ng/L (<or=51)
[2025-02-27] MEDS: Normal Saline - Diluent 50 ML VIAL IJ (00:14)
[2025-02-27] MEDS: Omnipaque 350 MG/ML 100 ML BTL IJ (00:14)
[2025-02-27] MEDS: ACETAMINOPHEN 1,000 MG/100 ML BTL 400 MG IVPB (00:53)
--- NOTE | 2025-02-27 00:56 | DI.[facility]_ITS ---
PROCEDURE INFORMATION: Exam: CT Chest With Contrast; Diagnostic Exam date and time: 02/26/2025 11:38 PM Age: 79 years old Clinical indication: Injury or trauma; Generalized; Blunt trauma (contusions or hematomas); Injury date: 02/25/25; Fall, L flank, hip and rib pain, left lower back TECHNIQUE: Imaging protocol: Diagnostic computed tomography of the chest with contrast. Radiation optimization: All CT scans at this facility use at least one of these dose optimization techniques: automated exposure control; mA and/or kV adjustment per patient size (includes targeted exams where dose is matched to clinical indication); or iterative reconstruction. Contrast material: [id number]; Contrast volume: 100 ml; Contrast route: INTRAVENOUS (IV); COMPARISON: CT THORAX ABD/PEL CTA 11/02/2023 9:32 PM FINDINGS: Thyroid: The thyroid gland is markedly enlarged and has a heterogeneous appearance with multiple internal calcifications and low-density cystic lesions. Lungs: There is severe centrilobular emphysema with an apical predominance. A centrally cavitary, spiculated 2.5 x 1.9 cm mass is present within the posterior right lower lobe. This is likely slightly increased in size when compared with the study dated 11/02/2023; however motion artifact on the prior study limits direct comparison. 4 mm pulmonary nodules are present at the posterior left lung base which were not visualized on the prior study. Pleural spaces: A smoothly marginated 1.7 cm mass is present along the anterior superior left pleural space. This is likely similar in size to the comparison CT dated 11/02/2023. No pleural effusion or pneumothorax. Heart: Heart is normal size. Coronary arteries: There are moderate atheromatous coronary artery calcifications. Lymph nodes: Unremarkable. No enlarged lymph nodes. Vasculature: Atheromatous calcifications are present within the visualized thoracic aorta. Moderate atheromatous plaque is present throughout the descending thoracic aorta. No hemodynamically significant stenosis. No aneurysmal dilatation. No acute pulmonary embolus. Bones/joints: Unremarkable. No acute fracture. Soft tissues: Unremarkable. IMPRESSION: 1. Heterogeneous enlarged thyroid gland. If further characterization is warranted, thyroid ultrasound could be used. 2. Slight increase in the size of a spiculated cavitary mass in the right lower lobe when compared with the study dated 11/02/2023. Findings may represent pulmonary scarring or indolent neoplasm. 3. No acute pulmonary findings. PROCEDURE INFORMATION: Exam: CT Abdomen And Pelvis With Contrast Exam date and time: 02/26/2025 11:38 PM Age: 79 years old Clinical indication: Injury or trauma; Generalized; Blunt trauma (contusions or hematomas); Injury date: 02/25/25; Fall, L flank, hip and rib pain, left lower back TECHNIQUE: Imaging protocol: Computed tomography of the abdomen and pelvis with contrast. Radiation optimization: All CT scans at this facility use at least one of these dose optimization techniques: automated exposure control; mA and/or kV adjustment per patient size (includes targeted exams where dose is matched to clinical indication); or iterative reconstruction. COMPARISON: No relevant prior studies available. FINDINGS: Liver: The liver has a normal appearance. Gallbladder and biliary ducts: The gallbladder is surgically absent. Pancreas: Normal. No ductal dilation. Spleen: The spleen demonstrates normal size. Adrenal glands: The right adrenal gland has a normal appearance. A 1.4 cm left adrenal gland nodule is noted and is unchanged from the CT dated 11/02/2023. Kidneys and ureters: The kidneys are normal in size. No nephrolithiasis or hydronephrosis. No hydroureter or ureterolithiasis. Stomach and bowel: The bowel demonstrates overall normal caliber and wall thickness. Appendix: The appendix is thin walled. Intraperitoneal space: Unremarkable. No free air. No significant fluid collection. Vasculature: There are dense atheromatous calcifications throughout the aorta and iliac arteries. Lymph nodes: No enlarged lymph nodes. Urinary bladder: The bladder is thin walled and fluid filled. Reproductive: Unremarkable as visualized. Bones/joints: Bones have a normal appearance. No acute fracture or suspicious bone lesion. Severe compression deformity at L2 is unchanged from 2023. Soft tissues: Unremarkable. IMPRESSION: 1. No acute intra-abdominal findings. 2. Normal appendix. Dictated and Authenticated by: Luh Riddle MD. Orderin Bree Novoa MD
--- NOTE | 2025-02-27 00:58 | DI.VRAD_ITS ---
PROCEDURE INFORMATION: Exam: XR Right Knee Exam date and time: 02/27/2025 12:04 AM Age: 79 years old Clinical indication: Injury or trauma; Blunt trauma; Right; Injury date: 02/25/25; Fall, generalized knee pain TECHNIQUE: Imaging protocol: Radiologic exam of the right knee. Views: 3 views. COMPARISON: CT ABD AORTA CTA W RUNOFF 02/23/2024 5:54 PM FINDINGS: Bones/joints: Bones are osteopenic. No acute fracture or dislocation. There is moderate femorotibial joint space narrowing and small intercondylar osteophytes. No knee joint effusion. Soft tissues: There are scattered soft tissue vascular calcifications. IMPRESSION: 1. No acute findings. 2. Mild osteoarthritis. Dictated and Authenticated by: Luh Riddle MD. Orderin Bree Novoa MD
[2025-02-27] MEDS: Lidocaine 5% Patch 1 PATCH TP (02:36)
== END 2025-02-27 04:05 | disposition home or self-care (01) ==
PROVIDERS: Emergency Provider Student in an Organized Health Care Education/Training Program; PCP Nurse Practitioner
DX: M25.561 Pain in right knee (principal); M25.461 Effusion, right knee; E11.9 Type 2 diabetes mellitus without complications; I25.10 Atherosclerotic heart disease of native coronary artery without angina pectoris; I25.2 Old myocardial infarction; I10 Essential (primary) hypertension; E78.5 Hyperlipidemia, unspecified; J44.9 Chronic obstructive pulmonary disease, unspecified; F17.210 Nicotine dependence, cigarettes, uncomplicated; Z79.82 Long term (current) use of aspirin; Z86.73 Personal history of transient ischemic attack (TIA), and cerebral infarction without residual deficits; W05.0XXA Fall from non-moving wheelchair, initial encounter; Y93.89 Activity, other specified; Y92.018 Other place in single-family (private) house as the place of occurrence of the external cause; D64.9 Anemia, unspecified; J98.4 Other disorders of lung
CPT/HCPCS: 36415; 36430; 73562; 74177; 80053; 86850; 86900; 86901; 86920; 93005; 96361; 96365; 99285; 71260; 84443; 84484; 85025; 85610; 85730; 93010; J0131; J3490; P9016

== ENCOUNTER 2025-03-11 15:24 | Outpatient (CLI) | payer MEDICARE, MEDICAID, SELFPAY ==
--- NOTE | 2025-03-11 15:15 | DI.RAD_ITS ---
Exam(s) XR KNEE LT 4V AP,LAT,PATIENCE,PAT EXAM: XR KNEE LT 4V AP,LAT,PATIENCE,PAT CLINICAL HISTORY: left knee pain. TECHNIQUE: 2D digital imaging was performed. COMPARISON: CR,XR XR KNEE RT 3V AP,LAT,PATIENCE from 02/27/2025 FINDINGS: Four views No evidence of fracture nor obvious joint effusion. There are mild degenerative changes in the medial compartment. Lateral compartment appears unremarka ble as does the patellofemoral compartment. Bone density is age-appropriate. No osseous lesions. IMPRESSION: Mild degenerative changes in the medial compartment. There is no evidence of obvious joint effusion in the knee. DATA REPOSITORY: RADIATION DOSE DELIVERED:
== END 2025-03-11 15:25 | disposition home or self-care (01) ==
LOC: DIORS 15:25
PROVIDERS: PCP Nurse Practitioner; Referring Provider Nurse Practitioner; Visit Provider Physician Assistant
DX: M17.0 Bilateral primary osteoarthritis of knee (principal); R29.898 Other symptoms and signs involving the musculoskeletal system; I10 Essential (primary) hypertension; J44.9 Chronic obstructive pulmonary disease, unspecified; E11.9 Type 2 diabetes mellitus without complications
CPT/HCPCS: 99214; 73564

== ENCOUNTER → 2025-04-14 14:29 | Outpatient (BNVA) | payer MEDICARE, MEDICAID, SELFPAY | PROVIDERS: PCP Nurse Practitioner; Referring Provider Nurse Practitioner; Visit Provider Physical Therapy Assistant | DX: D64.9 Anemia, unspecified (principal) | CPT/HCPCS: 99213 ==

== ENCOUNTER → 2025-04-20 12:45 | Outpatient (BNVA) | payer MEDICARE, MEDICAID, SELFPAY | PROVIDERS: PCP Nurse Practitioner; Referring Provider Nurse Practitioner; Visit Provider Internal Medicine Pulmonary Disease | DX: R91.8 Other nonspecific abnormal finding of lung field (principal); J44.9 Chronic obstructive pulmonary disease, unspecified; F17.210 Nicotine dependence, cigarettes, uncomplicated; J43.9 Emphysema, unspecified; Z23 Encounter for immunization | CPT/HCPCS: 99215; 90471; 90684 ==

== ENCOUNTER 2025-07-26 02:26 | Outpatient (CLI) | payer MEDICARE, MEDICAID, SELFPAY ==
--- NOTE | 2025-07-26 14:00 | DI.US_ITS ---
Exam(s) US THYROID EXAM: US THYROID CLINICAL HISTORY: Enlarged thyroid on CT in 02/2025,MULTINODULAR GOITER,E04.2,E04.9. TECHNIQUE: Ultrasound thyroid performed using standard protocol. COMPARISON: No exams were available for comparison FINDINGS: ISTHMUS: 2 mm RIGHT LOBE: Size: 5.8 x 2.4 x 2.7 cm Echogenicity: Heterogeneous Vascularity: Normal. Nodules: Multiple, making it difficult to discern discrete nodules. The largest nodule is in the mid to lower portion measuring 2.5 x 2.0 x 2.4 cm. Solid, isoechoic, wider than tall, smoothly marginated with punctate echogenic foci, TR 4. LEFT LOBE: Size: 5.9 x 3.2 x 2.6 cm Echogenicity: Heterogeneous. Vascularity: Normal. Nodules: Multiple, making it difficult to discern discrete nodules. Largest nodule is at the upper pole measuring 1.5 cm, mixed cystic and solid, hypoechoic, wider than tall, smoothly marginated without echogenic foci, TR 4. OTHER FINDINGS: No adenopathy. IMPRESSION: Multinodular thyroid. The largest nodules are TR 4 bilaterally, FNA recommended. DATA REPOSITORY:
== END 2025-07-26 02:46 ==
LOC: DI 02:39
DX: E04.2 Nontoxic multinodular goiter (principal)
CPT/HCPCS: 76536

== ENCOUNTER → 2025-08-23 14:04 | Outpatient (BNVA) | payer MEDICARE, MEDICAID, SELFPAY | PROVIDERS: Referring Provider Nurse Practitioner; Visit Provider Internal Medicine Pulmonary Disease | DX: J43.9 Emphysema, unspecified (principal); R91.8 Other nonspecific abnormal finding of lung field; F17.210 Nicotine dependence, cigarettes, uncomplicated; R05.3 Chronic cough | CPT/HCPCS: 99214 ==

== ENCOUNTER 2025-08-25 01:29 | Outpatient (CLI) | payer MEDICARE, MEDICAID, SELFPAY ==
[2025-08-25] MEDS: Inhaler, Assist Device 1 EACH MC (17:32)
[2025-08-25] MEDS: Levalbuterol HFA 15 GM INH 4 PUFF IH (17:32)
--- NOTE | 2025-08-27 11:43 | W.PFT ---
Date of service: 08/25/25 Time of Service: 13:01 Pulmonary Function Test Result Indications: COPD, pulmonary nodules Impression 1. Good patient effort was noted. ATS standards for reproducibility were met. 2. Spirometry showed moderate obstructive lung disease with an FEV1 of 69% (1.07 L) 3. Following the administration of a bronchodilator there was not a significant response 4. DLCO was 50%, consistent with a moderate defect in alveolar gas exchange 5. Was unable to complete lung volume testing
== END 2025-08-25 01:30 | disposition home or self-care (01) ==
LOC: RT 01:29
PROVIDERS: Visit Provider Internal Medicine Pulmonary Disease
DX: J44.9 Chronic obstructive pulmonary disease, unspecified (principal); R91.8 Other nonspecific abnormal finding of lung field
CPT/HCPCS: 94060; 94726; 94729

== ENCOUNTER 2025-08-30 20:11 | Observation (INO) | payer MEDICARE, MEDICAID, SELFPAY ==
--- NOTE | 2025-08-30 20:15 | DI.RAD_ITS ---
Exam(s) XR PORTABLE CHEST AP EXAM: XR PORTABLE CHEST AP CLINICAL HISTORY: malaise TECHNIQUE: 2D digital imaging was performed. COMPARISON: CR,XR XR CHEST 1V IN DI DEPT from 11/03/[address] CHEST/ABD/PEL W from 02/26/2025 FINDINGS: LUNGS: Calcified granuloma again noted at the left lung base. No acute infiltrates. No pleural abnormality seen. HEART: Normal size. AORTA: Normal diameter. BONES: Scoliosis. Old right rib fracture. Soft tissues: Unremarkable. IMPRESSION: No acute findings. The preliminary [facility] report was reviewed. DATA REPOSITORY: RADIATION DOSE DELIVERED:
--- NOTE | 2025-08-30 20:15 | RT.EKG_ITS ---
APPROVED REPORT Exam: Resting ECG Reason for Exam: [facility] Patient Location: E HR:90 bpm ECG Measurements Heart Rate 90 AXIS UT 72 P 0 QRSd 89 QRS 63 QT 365 T 69 QTc 445 Conclusion Sinus rhythm...normal P axis, V-rate 60- 99 Low voltage, precordial leads...precordial leads <1.0mV No STEMI
[2025-08-30 20:29] VITALS: BP 128/60; PULSE 82; RESP 22; TEMP 36.4; O2SAT 93
[2025-08-30 20:37] VITALS: BP 128/60; PULSE 82; RESP 22; TEMP 36.4; O2SAT 93
[2025-08-30 21:40] LABS: Glucose >=1000 mg/dL (Negative)
[2025-08-30 21:46] LABS: C & S Indicated? No; WBC 0-2 HPF (0-5)
--- NOTE | 2025-08-30 21:50 | DI.VRAD_ITS ---
PROCEDURE INFORMATION: Exam: XR Chest Exam date and time: 08/30/2025 8:46 PM Age: 80 years old Clinical indication: Other: Malaise TECHNIQUE: Imaging protocol: Radiologic exam of the chest. Views: 1 view. COMPARISON: CT CHEST/ABD/PEL W 02/26/2025 11:38 PM FINDINGS: Lungs: Calcified granuloma identified in the left lower lobe. Pleural spaces: Unremarkable. No pleural effusion. No pneumothorax. Heart/Mediastinum: Unremarkable. No cardiomegaly. Bones/joints: Unremarkable. IMPRESSION: No acute findings. Dictated and Authenticated by: Ananth Paris MD. Orderin Sal Berumen MD
[2025-08-30 22:03] LABS: Abs Immature Grans 0.02 10^3/uL (0.0-0.06); HCT 28.6 % (36.0-46.0); HGB 8.3 g/dL (11.2-15.7); Immature Grans % 0.4 %; MCH 25.3 pg (27.0-33.0); MCHC 29.0 % (32.0-36.0); MCV 87 fL (80-95); MPV 11.2 fL (8.0-11.0); Platelet Count 195 10^3/uL (130-400); RBC 3.28 10^6/uL (3.93-5.22); RDW 14.4 % (11.7-14.6); RDW-SD 45.3 fL; WBC 4.61 10^3/uL (4.4-10.8)
[2025-08-30 22:19] LABS: Magnesium 2.1 mg/dL (1.6-2.6)
[2025-08-30 22:20] LABS: ALT 12 U/L (10-49); AST 16 U/L (<34); Albumin 4.4 g/dL (3.4-5.0); Alkaline Phosphatase 126 U/L (46-116); Anion Gap 7.3 mmol/L (3-11); BUN 8 mg/dL (9-23); Bilirubin, Total 0.30 mg/dL (0.2-1.2); CO2 26.7 mmol/L (20.0-31.0); Calcium 8.5 mg/dL (8.3-10.6); Chloride 106 mmol/L (98-107); Glucose 207 mg/dL (74-106); Potassium 4.1 mmol/L (3.5-5.1); Sodium 140 mmol/L (136-145); Total Protein 7.3 g/dL (5.7-8.2)
--- NOTE | 2025-08-30 22:23 | W.ED.GENAD ---
Discharge Plan Discharge Details Chief Complaint: RespSymp Clinical Impression: Unable to ambulate Primary Care Provider: Crescencio Smith ED Provider: Ata Huang Home Meds and New Rx's Prescriptions: No Action (DME) manual wheelchair See Rx Instructions .Route .MEDSUPPLY Qty: 1 0RF Rx Instructions: As directed varenicline tartrate 0.5 mg (11)- 1 mg (42) tablets,dose pack See Rx Instructions PO PER PKG DIR Qty: 1 0RF Rx Instructions: PO PER PKG DIR varenicline tartrate 1 mg tablet 1 mg PO BID Qty: 56 0RF Rx Instructions: To begin after the starter pack is complete trazodone 50 mg tablet 50 mg PO QHS PRN (Reason: sleep) Qty: 90 1RF aspirin 81 mg tablet,chewable 81 mg PO DAILY fluoxetine 20 mg capsule 20 mg PO DAILY Qty: 30 0RF atorvastatin 40 mg tablet 40 mg PO DAILY Qty: 90 3RF Patient Comments: TAKE ONE TABLET BY MOUTH EVERY DAY melatonin 3 mg tablet 6 mg PO HS PRN (Reason: sleep) Qty: 90 3RF Rx Instructions: Take x 90 days losartan 50 mg tablet 50 mg PO DAILY Qty: 90 3RF ferrous sulfate [iron] 325 mg (65 mg iron) tablet 325 mg PO DAILY Qty: 60 3RF thiamine HCl (vitamin B1) 100 mg tablet 100 mg PO DAILY Qty: 60 3RF Rx Instructions: x 90 days acetaminophen [Tylenol Extra Strength] 500 mg tablet 500 mg PO Q6H PRN (Reason: pain) Qty: 60 3RF HPI General Date/Time Provider Initiated Documentation: 08/30/25 20:20. HPI Narrative: MDM/Narrative: 80-year-old female multiple medical problems who is currently wheelchair-bound presents for evaluation as her family care member has just been admitted the hospital. Vital signs within normal limits. No acute findings on physical examination. Given that the patient is unable to care for self she will likely require placement. Will perform metabolic, toxic, infectious evaluation to medically clear patient for placement. ED course: Screening labs and chest x-ray are unremarkable. However given patient is unable to care for self, will continue to monitor in the emergency department so care management is able to evaluate the patient in the morning to determine placement. Patient care signed out to Dr. Simon pending care management evaluation and disposition. Disposition: Pending HPI: 80-year-old female with past med history of spinal stenosis, is currently wheelchair-bound, current smoker, agoraphobia, CAD with NSTEMI in the past, COPD not on home oxygen, presents for evaluation as her son who is her primary vice president of product marketing, is being admitted to the hospital. Patient states that she is unable to take care of herself as she is unable to transfer from her wheelchair perform most of her ADLs. Patient denies any new or acute problems, but does note a cough for the past year with some associated shortness of breath for which she is seen by pulmonology. ROS: Negative besides as mentioned above Exam: Gen: A&O NAD, elderly and frail HEENT: NCAT, EOMI, not icteric. External ears normal. No rhinorrhea. Moist mucous membranes. Neck: Supple, full range of motion, no observable masses, No meningeal sign. Lungs: No Respiratory distress. CV: RRR, no edema. Abdomen: Soft, nondistended, No rebound tenderness. MSK: No joint swelling, no redness. Skin: No rashes, petechiae, lesions. Normal color per patient. Neuro: Grossly intact. Psych: Appropriate for situation. Rhythm: NSR Rate: 90 [place]: Normal axis Intervals: Normal intervals Other findings: No acute ST segment or T wave changes to suggest acute ischemia. Labs: Laboratory Tests Range/Units 08/30/25 08/30/25 08/30/25 21:30 21:53 23:12 WBC (4.4-10.8) 10^3/uL 4.61 RBC (3.93-5.22) 10^6/uL 3.28 L Hgb (11.2-15.7) g/dL 8.3 L Hct (36.0-46.0) % 28.6 L MCV (80-95) fL 87 MCH (27.0-33.0) pg 25.3 L MCHC (32.0-36.0) % 29.0 L RDW (11.7-14.6) % 14.4 Plt Count (130-400) 10^3/uL 195 MPV (8.0-11.0) fL 11.2 H Immature Gran % % 0.4 Neutrophils % % 67.6 Lymphocytes % % 22.6 Monocytes % % 6.3 Eosinophils % % 2.4 Basophils % % 0.7 Nucleated RBC % (0.0-0.3) % 0.0 Absolute Neutrophils (1.2-6.7) 10^3/uL 3.12 Absolute Lymphocytes (1.2-3.4) 10^3/uL 1.04 L Absolute Monocytes (0.1-0.8) 10^3/uL 0.29 Absolute Eosinophils (0.0-0.7) 10^3/uL 0.11 Absolute Basophils (0.0-0.2) 10^3/uL 0.03 Sodium (136-145) mmol/L 140 Potassium (3.5-5.1) mmol/L 4.1 Chloride (98-107) mmol/L 106 Carbon Dioxide (20.0-31.0) mmol/L 26.7 Anion Gap (3-11) mmol/L 7.3 BUN (9-23) mg/dL 8 L Creatinine (0.55-1.02) mg/dL 0.5 L Est GFR (CKD-EPI 2020) (mL/min/1.73m2) 124.08 Glucose (74-106) mg/dL 207 H Calcium (8.3-10.6) mg/dL 8.5 Magnesium (1.6-2.6) mg/dL 2.1 Total Bilirubin (0.2-1.2) mg/dL 0.30 AST (<34) U/L 16 ALT (10-49) U/L 12 Alkaline Phosphatase (46-116) U/L 126 H Troponin I (<35) ng/L 5 7 NT-Pro-B Natriuret Pep (<300) pg/mL 245 Total Protein (5.7-8.2) g/dL 7.3 Albumin (3.4-5.0) g/dL 4.4 Urine Color (Yellow) Yellow Urine Clarity (Clear) Clear Urine pH (5-8) 6.5 Ur Specific [place] (1.005-1.025) 1.015 Urine Protein (Neg-Trace) mg/dL Negative Urine Ketones (Negative) mg/dL Negative Urine Blood (Negative) Negative Urine Nitrite (Negative) Negative Urine Bilirubin (Negative) Negative Urine Urobilinogen (Up to 0.2) mg/dL 1.0 H Ur Leukocyte Esterase (Negative) Negative Urine RBC (0-2) HPF 3-5 H Urine WBC (0-5) HPF 0-2 Ur Epithelial Cells (Negative) HPF Moderate Urine Crystals (Negative) HPF Negative Urine Bacteria (Negative) HPF Moderate Urine Casts (Negative) LPF Negative Urine Mucus (Negative) Negative Ur Culture Indicated? No Urine Glucose (Negative) mg/dL >=1000 H Radiology: PROCEDURE INFORMATION: Exam: XR Chest Exam date and time: 08/30/2025 8:46 PM Age: 80 years old Clinical indication: Other: [place] TECHNIQUE: Imaging protocol: Radiologic exam of the chest. Views: 1 view. COMPARISON: CT CHEST/ABD/PEL W 02/26/2025 11:38 PM FINDINGS: Lungs: Calcified granuloma identified in the left lower lobe. Pleural spaces: Unremarkable. No pleural effusion. No pneumothorax. Heart/Mediastinum: Unremarkable. No cardiomegaly. Bones/joints: Unremarkable. IMPRESSION: No acute findings. Thank you for allowing us to participate in the care of your patient. Related Data Home Medications ?Medication ?Instructions ?Recorded ?Confirmed manual wheelchair #1 ea 07/09/23 08/30/25 aspirin 81 mg chewable tablet 81 mg PO DAILY 11/13/23 08/30/25 varenicline tartrate 0.5 mg (11)-1 See Rx Instructions PO PER PKG DIR 04/20/25 08/30/25 mg (42) tablets in a dose pack #1 pkg varenicline tartrate 1 mg tablet 1 mg PO BID #56 tabs 04/20/25 08/30/25 trazodone 50 mg tablet 50 mg PO QHS PRN sleep #90 tabs 06/28/25 08/30/25 fluoxetine 20 mg capsule 20 mg PO DAILY #30 caps 07/30/25 08/30/25 atorvastatin 40 mg tablet 40 mg PO DAILY #90 tabs 08/03/25 08/30/25 acetaminophen 500 mg tablet 500 mg PO Q6H PRN pain #60 tabs 08/16/25 08/30/25 (Tylenol Extra Strength) ferrous sulfate 325 mg (65 mg 325 mg PO DAILY #60 tabs 08/16/25 08/30/25 iron) tablet (iron) losartan 50 mg tablet 50 mg PO DAILY #90 tabs 08/16/25 08/30/25 melatonin 3 mg tablet 6 mg (2 x 3 mg) PO HS PRN sleep 08/16/25 08/30/25 #90 tabs thiamine HCl (vitamin B1) 100 mg 100 mg PO DAILY #60 tabs 08/16/25 08/30/25 tablet Previous Rx's ?Medication ?Instructions ?Recorded manual wheelchair #1 ea 07/09/23 varenicline tartrate 0.5 mg (11)-1 See Rx Instructions PO PER PKG DIR 04/20/25 mg (42) tablets in a dose pack #1 pkg varenicline tartrate 1 mg tablet 1 mg PO BID #56 tabs 04/20/25 trazodone 50 mg tablet 50 mg PO QHS PRN sleep #90 tabs 06/28/25 fluoxetine 20 mg capsule 20 mg PO DAILY #30 caps 07/30/25 atorvastatin 40 mg tablet 40 mg PO DAILY #90 tabs 08/03/25 acetaminophen 500 mg tablet 500 mg PO Q6H PRN pain #60 tabs 08/16/25 (Tylenol Extra Strength) ferrous sulfate 325 mg (65 mg 325 mg PO DAILY #60 tabs 08/16/25 iron) tablet (iron) losartan 50 mg tablet 50 mg PO DAILY #90 tabs 08/16/25 melatonin 3 mg tablet 6 mg (2 x 3 mg) PO HS PRN sleep 08/16/25 #90 tabs thiamine HCl (vitamin B1) 100 mg 100 mg PO DAILY #60 tabs 08/16/25 tablet Allergies Allergy/AdvReac Type Severity Reaction Status Date / Time No Known Allergies Allergy Verified 08/30/25 20:37 General Stated Complaint: RespSymp GARY: 3 Course Vital Signs Vital signs: Vital Signs Temperature 36.4 C 08/30/25 20:29 Pulse 82 08/30/25 20:29 Respiratory Rate 22 08/30/25 20:29 Blood Pressure 128/60 08/30/25 20:29 Pulse Oximetry 93 08/30/25 20:29 Temperature 36.4 C 08/30/25 20:37 Pulse 82 08/30/25 20:37 Respiratory Rate 22 08/30/25 20:37 Respiratory Effort Short of Breath, Labored 08/30/25 20:47 Respiratory Depth Deep 08/30/25 20:47 Blood Pressure 128/60 08/30/25 20:37 Pulse Oximetry 93 08/30/25 20:37 Pain Level 0 08/30/25 20:37 Lab/Test Results Lab/Test Results: Laboratory Tests Range/Units 08/30/25 08/30/25 21:30 21:53 WBC (4.4-10.8) 10^3/uL 4.61 RBC (3.93-5.22) 10^6/uL 3.28 L Hgb (11.2-15.7) g/dL 8.3 L Hct (36.0-46.0) % 28.6 L MCV (80-95) fL 87 MCH (27.0-33.0) pg 25.3 L MCHC (32.0-36.0) % 29.0 L RDW (11.7-14.6) % 14.4 Plt Count (130-400) 10^3/uL 195 MPV (8.0-11.0) fL 11.2 H Immature Gran % % 0.4 Neutrophils % % 67.6 Lymphocytes % % 22.6 Monocytes % % 6.3 Eosinophils % % 2.4 Basophils % % 0.7 Nucleated RBC % (0.0-0.3) % 0.0 Absolute Neutrophils (1.2-6.7) 10^3/uL 3.12 Absolute Lymphocytes (1.2-3.4) 10^3/uL 1.04 L Absolute Monocytes (0.1-0.8) 10^3/uL 0.29 Absolute Eosinophils (0.0-0.7) 10^3/uL 0.11 Absolute Basophils (0.0-0.2) 10^3/uL 0.03 Sodium (136-145) mmol/L 140 Potassium (3.5-5.1) mmol/L 4.1 Chloride (98-107) mmol/L 106 Carbon Dioxide (20.0-31.0) mmol/L 26.7 Anion Gap (3-11) mmol/L 7.3 BUN (9-23) mg/dL 8 L Creatinine (0.55-1.02) mg/dL 0.5 L Est GFR (CKD-EPI 2020) (mL/min/1.73m2) 124.08 Glucose (74-106) mg/dL 207 H Calcium (8.3-10.6) mg/dL 8.5 Magnesium (1.6-2.6) mg/dL 2.1 Total Bilirubin (0.2-1.2) mg/dL 0.30 AST (<34) U/L 16 ALT (10-49) U/L 12 Alkaline Phosphatase (46-116) U/L 126 H NT-Pro-B Natriuret Pep (<300) pg/mL 245 Total Protein (5.7-8.2) g/dL 7.3 Albumin (3.4-5.0) g/dL 4.4 Urine Color (Yellow) Yellow Urine Clarity (Clear) Clear Urine pH (5-8) 6.5 Ur Specific [place] (1.005-1.025) 1.015 Urine Protein (Neg-Trace) mg/dL Negative Urine Ketones (Negative) mg/dL Negative Urine Blood (Negative) Negative Urine Nitrite (Negative) Negative Urine Bilirubin (Negative) Negative Urine Urobilinogen (Up to 0.2) mg/dL 1.0 H Ur Leukocyte Esterase (Negative) Negative Urine RBC (0-2) HPF 3-5 H Urine WBC (0-5) HPF 0-2 Ur Epithelial Cells (Negative) HPF Moderate Urine Crystals (Negative) HPF Negative Urine Bacteria (Negative) HPF Moderate Urine Casts (Negative) LPF Negative Urine Mucus (Negative) Negative Ur Culture Indicated? No Urine Glucose (Negative) mg/dL >=1000 H Medical Decision Making Quality:SDOH Health Related Social Needs: Health related social needs details The patient lives with her son who has no transportation PFSH All Active Problems (Updated 08/30/25 @ 22:48 by Ata Huang MD) Unable to ambulate (Acute) Advanced care planning/counseling discussion (Acute) Peripheral vascular disease (Chronic) Thyroid nodule (Acute) Pulmonary nodule 1 cm or greater in diameter (Acute) MDS/MPN (myelodysplastic/myeloproliferative neoplasms) (Acute ~05/2025) 05/19/25 [facility] Pulmonary nodules (Acute) Muscular deconditioning (Acute) Osteoarthritis of knees, bilateral (Acute) Enlarged thyroid (Acute) Chronic toe pain, bilateral (Acute ~01/2025) 01/29/25 [facility] Acquired bilateral foot drop (Acute ~01/2025) 01/29/25 [facility] Right hand pain (Acute) Right hand weakness (Acute) Nail dystrophy (Acute) Onychomycosis (Acute) Smoker (Acute) Diabetes mellitus with neuropathy (Acute) Stenosis of artery of both lower extremities (Acute) Atherosclerosis of artery of both lower extremities (Acute) Cellulitis (Acute) Ulcer of right foot with fat layer exposed (Acute) Ischemic ulcer of right foot (Acute) Osteoarthritis of joints of toes of both feet (Acute) Atherosclerosis (Acute) Patient has severe atherosclerosis noted throughout most of her blood vessels noted on recent MRI angio/MRI of the heart/MRI of the head/CT chest abdomen pelvis. 10/2023 Vertebral artery stenosis, asymptomatic (Acute) Left Soft tissue mass (Acute) 1.8 cm dorsal surface anterior aspect left second rib Diabetic ulcer of right great toe (Acute) 05/19/24 [facility] Vascular Surgery Visit Compression fracture of L2 lumbar vertebra (Acute) Aortic mural thrombus (Acute) Coronary artery calcification seen on CAT scan (Acute) COPD (chronic obstructive pulmonary disease) (Chronic) Mass of chest wall, right (Acute) Chronic ulcer of right great toe (Acute) Stroke (Chronic) Salicylate poisoning (Acute) Tobacco abuse (Chronic) Hypoalbuminemia (Acute) Right lower lobe pneumonia (Acute) Tracheal stenosis (Acute) Multinodular goiter (Acute) Atherosclerosis of aorta (Chronic) Rhabdomyolysis (Acute) Pulmonary edema (Acute) Encephalopathy acute (Acute) Iron deficiency (Chronic) Pneumonia (Acute) Acute on chronic anemia (Acute) NSTEMI (non-ST elevated myocardial infarction) (Acute) 10/2023 Fracture of fibula, distal, right, closed (Acute ~07/09/23) Depression (Acute 05/31/15) Spinal stenosis, unspecified region other than cervical (Chronic 10/26/11) Smoker unmotivated to quit (Acute 05/31/15) Pure hypercholesterolemia (Acute 02/27/17) Iron deficiency anemia due to chronic blood loss (Chronic 03/16/14) due to NSAID, ASA, ? lesion Insomnia (Acute 02/27/17) Essential hypertension (Acute 01/26/13) Diabetes mellitus (Chronic 01/26/13) Radicular pain of right lower extremity (Acute) Chronic low back pain with right-sided sciatica (Acute) Medical History Acute anemia Chronic GI bleeding (07/18/15) Coagulopathy Continuous opioid dependence (10/21/13) Hypokalemia Hypoprothrombinemia Lactic acidosis Metabolic acidosis, increased anion gap Surgical History Abdominal hysterectomy Cholecystectomy Family History Father Myocardial infarction Grandfather Essential hypertension Social History Smoking/Tobacco Use Status: Current every day Tobacco Type: cigarettes Quit status: not considering quitting Smoking risk assessment performed?: Yes Alcohol Intake: former Details: alcholic quit 1977 Drug use: Never Substance use type: does not use Adopted: No Caregiver/Support person: Yes Foster care: No Household members: other Details: self and son Housing: apartment Number of Children: 1 number of grandchildren: 0 Communication Needs: None 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
[2025-08-30 22:24] LABS: Troponin I 5 ng/L (<35)
[2025-08-30 23:28] LABS: Troponin I 7 ng/L (<35)
[2025-08-31] VITALS (8 sets, daily range): BP systolic 124–132; BP diastolic 50–68; PULSE 85–91; RESP 16–19; TEMP 36.7–37; O2SAT 94–97
[2025-08-31] MEDS: Melatonin 3 MG TAB 6 MG PO (00:53)
[2025-08-31] MEDS: traZODone 50 MG TAB PO ×2 (00:53→21:01)
--- NOTE | 2025-08-31 07:13 | ED.PROG_ITS ---
Date of service: 08/31/25 Time of Service: 07:13 Medical Decision Making I received signout on this 80-year-old female boarding in the emergency department as she is unable to care for herself as her care provider was recently hospitalized. At baseline patient is wheelchair-bound secondary to spinal stenosis and peripheral vascular disease. Patient is not able to perform her ADLs at home. Patient has a diet ordered her medications and care management consult. 3:50 PM I was in touch with Holly Velazquez from the hospitalist team who graciously agreed to accept the patient for hospitalization. Katherine Schmitt from care management arranged for the patient to be placed at the [facility] tomorrow. Quality:SDOH Health Related Social Needs: Health related social needs details The patient lives with her son who has no transportation Discharge Plan Disposition Patient Disposition: Admit to [facility] Discharge Details Clinical Impression: Unable to ambulate, Cough Primary Care Provider: Crescencio Smith ED Provider: Paul Cartwright [place] Meds and New Rx's Prescriptions: No Action (DME) manual wheelchair See Rx Instructions .Route .MEDSUPPLY Qty: 1 0RF Rx Instructions: As directed varenicline tartrate 0.5 mg (11)- 1 mg (42) tablets,dose pack See Rx Instructions PO PER PKG DIR Qty: 1 0RF Rx Instructions: PO PER PKG DIR varenicline tartrate 1 mg tablet 1 mg PO BID Qty: 56 0RF Rx Instructions: To begin after the starter pack is complete trazodone 50 mg tablet 50 mg PO QHS PRN (Reason: sleep) Qty: 90 1RF aspirin 81 mg tablet,chewable 81 mg PO DAILY fluoxetine 20 mg capsule 20 mg PO DAILY Qty: 30 0RF atorvastatin 40 mg tablet 40 mg PO DAILY Qty: 90 3RF Patient Comments: TAKE ONE TABLET BY MOUTH EVERY DAY melatonin 3 mg tablet 6 mg PO HS PRN (Reason: sleep) Qty: 90 3RF Rx Instructions: Take x 90 days losartan 50 mg tablet 50 mg PO DAILY Qty: 90 3RF ferrous sulfate [iron] 325 mg (65 mg iron) tablet 325 mg PO DAILY Qty: 60 3RF thiamine HCl (vitamin B1) 100 mg tablet 100 mg PO DAILY Qty: 60 3RF Rx Instructions: x 90 days acetaminophen [Tylenol Extra Strength] 500 mg tablet 500 mg PO Q6H PRN (Reason: pain) Qty: 60 3RF albuterol sulfate [Ventolin HFA] 90 mcg/actuation HFA aerosol inhaler 2 puff inhalation Q6H PRN (Reason: shortness of breath or wheezing) Qty: 8.5 6RF Incruse Ellipta 62.5 mcg/actuation blister with device 1 inh inhalation DAILY Qty: 30 6RF
[2025-08-31] MEDS: Thiamine 100 MG TAB PO (08:37)
[2025-08-31] MEDS: FLUoxetine 20 MG CAP PO (08:37)
[2025-08-31] MEDS: Varenicline 1 MG TAB PO ×2 (08:37→22:20)
[2025-08-31] MEDS: Ferrous Sulfate 325 MG TAB PO (08:37)
[2025-08-31] MEDS: Aspirin 81 MG CHEW CH (08:37)
[2025-08-31] MEDS: Losartan 25 MG TAB 50 MG PO (08:38)
--- NOTE | 2025-08-31 10:12 | IN_ITS ---
PT Notes Visit Reasons: cough / SOB Physical Therapy Inpatient Initial Evaluation Date: 08/31/2025 Referring Doctor: PT Orders: PT CONSULT: Paul Cartwright MD Precautions: Standard. Activity as tolerated. Wheelchair-bound. Repeated falls. Patient Profile/Admitting Diagnosis: Patient is an 80-year-old female at risk for failure to thrive at home. She has been wheelchair-bound for over 20 years now and was referred to physical therapy for mobility assessment and safe discharge recommendation as her only caregiver has been acutely hospitalized. PMHX: All Active Problems (Updated 08/30/25 @ 22:48 by Ata Huang MD) Unable to ambulate (Acute) Advanced care planning/counseling discussion (Acute) Peripheral vascular disease (Chronic) Thyroid nodule (Acute) Pulmonary nodule 1 cm or greater in diameter (Acute) MDS/MPN (myelodysplastic/myeloproliferative neoplasms) (Acute ~05/2025) 05/19/25 [facility] Hem/Onc Pulmonary nodules (Acute) Muscular deconditioning (Acute) Osteoarthritis of knees, bilateral (Acute) Enlarged thyroid (Acute) Chronic toe pain, bilateral (Acute ~01/2025) 01/29/25 [facility] Pod[facility] Acquired bilateral foot drop (Acute ~01/2025) 01/29/25 We[facility] Podiatry Right hand pain (Acute) Right hand weakness (Acute) Nail dystrophy (Acute) Onychomycosis (Acute) Smoker (Acute) Diabetes mellitus with neuropathy (Acute) Stenosis of artery of both lower extremities (Acute) Atherosclerosis of artery of both lower extremities (Acute) Cellulitis (Acute) Ulcer of right foot with fat layer exposed (Acute) Ischemic ulcer of right foot (Acute) Osteoarthritis of joints of toes of both feet (Acute) Atherosclerosis (Acute) Patient has severe atherosclerosis noted throughout most of her blood vessels noted on recent MRI angio/MRI of the heart/MRI of the head/CT chest abdomen pelvis. 10/2023 Vertebral artery stenosis, asymptomatic (Acute) LeftSoft tissue mass (Acute) 1.8 cm dorsal surface anterior aspect left second rib Diabetic ulcer of right great toe (Acute) 05/19/24 [facility] Vascular Surgery Visit Compression fracture of L2 lumbar vertebra (Acute) Aortic mural thrombus (Acute) Coronary artery calcification seen on CAT scan (Acute) COPD (chronic obstructive pulmonary disease) (Chronic) Mass of chest wall, right (Acute) Chronic ulcer of right great toe (Acute) Stroke (Chronic) Salicylate poisoning (Acute) Tobacco abuse (Chronic) Hypoalbuminemia (Acute) Right lower lobe pneumonia (Acute) Tracheal stenosis (Acute) Multinodular goiter (Acute) Atherosclerosis of aorta (Chronic) Rhabdomyolysis (Acute) Pulmonary edema (Acute) Encephalopathy acute (Acute) Iron deficiency (Chronic) Pneumonia (Acute) Acute on chronic anemia (Acute) NSTEMI (non-ST elevated myocardial infarction) (Acute) 10/2023Fracture of fibula, distal, right, closed (Acute ~07/09/23) Depression (Acute 05/31/15) Spinal stenosis, unspecified region other than cervical (Chronic 10/26/11) Smoker unmotivated to quit (Acute 05/31/15) Pure hypercholesterolemia (Acute 02/27/17) Iron deficiency anemia due to chronic blood loss (Chronic 03/16/14) due to NSAID, ASA, ? lesion Insomnia (Acute 02/27/17) Essential hypertension (Acute 01/26/13) Diabetes mellitus (Chronic 01/26/13) Radicular pain of right lower extremity (Acute) Chronic low back pain with right-sided sciatica (Acute) Medical History Acute anemia Chronic GI bleeding (07/18/15) Coagulopathy Continuous opioid dependence (10/21/13) Hypokalemia Hypoprothrombinemia Lactic acidosis Metabolic acidosis, increased anion gap Surgical History Abdominal hysterectomy Cholecystectomy Social History/Home Situation: Son is the primary caregiver who provideds physical assiatnce with all her transfers, sets up her shower, and her grooming materials at home. He also is in charge of grocery shopping Equipment Owned/DME: Motorized wheelchair, regular wheelchair, grab bars, ramp to get in Subjective: I do not want my son to go to [facility], I hope that he gets sent to [facility]. I want to see him before he goes. Patient expressed significant concern about her not being able to manage at home safely and is agreeable with short-term placement if her insurance will cover it. She is worreid as she has already fallen 5x in the past year. Objective: General Observation: Anxious (about which hospital her son is going to be sent) Mental Status: Alert and oriented as to person, place, time, and purpose. Able to pay attention, focus, and respond appropriately. Pain: 7-8/10 on the R knee (chronic from arthritis) Vital Signs: Closely monitored by nursing staff ROM: Right Upper Extremity: Shoulder Flexion WFL. Shoulder abduction WFL. Elbow flexion WFL. Wrist flexion WFL. Functional opening and closing of hand WFL. Left Upper Extremity: Shoulder Flexion WFL. Shoulder abduction WFL. Elbow flexion WFL. Wrist flexion WFL. Functional opening and closing of hand WFL. Right Lower Extremity: Hip flexion allowed up to about 100 degrees. Hip abduction WFL. Knee flexion 20 degrees to 90 degrees. Knee extension -20 degrees. Ankle dorsiflexion absent to. Ankle plantarflexion WFL. Left Lower Extremity: Hip flexion WFL. Hip abduction WFL. Knee flexion WFL. Ankle dorsiflexion WFL. Ankle plantarflexion WFL. Strength: Right Upper Extremity: Shoulder flexors 4-/5. Shoulder abductors 4-/5. Elbow flexors 4-/5. Elbow extensors 4-/5. Equine Pharmacology Technician weak but functional. Left Upper Extremity: Shoulder flexors 4-/5. Shoulder abductors 4-/5. Elbow flexors 4-/5. Elbow extensors 4-/5. Equine Pharmacology Technician strong. Right Lower Extremity: Hip flexors 3-/5. Hip abductors 4-/5. Knee flexors 3-/5. Knee extensors 3-/5. Ankle dorsiflexors 2-/5. Ankle plantarflexors 3/5. Left Lower Extremity: Hip flexors 4-/5. Hip abductors 4-/5. Knee flexors 4-/5. Knee extensors 4-/5. Ankle dorsiflexors 4-/5. Ankle plantarflexors 4-/5. Bed Mobility/Transfers: Minimal cueing provided for use of B hands as needed for support, movement sequence, AD management, and posture to reduce fall risk and minimize pain report Rolling stand by assist Supine to sit stand by assist with HOB at about 30 degrees Sit to supine stand by assist with HOB at about 30 degrees Sit to squat moderate assist with L LE leading and with B hands holding onto wheelchair armrests Stand to sit moderate assist with L LE leading and with B hands holding onto wheelchair armrests Gait: Unable. Patient has been wheelchair-bound for over 20 years now. Balance: Static Sitting: Normal Dynamic Sitting: Normal Static Standing: Unable Dynamic Standing: Unable Special Tests: Mobility Limitations Standardized Measure [facility] AM-PAC 6 clicks Basic Mobility Inpatient Short Form: Raw Score: 12 CMS Score: 69% deficit Informed Consent/Education: Patient was instructed in purpose of PT consult and plan of care. Agreeable to proceed with established PT POC to achieve personal goals. Assessment: Patient has chronically relied on son for all transfers, cooking, grocery shopping, set up for showering, and set up for grooming for over 20 years now. She has R-sided hemiparesis and worsening arthritis on the R knee that has limited her ability to move. She has had repeated falls at home 5x in the past 12 months and will require continued assistance with aforementioned ADLs. Son has been acutely hospitalized and will not be available to provide the usual he lp patient has been receiving from him. Patient therefore has low chance of safely thriving at home and may need short-term SNF until her caregiver fully recovers. Patient presents with clinical signs and symptoms consistent with current/admitting diagnoses that have resulted to mobility limitations, gait instability, generalized weakness, and overall ADL decline as demonstrated by the following impairment level findings: 1. Decreased strength to [] [] major muscle groups 2. Impaired sitting/standing balance 3. Impaired activity tolerance 4. Limitation of joint range of motion in [] 5. Shortness of breath 6. Swelling Impairments are contributing to the following functional limitations: 1. Decline in bed mobility skills 2. Decline in transfer skills 3. Difficulty with ambulation without assistive device and physical assistance 4. Increased completion time for mobility ADL performance 5. Increased risk for falls 6. Difficulty with managing steps alone safely Patient is assessed as a 47003 moderate complexity based on the following: History: 80-year-old female with with past medical history as indicated above Examination: Demonstrable impairment in strength, balance, and mobility level with underlying impairments and functional limitations as exhibited above as well as deficit score of 69% utilizing the [facility] Mobility Inpatient Short Form Presentation: Evolving Decision Makin moderate complexity Goals: Goals X1 week while here on admission or at SNF 1. Supine-Sit independent 2. Sit-Supine independent 3. Sit-squat independent 4. Squat-Sit independent with 5. Bed-Chair with L LE leading independent 6. Chair-Bed with L LE leading modified independent 7. Hold static squat position for 3 minutes with B hands pushing down on B wheelchair arms or edge of bed Plan of Care/Treatment Plan: 1-2x/day, 7 days/week x 1 week. Plan of care has been reviewed with the EGG WORKER providing the service under Physical Therapy direction. Initiate Physical Therapy intervention for pain management as needed, strengthening, bed mobility, transfers, gait, stairs, balance training, and use of assistive device. DISCHARGE RECOMMENDATIONS: Short-term SNF placement vs LTC TREATMENT CODE/TIME: 18027 x 20 minutes for 1 unit, 71801 x 12 minutes for 1 unit ((10:12-10:44). Thank you for the opportunity to participate in the care of this patient. Nicole Rodriguez PT, DPT, CLT [facility] [place], [place]
[2025-08-31] MEDS: Acetaminophen 325 MG TAB 650 MG PO (15:26)
--- NOTE | 2025-08-31 17:08 | W.PC.ACHO ---
Registration Status: REG ER Primary Language: Preferred Language: Estonian ED Information & Data Chief Complaint RespSymp 08/30/25 22:25 Triage Note pt with c/o cough and sob pt 08/30/25 20:29 states onset last year Medical / Surgical History (Last Reviewed 08/10/25 @ 13:08 by Mary Lou Sterling RN) Acute anemia Metabolic acidosis, increased anion gap Lactic acidosis Hypokalemia Coagulopathy Hypoprothrombinemia Continuous opioid dependence (10/21/13) Chronic GI bleeding (07/18/15) (Last Reviewed 08/10/25 @ 13:08 by Mary Lou Sterling RN) Abdominal hysterectomy Cholecystectomy Most Recent Vital Signs Temperature 36.4 C 08/30/25 20:37 Pulse 85 08/31/25 08:46 Respiratory Rate 18 08/31/25 08:46 Respiratory Effort Normal, Non-Labored 08/31/25 08:46 Respiratory Depth Normal 08/31/25 08:46 Respiratory Pattern Normal 08/31/25 08:46 Blood Pressure 128/58 L 08/31/25 08:46 Blood Pressure Mean 81 08/31/25 08:46 Blood Pressure Position Sitting 08/31/25 08:46 Pulse Oximetry 95 08/31/25 08:46 Oxygen Delivery Method Room Air 08/31/25 08:46 Oxygen Flow Rate 0 08/31/25 08:46 Pain Level 0 08/30/25 20:37 Allergies No Known Allergies Allergy (Verified 08/30/25 20:37) Active Medications Generic Name Dose Route Start Last Admin Trade Name Freq PRN Reason Stop Dose Admin Aspirin 81 mg 08/31/25 08:30 08/31/25 08:37 Aspirin 81 Mg Chew CH 81 mg DAILY SALINAS Administration Ferrous Sulfate 325 mg 08/31/25 08:30 08/31/25 08:37 Ferrous Sulfate 325 Mg Tab PO 325 mg DAILY SALINAS Administration Fluoxetine HCl 20 mg 08/31/25 08:30 08/31/25 08:37 Fluoxetine 20 Mg Cap PO 20 mg DAILY SALINAS Administration Losartan Potassium 50 mg 08/31/25 08:30 08/31/25 08:38 Losartan 25 Mg Tab PO 50 mg DAILY SALINAS Administration Thiamine HCl 100 mg 08/31/25 08:30 08/31/25 08:37 Thiamine 100 Mg Tab PO 100 mg DAILY SALINAS Administration Varenicline 1 mg 08/31/25 08:30 08/31/25 08:37 Varenicline 1 Mg Tab PO 1 mg BID SALINAS Administration Diagnostics 08/30/25 08/30/25 08/30/25 Range/Units 23:12 21:53 21:30 WBC 4.61 (4.4-10.8) 10^3/uL RBC 3.28 L (3.93-5.22) 10^6/uL Hgb 8.3 L (11.2-15.7) g/dL Hct 28.6 L (36.0-46.0) % MCV 87 (80-95) fL MCH 25.3 L (27.0-33.0) pg MCHC 29.0 L (32.0-36.0) % RDW 14.4 (11.7-14.6) % Plt Count 195 (130-400) 10^3/uL MPV 11.2 H (8.0-11.0) fL Immature Gran % 0.4 % Neutrophils % 67.6 % Lymphocytes % 22.6 % Monocytes % 6.3 % Eosinophils % 2.4 % Basophils % 0.7 % Nucleated RBC % 0.0 (0.0-0.3) % Absolute Neutrophils 3.12 (1.2-6.7) 10^3/uL Absolute Lymphocytes 1.04 L (1.2-3.4) 10^3/uL Absolute Monocytes 0.29 (0.1-0.8) 10^3/uL Absolute Eosinophils 0.11 (0.0-0.7) 10^3/uL Absolute Basophils 0.03 (0.0-0.2) 10^3/uL Sodium 140 (136-145) mmol/L Potassium 4.1 (3.5-5.1) mmol/L Chloride 106 (98-107) mmol/L Carbon Dioxide 26.7 (20.0-31.0) mmol/L Anion Gap 7.3 (3-11) mmol/L BUN 8 L (9-23) mg/dL Creatinine 0.5 L (0.55-1.02) mg/dL Est GFR (CKD-EPI 2020) 124.08 (mL/min/1.73m2) Glucose 207 H (74-106) mg/dL Calcium 8.5 (8.3-10.6) mg/dL Magnesium 2.1 (1.6-2.6) mg/dL Total Bilirubin 0.30 (0.2-1.2) mg/dL AST 16 (<34) U/L ALT 12 (10-49) U/L Alkaline Phosphatase 126 H (46-116) U/L Troponin I 7 5 (<35) ng/L NT-Pro-B Natriuret Pep 245 (<300) pg/mL Total Protein 7.3 (5.7-8.2) g/dL Albumin 4.4 (3.4-5.0) g/dL Urine Color Yellow (Yellow) Urine Clarity Clear (Clear) Urine pH 6.5 (5-8) Ur Specific [place] 1.015 (1.005-1.025) Urine Protein Negative (Neg-Trace) mg/dL Urine Ketones Negative (Negative) mg/dL Urine Blood Negative (Negative) Urine Nitrite Negative (Negative) Urine Bilirubin Negative (Negative) Urine Urobilinogen 1.0 H (Up to 0.2) mg/dL Ur Leukocyte Esterase Negative (Negative) Urine RBC 3-5 H (0-2) HPF Urine WBC 0-2 (0-5) HPF Ur Epithelial Cells Moderate (Negative) HPF Urine Crystals Negative (Negative) HPF Urine Bacteria Moderate (Negative) HPF Urine Casts Negative (Negative) LPF Urine Mucus Negative (Negative) Ur Culture Indicated? No Urine Glucose >=1000 H (Negative) mg/dL Intake and Output - 24 Hour Total 08/30/25 20:11 thru 08/31/25 01:25 Output Total 250 Balance -250 Weight 63.049 kg Output: Urine 250 Falls Risk Assessment History of Falls Previous History 08/30/25 20:47 Contributing Factors Impairments 08/30/25 20:47 Ambulatory Aids Uses ambulatory device + 08/30/25 20:47 Gait Evaluation W/any additional score 08/30/25 20:47 Cognition No cognitive impairment 08/30/25 20:47 Fall Total Score 68 08/30/25 20:47 Level of Risk High Risk 08/30/25 20:47 Problems (Last Reviewed 08/10/25 @ 13:08 by Mary Lou Sterling RN) Unable to ambulate (Acute) Attestation Statement: By documenting the first initial, last name, and credentials of the reporting nurse below, both parties acknowledge that all relevant information regarding the patient handoff has been communicated, and that all questions have been addressed to ensure continuity and safety of care. Additional Patient Information/Comments: Report Received From: Leila BONILLA in ED @ [id number]
--- NOTE | 2025-08-31 18:21 | PDOC.CMIN ---
Date of service: 08/31/25 Time of Service: 18:21 Care Management Initial Assmt Initial Assessment Reason for Hospitalization: weakness Functional Status/Living Situation Patient Presentation: CM met Stephanie in the ED this morning; there was a CM consult to help support Kaleigh, as her 24/7 caregiver (son) is admitted to the hospital and will need to transfer for further care. Kaleigh was sitting up in the bed, and was pleasant and easily engaged in conversation. She reported that she was worried about her son, as she wasn't sure where she was. CM confirmed that Kaleigh is on her son, Luis' HIPAA, and informed her that he is admitted, awaiting a bed at [facility]. Kaleigh stated that Luis cares for her at home, and does a wonderful job. She is wheelchair bound, and needs help with transfers at times, although she can transfer independently sometimes, as well as food preparation, errands and other support. She stated that they have been through a lot together and are very close. CM discussed that due to the level of care Kaleigh needs at home, it would not be safe for her to return home alone. Kaleigh agreed to going to a facility for respite, using her [facility] long winder tender JENNIFER benefit. CM sent referrals to facilities for respite. [facility] was able to offer a bed for her tomorrow. She was admitted today for observation, awaiting a safe discharge plan. CM communicated with her son, who is happy about the plan. CM will continue to follow. Town of Residence: [facility] Resides with: Child (son, Luis) Significant Other/Family: Local Caregiver/Guardian: sonLuis, is 24/7 caregiver, paid through [employer] Supports: Luis, son Olivia, adopted daughter Employment Status: Disabled Instrumental Activities of Daily Living (ADLs): Requires support with Dishes/food prep, Groceries, Heat/Utilities, Laundry and Transportation Activities/Hobbies/SocialSupport: Kaleigh likes to watch TV (game shows, cooking shows), and spend time with her son. Medications Medication Management: No Issues/Barriers identified Physical Functioning/Mobility Assistive Device: 2 electric w/c's, manual w/c, grab bars Advance Directives Advance Directives: Do you have an Advance Directive: N 06/22/25, 12:41 AD On File at [facility]: N 06/22/25, 12:41 Date Asked 08/30/25 08/30/25, 20:15 AD Date Reviewed COLST On File at [facility] COLST Date Scanned Code Status Resuscitation Status Full Code Insurance Coverage/Financial Issues Insurance: [facility] Care Team Visit Care Team Role Provider Type Crescencio Smith APRN Primary Care Provider NURSE PRACTITIONER Miriam Crane Other Providers DIGITAL ACCOUNT EXECUTIVE Stephanie Cloud Other Providers DIGITAL ACCOUNT EXECUTIVE Katherine Schmitt Other Providers DIGITAL ACCOUNT EXECUTIVE InPatient Jonathan Cardoso Other Providers OTHER Mary Jane Sumner RN Other Providers DIGITAL ACCOUNT EXECUTIVE Leni Johnson Other Providers DIGITAL ACCOUNT EXECUTIVE Paul aCrtwright MD Emergency Provider [facility] STAFF PHYSICIAN Paul Randhawa Admit Provider [facility] STAFF PHYSICIAN Attending Provider Discharge Potential Discharge Needs: Other (coordinated safe discharge) Anticipated Barriers to Discharge: Bed availability Patient/Family Education Needs: Review discharge instructions, discuss Ask Me Three Transportation: RCT RCT Transportation: Wheel chair van Plan: Kaleigh will transfer to the [facility] tomorrow, for respite care while her son, Luis, is taking care of his health. She will transport via RCT w/c van, coordinated by CM. She will follow up with her PCP and discharge plan of care, and will return to her son's care once he is medically stable and able to care for her. CM will continue to follow. Social Determinants of Health Screening Will the Patient Participate in the Screening?: Declined to provide PFSH All Active Problems (Updated 08/31/25 @ 18:27 by Holly Velazquez NP) Hyperlipidemia (Acute) Hypertension (Chronic) Coronary artery disease (Chronic) Chronic cough (Acute) Chronic anemia (Acute) Unable to care for self (Acute) Cough (Acute) Unable to ambulate (Acute) Advanced care planning/counseling discussion (Acute) Peripheral vascular disease (Chronic) Thyroid nodule (Acute) Pulmonary nodule 1 cm or greater in diameter (Acute) MDS/MPN (myelodysplastic/myeloproliferative neoplasms) (Acute ~05/2025) 05/19/25 [facility] Hem/Onc Pulmonary nodules (Acute) Muscular deconditioning (Acute) Osteoarthritis of knees, bilateral (Acute) Enlarged thyroid (Acute) Chronic toe pain, bilateral (Acute ~01/2025) 01/29/25 Weeks Podiatry Acquired bilateral foot drop (Acute ~01/2025) 01/29/25 Weeks Podiatry Right hand pain (Acute) Right hand weakness (Acute) Nail dystrophy (Acute) Onychomycosis (Acute) Smoker (Acute) Diabetes mellitus with neuropathy (Acute) Stenosis of artery of both lower extremities (Acute) Atherosclerosis of artery of both lower extremities (Acute) Cellulitis (Acute) Ulcer of right foot with fat layer exposed (Acute) Ischemic ulcer of right foot (Acute) Osteoarthritis of joints of toes of both feet (Acute) Atherosclerosis (Acute) Patient has severe atherosclerosis noted throughout most of her blood vessels noted on recent MRI angio/MRI of the heart/MRI of the head/CT chest abdomen pelvis. 10/2023 Vertebral artery stenosis, asymptomatic (Acute) Left Soft tissue mass (Acute) 1.8 cm dorsal surface anterior aspect left second rib Diabetic ulcer of right great toe (Acute) 05/19/24 [facility] Vascular Surgery Visit Compression fracture of L2 lumbar vertebra (Acute) Aortic mural thrombus (Acute) Coronary artery calcification seen on CAT scan (Acute) COPD (chronic obstructive pulmonary disease) (Chronic) Mass of chest wall, right (Acute) Chronic ulcer of right great toe (Acute) Stroke (Chronic) Salicylate poisoning (Acute) Tobacco abuse (Chronic) Hypoalbuminemia (Acute) Right lower lobe pneumonia (Acute) Tracheal stenosis (Acute) Multinodular goiter (Acute) Atherosclerosis of aorta (Chronic) Rhabdomyolysis (Acute) Pulmonary edema (Acute) Encephalopathy acute (Acute) Iron deficiency (Chronic) Pneumonia (Acute) Acute on chronic anemia (Acute) NSTEMI (non-ST elevated myocardial infarction) (Acute) 10/2023 Fracture of fibula, distal, right, closed (Acute ~07/09/23) Depression (Acute 05/31/15) Spinal stenosis, unspecified region other than cervical (Chronic 10/26/11) Smoker unmotivated to quit (Acute 05/31/15) Pure hypercholesterolemia (Acute 02/27/17) Iron deficiency anemia due to chronic blood loss (Chronic 03/16/14) due to NSAID, ASA, ? lesion Insomnia (Acute 02/27/17) Essential hypertension (Acute 01/26/13) Diabetes mellitus (Chronic 01/26/13) Radicular pain of right lower extremity (Acute) Chronic low back pain with right-sided sciatica (Acute) Medical History Acute anemia Chronic GI bleeding (07/18/15) Coagulopathy Continuous opioid dependence (10/21/13) Hypokalemia Hypoprothrombinemia Lactic acidosis Metabolic acidosis, increased anion gap Surgical History Abdominal hysterectomy Cholecystectomy Family History Father Myocardial infarction Grandfather Essential hypertension Social History Smoking/Tobacco Use Status: Current every day Tobacco Type: cigarettes Quit status: not considering quitting Smoking risk assessment performed?: Yes Alcohol Intake: former Details: alcholic quit 1977 Drug use: Never Substance use type: does not use Adopted: No Caregiver/Support person: Yes Foster care: No Household members: other Details: self and son Housing: apartment Number of Children: 1 number of grandchildren: 0 Communication Needs: None 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
--- NOTE | 2025-08-31 18:23 | W.PM.HP.N ---
Date of service: 08/31/25 Time of Service: 18:23 Assessment and Plan Assessment and plan (1) Unable to ambulate: Status: Acute Assessment and plan: Chronic wheelchair dependence from spinal stenosis and PVD; unable to perform transfers or ADLs. Caregiver (son) hospitalized; patient lacks support. Medically stable but unsafe for discharge home. Plan: ? Admit for placement and safe disposition. ? Care management consulted?[facility] arranged for next day. ? Continue ordered diet and home medications. (2) Unable to care for self: Status: Acute Assessment and plan: Chronic wheelchair dependence from spinal stenosis and PVD; unable to perform transfers or ADLs. Caregiver (son) hospitalized; patient lacks support. Medically stable but unsafe for discharge home. Plan: ? Admit for placement and safe disposition. ? Care management consulted?[facility] bed arranged for next day. ? Continue ordered diet and home medications. (3) Chronic anemia: Status: Acute Assessment and plan: Hgb 8.3, consistent with chronic iron deficiency and chronic disease. Continue home iron supplementation; no acute intervention needed. (4) Chronic cough: Status: Acute Assessment and plan: Stable; no acute exacerbation. Continue inhalers as prescribed; monitor respiratory status. (5) COPD (chronic obstructive pulmonary disease): Status: Chronic Assessment and plan: Stable; no acute exacerbation. Continue inhalers as prescribed; monitor respiratory status. (6) Coronary artery disease: Status: Chronic Assessment and plan: Troponin negative; EKG unchanged. Continue aspirin, statin, antihypertensives. (7) Hypertension: Status: Chronic Assessment and plan: Continue home medications (losartan). (8) Hyperlipidemia: Status: Acute Assessment and plan: Continue home medications (atorvastatin). (9) Diabetes mellitus: Status: Chronic Assessment and plan: Mild hyperglycemia on arrival. Continue home regimen; sliding scale insulin as indicated per inpatient protocol. (10) Depression: Status: Acute Assessment and plan: Continue fluoxetine, trazodone PRN, melatonin PRN. (11) Insomnia: Status: Acute Assessment and plan: Current every-day smoker; patient not currently motivated to quit. Chronic exposure contributes to COPD, PVD, cardiovascular disease, and risk for malignancy. Plan: Counseling: Provided brief education on risks of continued smoking. Pharmacologic support: Patient currently on varenicline 0.5?1 mg as per prior prescription. Confirm adherence and tolerance. Follow-up: Encourage continuation of cessation efforts with primary care and pulmonology. Environmental precautions: Avoid second-hand smoke exposure for household members. History of Present Illness History of Present Illness Chief Complaint: Weakness, unable to care for self. Narrative: 80-year-old female with extensive medical history including spinal stenosis, PVD, COPD (not on home O?), CAD with prior NSTEMI, diabetes with neuropathy, chronic anemia, history of stroke, chronic foot ulcers, and significant functional decline. She is wheelchair-bound at baseline and dependent on her son for nearly all ADLs and transfers. She presents because her son/caregiver has been hospitalized, leaving her unable to care for herself. Patient denies acute symptoms. Reports a chronic cough ? 1 year with intermittent shortness of breath, followed by pulmonology. No fever, chest pain, abdominal pain, urinary symptoms, or new neurologic complaints. Screening labs and CXR obtained for medical clearance for placement. ? Hgb 8.3, Hct 28.6 (chronic anemia) ? Glucose 207 ? Creatinine 0.5 ? Electrolytes WNL ? BNP 245 ? Troponin 5 / 7 (normal) ? UA: No UTI; notable for glycosuria and modest epithelial cells/bacteria likely contaminant Chest xray - no acute findings. No evidence of acute infection, metabolic derangement, cardiac ischemia, or pulmonary process. Patient placed on observation status as no safe discharge plan. Patient accepted by the [facility] for 09/01/2025 Review of Systems Narrative: All systems reviewed and negative except as noted in the HPI: ? Chronic cough ? Intermittent shortness of breath PFSH All Active Problems (Updated 08/31/25 @ 18:27 by Holly Velazquez NP) Hyperlipidemia (Acute) Hypertension (Chronic) Coronary artery disease (Chronic) Chronic cough (Acute) Chronic anemia (Acute) Unable to care for self (Acute) Cough (Acute) Unable to ambulate (Acute) Advanced care planning/counseling discussion (Acute) Peripheral vascular disease (Chronic) Thyroid nodule (Acute) Pulmonary nodule 1 cm or greater in diameter (Acute) MDS/MPN (myelodysplastic/myeloproliferative neoplasms) (Acute ~05/2025) 05/19/25 [facility] Pulmonary nodules (Acute) Muscular deconditioning (Acute) Osteoarthritis of knees, bilateral (Acute) Enlarged thyroid (Acute) Chronic toe pain, bilateral (Acute ~01/2025) 01/29/25 [facility] Acquired bilateral foot drop (Acute ~01/2025) 01/29/25 [facility] Right hand pain (Acute) Right hand weakness (Acute) Nail dystrophy (Acute) Onychomycosis (Acute) Smoker (Acute) Diabetes mellitus with neuropathy (Acute) Stenosis of artery of both lower extremities (Acute) Atherosclerosis of artery of both lower extremities (Acute) Cellulitis (Acute) Ulcer of right foot with fat layer exposed (Acute) Ischemic ulcer of right foot (Acute) Osteoarthritis of joints of toes of both feet (Acute) Atherosclerosis (Acute) Patient has severe atherosclerosis noted throughout most of her blood vessels noted on recent MRI angio/MRI of the heart/MRI of the head/CT chest abdomen pelvis. 10/2023 Vertebral artery stenosis, asymptomatic (Acute) Left Soft tissue mass (Acute) 1.8 cm dorsal surface anterior aspect left second rib Diabetic ulcer of right great toe (Acute) 05/19/24 [facility] Vascular Surgery Visit Compression fracture of L2 lumbar vertebra (Acute) Aortic mural thrombus (Acute) Coronary artery calcification seen on CAT scan (Acute) COPD (chronic obstructive pulmonary disease) (Chronic) Mass of chest wall, right (Acute) Chronic ulcer of right great toe (Acute) Stroke (Chronic) Salicylate poisoning (Acute) Tobacco abuse (Chronic) Hypoalbuminemia (Acute) Right lower lobe pneumonia (Acute) Tracheal stenosis (Acute) Multinodular goiter (Acute) Atherosclerosis of aorta (Chronic) Rhabdomyolysis (Acute) Pulmonary edema (Acute) Encephalopathy acute (Acute) Iron deficiency (Chronic) Pneumonia (Acute) Acute on chronic anemia (Acute) NSTEMI (non-ST elevated myocardial infarction) (Acute) 10/2023 Fracture of fibula, distal, right, closed (Acute ~07/09/23) Depression (Acute 05/31/15) Spinal stenosis, unspecified region other than cervical (Chronic 10/26/11) Smoker unmotivated to quit (Acute 05/31/15) Pure hypercholesterolemia (Acute 02/27/17) Iron deficiency anemia due to chronic blood loss (Chronic 03/16/14) due to NSAID, ASA, ? lesion Insomnia (Acute 02/27/17) Essential hypertension (Acute 01/26/13) Diabetes mellitus (Chronic 01/26/13) Radicular pain of right lower extremity (Acute) Chronic low back pain with right-sided sciatica (Acute) Medical History Acute anemia Chronic GI bleeding (07/18/15) Coagulopathy Continuous opioid dependence (10/21/13) Hypokalemia Hypoprothrombinemia Lactic acidosis Metabolic acidosis, increased anion gap Surgical History Abdominal hysterectomy Cholecystectomy Family History Father Myocardial infarction Grandfather Essential hypertension Social History Smoking/Tobacco Use Status: Current every day Tobacco Type: cigarettes Quit status: not considering quitting Smoking risk assessment performed?: Yes Alcohol Intake: former Details: alcholic quit 1977 Drug use: Never Substance use type: does not use Adopted: No Caregiver/Support person: Yes Foster care: No Household members: other Details: self and son Housing: apartment Number of Children: 1 number of grandchildren: 0 Communication Needs: None 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, 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, 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 Pets and animals: Yes Pets and animals: cat(s) What is your relationship status?: How often do you talk on the phone with friends or family?: three or more times per week Panel score (0-1 are the most socially isolated patients): 1 What type of physical activity do you participate in: none Drive intox or ride w/intox road train driver: No Water heater temp set <120 deg: Yes Working smoke detector in home: Yes Fire extinguisher in home: Yes Carbon monox detector in home: Yes Do you feel safe at home: Yes Do you feel safe in your relationship?: Yes Meds Allergies and Home Medications Allergies Allergy/AdvReac Type Severity Reaction Status Date / Time No Known Allergies Allergy Verified 08/30/25 20:37 Home Medications ?Medication ?Instructions ?Recorded ?Confirmed ?Type manual wheelchair #1 ea 07/09/23 08/30/25 Rx aspirin 81 mg chewable tablet 81 mg PO DAILY 11/13/23 08/30/25 History varenicline tartrate 0.5 mg (11)-1 See Rx Instructions PO PER PKG DIR 04/20/25 08/30/25 Rx mg (42) tablets in a dose pack #1 pkg varenicline tartrate 1 mg tablet 1 mg PO BID #56 tabs 04/20/25 08/30/25 Rx trazodone 50 mg tablet 50 mg PO QHS PRN sleep #90 tabs 06/28/25 08/30/25 Rx fluoxetine 20 mg capsule 20 mg PO DAILY #30 caps 07/30/25 08/30/25 Rx atorvastatin 40 mg tablet 40 mg PO DAILY #90 tabs 08/03/25 08/30/25 Rx acetaminophen 500 mg tablet 500 mg PO Q6H PRN pain #60 tabs 08/16/25 08/30/25 Rx (Tylenol Extra Strength) ferrous sulfate 325 mg (65 mg 325 mg PO DAILY #60 tabs 08/16/25 08/30/25 Rx iron) tablet (iron) losartan 50 mg tablet 50 mg PO DAILY #90 tabs 08/16/25 08/30/25 Rx melatonin 3 mg tablet 6 mg (2 x 3 mg) PO HS PRN sleep 08/16/25 08/30/25 Rx #90 tabs thiamine HCl (vitamin B1) 100 mg 100 mg PO DAILY #60 tabs 08/16/25 08/30/25 Rx tablet albuterol sulfate 90 mcg/actuation 2 puff inhalation Q6H PRN 08/31/25 Rx aerosol inhaler (Ventolin HFA) shortness of breath or wheezing #8.5 grams umeclidinium 62.5 mcg/actuation 1 inh inhalation DAILY #30 ea 08/31/25 Rx blister powder for inhalation (Incruse Ellipta) Exam Narrative Exam Narrative: General: Elderly, frail, alert and oriented, no acute distress HEENT: NCAT, EOMI, moist mucous membranes, no icterus Neck: Supple, no meningismus, no masses Lungs: No acute respiratory distress; breath sounds without wheeze/rales noted Cardiac: RRR, no peripheral edema Abdomen: Soft, nondistended, non-tender MSK: No joint swelling or erythema Skin: No rashes or lesions Neuro: Grossly intact; no focal deficits Psych: Appropriate affect and behavior EKG: NSR, HR 90, normal axis/intervals, no acute ischemic changes Results Labs 08/30/25 21:53 08/30/25 21:53 Labs: Laboratory Results - last 24 hr 08/30/25 08/30/25 08/30/25 21:30 21:53 23:12 WBC 4.61 RBC 3.28 L Hgb 8.3 L Hct 28.6 L MCV 87 MCH 25.3 L MCHC 29.0 L RDW 14.4 Plt Count 195 MPV 11.2 H Immature Gran % 0.4 Neutrophils % 67.6 Lymphocytes % 22.6 Monocytes % 6.3 Eosinophils % 2.4 Basophils % 0.7 Nucleated RBC % 0.0 Absolute Neutrophils 3.12 Absolute Lymphocytes 1.04 L Absolute Monocytes 0.29 Absolute Eosinophils 0.11 Absolute Basophils 0.03 Sodium 140 Potassium 4.1 Chloride 106 Carbon Dioxide 26.7 Anion Gap 7.3 BUN 8 L Creatinine 0.5 L Est GFR (CKD-EPI 2020) 124.08 Glucose 207 H Calcium 8.5 Magnesium 2.1 Total Bilirubin 0.30 AST 16 ALT 12 Alkaline Phosphatase 126 H Troponin I 5 7 NT-Pro-B Natriuret Pep 245 Total Protein 7.3 Albumin 4.4 Urine Color Yellow Urine Clarity Clear Urine pH 6.5 Ur Specific [place] 1.015 Urine Protein Negative Urine Ketones Negative Urine Blood Negative Urine Nitrite Negative Urine Bilirubin Negative Urine Urobilinogen 1.0 H Ur Leukocyte Esterase Negative Urine RBC 3-5 H Urine WBC 0-2 Ur Epithelial Cells Moderate Urine Crystals Negative Urine Bacteria Moderate Urine Casts Negative Urine Mucus Negative Ur Culture Indicated? No Urine Glucose >=1000 H Last Vital Signs Temp 36.4 C 08/30/25 20:37 Pulse 85 08/31/25 08:46 Resp 18 08/31/25 08:46 BP 128/58 L 08/31/25 08:46 Pulse Ox 95 08/31/25 08:46 Time Spent Time spent with Patient: 40-54 minutes Time was spent: preparing to see the patient(eg.review tests), obtaining and/or reviewing separately otained hiistory, ordering medications,tests, procedures, referring, communicating with other health geriatric care manager, indepentently interpreting results, counseling the patient and care coordination
[2025-08-31] MEDS: Atorvastatin 40 MG TAB PO (21:01)
[2025-08-31] MEDS: Acetaminophen 500 MG TAB PO (23:29)
[2025-09-01 07:33] VITALS: BP 117/47; PULSE 78; RESP 17; TEMP 36.7; O2SAT 93
[2025-09-01] MEDS: FLUoxetine 20 MG CAP PO (08:04)
[2025-09-01] MEDS: Aspirin 81 MG CHEW PO (08:04)
[2025-09-01] MEDS: Ferrous Sulfate 325 MG TAB PO (08:06)
[2025-09-01] MEDS: Losartan 50 MG TAB PO (08:06)
[2025-09-01] MEDS: Thiamine 100 MG TAB PO (08:06)
[2025-09-01] MEDS: Umeclidinium 7 CAP INHALER 1 CAP IH (08:21)
--- NOTE | 2025-09-01 09:30 | PTTR_ITS ---
PT Notes Visit Reasons: Ambulatory Dysfunction Physical Therapy Inpatient Treatment Note Date: 09/01/2025 Precautions: Standard. Activity as tolerated. Wheelchair-bound. Repeated falls. Subjective: Relieved to know that son is headed today to [facility] and her to a local SNF for subacute rehab while her son is hospitalized. She verbalized that she could not manage at home without her son who had been her caregiver. Objective: General Observation: Seated on wheelchair. Looking forward to going to a SNF later today. Mental Status: Alert and oriented as to person, place, time, and purpose. Able to pay attention, focus, and respond appropriately. Pain: 5-6/10 in the R knee (chronic from arthritis) Vital Signs: Closely monitored by nursing staff Bed Mobility/Transfers: Minimal cueing provided for use of B hands as needed for support, movement sequence, AD management, and posture to reduce fall risk and minimize pain report Rolling stand by assist Sit to squat minimal assist with L LE leading and with B hands holding onto wheelchair armrests Stand to sit minimal assist with L LE leading and with B hands holding onto wheelchair armrests Gait: Unable. Patient has been wheelchair-bound for over 20 years now. Balance: Static Sitting: Normal Dynamic Sitting: Normal Static Standing: Unable Dynamic Standing: Unable THERA EX: Emphasized trunk flexion and correct hand/feet placement to perform chair push ups to increase B UE strength and trunk positioning for safer transfer task performance. Assessment: Patient has chronically relied on son for all transfers, cooking, grocery shopping, set up for showering, and set up for grooming for over 20 years now. She has R-sided hemiparesis and worsening arthritis on the R knee that has limited her ability to move. She has had repeated falls at home 5x in the past 12 months and will require continued assistance with aforementioned ADLs. Son has been acutely hospitalized and will not be available to provide the usual help patient has been receiving from him. Patient therefore has low chance of safely thriving at home and may need short-term SNF until her caregiver fully recovers. Plan of Care/Treatment Plan: 1-2x/day, 7 days/week x 1 week. Plan of care has been reviewed with the [facility] C[employer] SPECIALIST providing the service under Physical Therapy direction. Initiate Physical Therapy intervention for pain management as needed, strengthening, bed mobility, transfers, gait, stairs, balance training, and use of assistive device. DISCHARGE RECOMMENDATIONS: Short-term SNF placement vs LTC TREATMENT CODE/TIME: 86834 x 20 minutes for 1 unit, 01811 x 11 minutes for 1 unit ((09:30-10:01).
--- NOTE | 2025-09-01 09:57 | DSE_ITS ---
Date of service: 09/01/25 Time of Service: 09:57 DS: Diagnosis Discharge Diagnosis (1) Unable to ambulate: Status: Acute (2) Unable to care for self: Status: Acute (3) Chronic anemia: Status: Acute (4) Chronic cough: Status: Acute (5) COPD (chronic obstructive pulmonary disease): Status: Chronic (6) Coronary artery disease: Status: Chronic (7) Hypertension: Status: Chronic (8) Hyperlipidemia: Status: Acute (9) Diabetes mellitus: Status: Chronic (10) Depression: Status: Acute (11) Insomnia: Status: Acute Discharge Plan Disposition Patient Disposition: [facility]) Condition: Fair Condition: Fair Discharge Details Reason For Visit: Ambulatory Dysfunction Admit Date/Time: 08/31/25 16:20 Admit Provider: Paul Randhawa Attending Provider: Paul Randhawa Primary Care Provider: Crescencio Smith Hospital Course Hospital Course: 80-year-old female with extensive medical history including spinal stenosis, PVD, COPD, CAD, diabetes with neuropathy, chronic anemia, prior stroke, chronic foot ulcers, and significant functional decline. She is wheelchair-bound at baseline and dependent on her son for transfers and ADLs. She presented because her son/caregiver was hospitalized, leaving her without support at home. Patient denied any acute symptoms. She reports a chronic cough ? 1 year with intermittent SOB, stable and followed by pulmonology. No fever, chest pain, abdominal pain, urinary symptoms, or new neurologic complaints. Screening labs and CXR were obtained for placement clearance. * Hgb 8.3 / Hct 28.6 ? consistent with chronic anemia * Glucose 207 * Creatinine 0.5 * Electrolytes within normal limits * BNP 245 * Troponin 5 ? 7 (normal) * UA negative for infection; glycosuria noted * CXR: No acute findings * EKG: NSR, no ischemic changes No evidence of acute infection, metabolic disorder, cardiac ischemia, or pulmonary process. She remained medically stable throughout observation but was unsafe to discharge home due to inability to ambulate or perform ADLs and absence of caregiver support. Medically stable for transfer; functionally dependent. Accepted to [facility] for long-term care beginning 09/01/2025. Patient is a full code. Home Meds and New Rx's Prescriptions: Continued (DME) manual wheelchair See Rx Instructions .Route .MEDSUPPLY Qty: 1 0RF Rx Instructions: As directed varenicline tartrate 0.5 mg (11)- 1 mg (42) tablets,dose pack See Rx Instructions PO PER PKG DIR Qty: 1 0RF Rx Instructions: PO PER PKG DIR varenicline tartrate 1 mg tablet 1 mg PO BID Qty: 56 0RF Rx Instructions: To begin after the starter pack is complete trazodone 50 mg tablet 50 mg PO QHS PRN (Reason: sleep) Qty: 90 1RF aspirin 81 mg tablet,chewable 81 mg PO DAILY fluoxetine 20 mg capsule 20 mg PO DAILY Qty: 30 0RF atorvastatin 40 mg tablet 40 mg PO DAILY Qty: 90 3RF Patient Comments: TAKE ONE TABLET BY MOUTH EVERY DAY melatonin 3 mg tablet 6 mg PO HS PRN (Reason: sleep) Qty: 90 3RF Rx Instructions: Take x 90 days losartan 50 mg tablet 50 mg PO DAILY Qty: 90 3RF ferrous sulfate [iron] 325 mg (65 mg iron) tablet 325 mg PO DAILY Qty: 60 3RF thiamine HCl (vitamin B1) 100 mg tablet 100 mg PO DAILY Qty: 60 3RF Rx Instructions: x 90 days acetaminophen [Tylenol Extra Strength] 500 mg tablet 500 mg PO Q6H PRN (Reason: pain) Qty: 60 3RF albuterol sulfate [Ventolin HFA] 90 mcg/actuation HFA aerosol inhaler 2 puff inhalation Q6H PRN (Reason: shortness of breath or wheezing) Qty: 8.5 6RF Incruse Ellipta 62.5 mcg/actuation blister with device 1 inh inhalation DAILY Qty: 30 6RF Discharge Instructions Additional Instructions: Continue home medications as listed above without changes. Follow-up: * Primary care provider (within 1?2 weeks) * Pulmonology as previously scheduled * Monitor anemia and diabetes labs as needed * Smoking cessation support encouraged Activity:: Wheel chair bound Equipment/Supplies:: No Equipment Needed Diet:: As Tolerated Discharge Orders Discharge Orders: Discharge Order (Routine); Ordered 09/01/25 Ordered By: Holly Velazquez DS: Summary Time Spent with Patient providing and/or coordinating discharge services: Greater than 30 minutes Status at Discharge Functional status at discharge: wheelchair bound Overall status at discharge: patient is back to baseline Mental Status: mental status grossly normal Speech and Movement: speech and movement normal Mood: congruent mood Affect: normal affect Quality:SDOH Health Related Social Needs: Health related social needs details The patient lives with her son who has no transportation Exam Narrative Exam Narrative: General: Elderly, frail, alert and oriented, no acute distress HEENT: NCAT, moist mucous membranes Lungs: No distress; no wheezing or rales Cardiac: RRR; no edema Abdomen: Soft, non-tender MSK: No acute joint abnormalities Neuro: No focal deficits Psych: Appropriate affect Psych Mental Status: mental status grossly normal Speech and Movement: speech and movement normal Mood: congruent mood Affect: normal affect DS: Data Vitals/I&O Vitals and I&O: Vital Signs Temperature 36.7 C 09/01/25 07:33 Temperature Source Temporal Artery Scan 09/01/25 07:33 Pulse 78 09/01/25 07:33 Respiratory Rate 17 09/01/25 07:33 Respiratory Effort Normal 08/31/25 18:20 Respiratory Depth Normal 08/31/25 18:20 Respiratory Pattern Normal 08/31/25 18:20 Blood Pressure 117/47 L 09/01/25 07:33 Blood Pressure Mean 70 09/01/25 07:33 Blood Pressure Position Sitting 08/31/25 08:46 Pulse Oximetry 93 09/01/25 07:33 Oxygen Delivery Method Room Air 09/01/25 07:33 Oxygen Flow Rate 0 09/01/25 07:33 Pain Level 0 09/01/25 09:32 Intake & Output 08/31/25 08/31/25 09/01/25 11:59 23:59 11:59 Intake Total 240 / 240 Output Total 250 / 300 50 / 300 200 / 200 Balance -250 / -300 -50 / -300 40 / 40 Weight 70 kg Intake: Oral 240 / 240 Output: Urine 250 / 300 50 / 300 200 / 200 Other: Urine Color Yellow Pale Yellow Urine Appearance Clear Clear Urine Odor Normal None Comment pt voids in bedside commode. pt voided in the bedside commode Data Completed and Pending Pending Labs at Discharge: 08/30/25 08/30/25 08/30/25 21:30 21:53 23:12 WBC 4.61 RBC 3.28 L Hgb 8.3 L Hct 28.6 L MCV 87 MCH 25.3 L MCHC 29.0 L RDW 14.4 Plt Count 195 MPV 11.2 H Immature Gran % 0.4 Neutrophils % 67.6 Lymphocytes % 22.6 Monocytes % 6.3 Eosinophils % 2.4 Basophils % 0.7 Nucleated RBC % 0.0 Absolute Neutrophils 3.12 Absolute Lymphocytes 1.04 L Absolute Monocytes 0.29 Absolute Eosinophils 0.11 Absolute Basophils 0.03 Sodium 140 Potassium 4.1 Chloride 106 Carbon Dioxide 26.7 Anion Gap 7.3 BUN 8 L Creatinine 0.5 L Est GFR (CKD-EPI 2020) 124.08 Glucose 207 H Calcium 8.5 Magnesium 2.1 Total Bilirubin 0.30 AST 16 ALT 12 Alkaline Phosphatase 126 H Troponin I 5 7 NT-Pro-B Natriuret Pep 245 Total Protein 7.3 Albumin 4.4 Urine Color Yellow Urine Clarity Clear Urine pH 6.5 Ur Specific [place] 1.015 Urine Protein Negative Urine Ketones Negative Urine Blood Negative Urine Nitrite Negative Urine Bilirubin Negative Urine Urobilinogen 1.0 H Ur Leukocyte Esterase Negative Urine RBC 3-5 H Urine WBC 0-2 Ur Epithelial Cells Moderate Urine Crystals Negative Urine Bacteria Moderate Urine Casts Negative Urine Mucus Negative Ur Culture Indicated? No Urine Glucose >=1000 H PFSH All Active Problems (Updated 08/31/25 @ 18:27 by Holly Velazquez NP) Hyperlipidemia (Acute) Hypertension (Chronic) Coronary artery disease (Chronic) Chronic cough (Acute) Chronic anemia (Acute) Unable to care for self (Acute) Cough (Acute) Unable to ambulate (Acute) Advanced care planning/counseling discussion (Acute) Peripheral vascular disease (Chronic) Thyroid nodule (Acute) Pulmonary nodule 1 cm or greater in diameter (Acute) MDS/MPN (myelodysplastic/myeloproliferative neoplasms) (Acute ~05/2025) 05/19/25 Hem/Onc Pulmonary nodules (Acute) Muscular deconditioning (Acute) Osteoarthritis of knees, bilateral (Acute) Enlarged thyroid (Acute) Chronic toe pain, bilateral (Acute ~01/2025) 01/29/25 [facility] Acquired bilateral foot drop (Acute ~01/2025) 01/29/25 [facility] Right hand pain (Acute) Right hand weakness (Acute) Nail dystrophy (Acute) Onychomycosis (Acute) Smoker (Acute) Diabetes mellitus with neuropathy (Acute) Stenosis of artery of both lower extremities (Acute) Atherosclerosis of artery of both lower extremities (Acute) Cellulitis (Acute) Ulcer of right foot with fat layer exposed (Acute) Ischemic ulcer of right foot (Acute) Osteoarthritis of joints of toes of both feet (Acute) Atherosclerosis (Acute) Patient has severe atherosclerosis noted throughout most of her blood vessels noted on recent MRI angio/MRI of the heart/MRI of the head/CT chest abdomen pelvis. 10/2023 Vertebral artery stenosis, asymptomatic (Acute) Left Soft tissue mass (Acute) 1.8 cm dorsal surface anterior aspect left second rib Diabetic ulcer of right great toe (Acute) 05/19/24 [facility] Vascular Surgery Visit Compression fracture of L2 lumbar vertebra (Acute) Aortic mural thrombus (Acute) Coronary artery calcification seen on CAT scan (Acute) COPD (chronic obstructive pulmonary disease) (Chronic) Mass of chest wall, right (Acute) Chronic ulcer of right great toe (Acute) Stroke (Chronic) Salicylate poisoning (Acute) Tobacco abuse (Chronic) Hypoalbuminemia (Acute) Right lower lobe pneumonia (Acute) Tracheal stenosis (Acute) Multinodular goiter (Acute) Atherosclerosis of aorta (Chronic) Rhabdomyolysis (Acute) Pulmonary edema (Acute) Encephalopathy acute (Acute) Iron deficiency (Chronic) Pneumonia (Acute) Acute on chronic anemia (Acute) NSTEMI (non-ST elevated myocardial infarction) (Acute) 10/2023 Fracture of fibula, distal, right, closed (Acute ~07/09/23) Depression (Acute 05/31/15) Spinal stenosis, unspecified region other than cervical (Chronic 10/26/11) Smoker unmotivated to quit (Acute 05/31/15) Pure hypercholesterolemia (Acute 02/27/17) Iron deficiency anemia due to chronic blood loss (Chronic 03/16/14) due to NSAID, ASA, ? lesion Insomnia (Acute 02/27/17) Essential hypertension (Acute 01/26/13) Diabetes mellitus (Chronic 01/26/13) Radicular pain of right lower extremity (Acute) Chronic low back pain with right-sided sciatica (Acute) Medical History Acute anemia Chronic GI bleeding (07/18/15) Coagulopathy Continuous opioid dependence (10/21/13) Hypokalemia Hypoprothrombinemia Lactic acidosis Metabolic acidosis, increased anion gap Surgical History Abdominal hysterectomy Cholecystectomy Family History Father Myocardial infarction Grandfather Essential hypertension Social History Smoking/Tobacco Use Status: Current every day Tobacco Type: cigarettes Quit status: not considering quitting Smoking risk assessment performed?: Yes Alcohol Intake: former Details: alcholic quit 1978 Drug use: Never Substance use type: does not use Adopted: No Caregiver/Support person: Yes Foster care: No Household members: other Details: self and son Housing: apartment Number of Children: 1 number of grandchildren: 0 Communication Needs: None 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, 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, 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 Pets and animals: Yes Pets and animals: cat(s) What is your relationship status?: How often do you talk on the phone with friends or family?: three or more times per week Panel score (0-1 are the most socially isolated patients): 1 What type of physical activity do you participate in: none Drive intox or ride w/intox local company hazmat driver: No Water heater temp set <120 deg: Yes Working smoke detector in home: Yes Fire extinguisher in home: Yes Carbon monox detector in home: Yes Do you feel safe at home: Yes Do you feel safe in your relationship?: Yes Time Spent with Patient Time Spent with Patient: 45-69 minutes Time was spent: preparing to see the patient(eg.review tests), ordering medications,tests, procedures, referring, communicating with other health career representative, indepentently interpreting results, counseling the patient and care coordination
--- NOTE | 2025-09-01 11:23 | NUR.NOTE ---
Nursing Note: Report called to the Joaquina Waggoner LPN took the report at 1124.
[2025-09-01] MEDS: Varenicline 1 MG TAB PO (12:05)
--- NOTE | 2025-09-01 16:13 | PDOC.CMDIS ---
Date of service: 09/01/25 Time of Service: 16:13 LACE Index Scoring Tool Questions: Length of Stay (in days): 1 Was the patient admitted via the E.D.?: Yes Comorbidities: Previous M.I., Diabetes w/o Complication and Chronic Pulmonary Disease E.D. Visits: 1 Answers: Total Score: 10 Risk of Readmission: High Risk Care Management Discharge Plan Reason for Hospitalization: Weakness Discharge Plan: Stephanie discharged to the [facility] today, where she will stay for respite care while her son is caring for his health. She transported via private vehicle by her daughter, Olivia, who also brought her clothes to wear while at the facility. She will follow up with her PCP and discharge plan of care. She was happy to be going to the [facility], and although she is worried about her son, she is happy that he is taking care of his health. Patient/Family Education Needs: Review discharge instructions and limitations, discussion of self care needs including ask me three. Services Needed at Discharge: Care Home Facility ([facility]) SDOH Health Related Social Needs: Health related social needs details The patient lives with her son who has no transportation
== END 2025-09-01 12:53 | disposition skilled nursing facility (03) ==
LOC: ER 08-31 16:07 → MS 08-31 17:17
PROVIDERS: General Practice; Admitting Provider Family Medicine; Emergency Provider Emergency Medicine; Visit Provider Family Medicine
DX: R26.2 Difficulty in walking, not elsewhere classified (principal); Z73.89 Other problems related to life management difficulty; I73.9 Peripheral vascular disease, unspecified; R05.3 Chronic cough; D64.9 Anemia, unspecified; J43.9 Emphysema, unspecified; I25.10 Atherosclerotic heart disease of native coronary artery without angina pectoris; I10 Essential (primary) hypertension; E78.5 Hyperlipidemia, unspecified; G47.00 Insomnia, unspecified; F32.9 Major depressive disorder, single episode, unspecified; M48.00 Spinal stenosis, site unspecified; E11.40 Type 2 diabetes mellitus with diabetic neuropathy, unspecified; Z86.73 Personal history of transient ischemic attack (TIA), and cerebral infarction without residual deficits; Z99.3 Dependence on wheelchair; Z79.899 Other long term (current) drug therapy; Z59.82 Transportation insecurity; F17.210 Nicotine dependence, cigarettes, uncomplicated
CPT/HCPCS: 00123; 80053; 93005; 94640; 97110; 97162; 97530; 71045; 81003; 81015; 83735; 83880; 84484; 85025; 93010; 94664; 99222; 99239

== ENCOUNTER 2025-09-06 13:14 | Emergency (ER) | payer MEDICARE, MEDICAID, SELFPAY ==
[2025-09-06] VITALS (21 sets, daily range): BP systolic 121–159; BP diastolic 46–69; PULSE 86–98; RESP 13–22; TEMP 36.9; O2SAT 87–93
--- NOTE | 2025-09-06 13:15 | RT.EKG_ITS ---
APPROVED REPORT Exam: Resting ECG Reason for Exam: SOB Patient Location: E HR:90 bpm ECG Measurements Heart Rate 90 AXIS MT 216 P 67 QRSd 87 QRS 24 QT 357 T 56 QTc 437 Conclusion Sinus rhythm...normal P axis, V-rate 60- 99 Atrial premature complex...SV complex w/ short R-R interval Borderline prolonged MT interval...MT >212, V-rate 50- 90
--- NOTE | 2025-09-06 14:04 | DI.CT_ITS ---
Exam(s) CT CHEST/ABD/PEL W CT THORACIC LUMBAR SPINE REC EXAM: CT CHEST/ABD/PEL W CLINICAL HISTORY: trauma, lower abd pain, shortness of breath. TECHNIQUE: Imaging Protocol: Axial computed tomography images with coronal and sagittal reformatted images were created and reviewed. Computer aided detection (CAD) was utilized. Axial, coronal and sagittal images of the thoracic and lumbar spine were reconstructed from the chest abdomen pelvic CT in bone and soft tissue algorithm. CONTRAST MATERIAL: Intravenous: Omnipaque 350 Contrast volume:75 ml Oral: / no COMPARISON: CT CT THORAX ABD/PEL CTA from 11/02/[address] ABD AORTA CTA W RUNOFF from 02/23/2024 CR XR FOOT RT COMPLETE from 03/10/[address] CHEST/ABD/PEL W from 02/26/[address] THORACIC LUMBAR SPINE REC from 09/06/2025 CR XR FOOT RT COMPLETE from 09/06/2025 FINDINGS: CHEST: Pulmonary parenchyma: Slowly growing area lobulated increased density in the superior segment of the right lower lobe body in the pleura. The findings may represent mass versus rounded atelectasis. It measures 2.6 x 2.7 cm by 3.9. This is compares with 2.3 x 2.5 x 3.5 cm on the prior exam. Stable area of anterior pleural thickening adjacent to rib in the left upper lobe. Underlying mild to moderate emphysematous changes. Mildly increased interstitial changes. Tracheobronchial tree: No bronchiectasis. No mucous plugging.No bronchial wall thickening. Pleura: No effusion or pneumothorax. Mediastinum: No adenopathy. The esophagus is unremarkable. Multinodular thyroid again noted. Pulmonary arteries: No visible emboli. Cardiovascular: Heart size is normal. Coronary artery calcifications are present. No pericardial effusion. Severe atherosclerotic changes of the aortic arch through descending aorta. Bones: Unremarkable for age. No lytic or blastic lesions. No compression fractures. Soft tissues: Unremarkable. ABDOMEN and PELVIS: Liver: Normal density. No suspicious mass. Gallbladder and biliary tract: Cholecystectomy. No biliary dilatation. Pancreas: Somewhat atrophic. No abnormal calcifications or inflammatory process. Spleen: Normal. Kidneys: Normal size, contour and axis. No radiodense stones. No obstructive uropathy. No suspicious masses seen. Adrenal glands: Mild left adrenal thickening, stable. Aorta: Abdominal portion non-dilated. Severe atherosclerotic changes. Lymph nodes: Within normal limits. Soft tissues: Unremarkable. Bladder: Unremarkable. Bowel: No obstruction or bowel wall thickening. The appendix is normal. There is normal quantity of stool. Peritoneal cavity: No ascites. No focal collection. No mesenteric inflammatory response. No free air. Bones: Degenerative changes and scoliosis in the spine. Stable mild L2 compression fracture. No evidence of pelvic fracture. Reproductive organs: Hysterectomy. IMPRESSION: No acute abnormality in the chest, abdomen or pelvis. Previously noted opacity in the superior segment of the right lower lobe distally increased in size from 2023. Stable appearance of pleural based nodule in the anterior left upper lobe. The findings could represent malignancy versus rounded atelectasis. Findings were called to Dr. Soto of the emergency department. RADIATION DOSE DELIVERED: Total DLP DATA REPOSITORY: All CT scans at this facility are submitted to the National Radiology Data Registry (NRDR) Dose Index Registry (DIR) with the [employer] [place] [employer] [employer] ([employer]). RADIATION OPTIMIZATION: All CT scans at this facility use at least one of these dose optimization techniques: automated exposure control; mA and/or kV adjustment per patient size (includes targeted exams where dose is matched to clinical indication); or iterative reconstruction.
--- NOTE | 2025-09-06 14:30 | DI.RAD_ITS ---
Exam(s) XR FOOT RT COMPLETE EXAM: XR FOOT RT COMPLETE CLINICAL HISTORY: pain lateral, tenderness. TECHNIQUE: 2D digital imaging was performed. Three views. COMPARISON: CR XR FOOT RT COMPLETE from 03/10/2024 FINDINGS: BONES: There is a nondisplaced fracture at the head of the 5th metatarsal. No additional fractures are identified. The bones appear osteoporotic. There is an old healed 2nd metatarsal fracture. No bony destructive lesion is seen. JOINTS: No dislocation present. There are intertarsal degenerative changes. SOFT TISSUE: Normal. IMPRESSION: Nondisplaced fracture of the head of the 5th metatarsal. DATA REPOSITORY: RADIATION DOSE DELIVERED:
[2025-09-06 14:33] LABS: Abs Immature Grans 0.08 10^3/uL (0.0-0.06); HCT 26.8 % (36.0-46.0); HGB 7.9 g/dL (11.2-15.7); Immature Grans % 0.9 %; MCH 25.6 pg (27.0-33.0); MCHC 29.5 % (32.0-36.0); MCV 87 fL (80-95); MPV 10.8 fL (8.0-11.0); Platelet Count 181 10^3/uL (130-400); RBC 3.08 10^6/uL (3.93-5.22); RDW 15.9 % (11.7-14.6); RDW-SD 47.7 fL; WBC 9.28 10^3/uL (4.4-10.8)
[2025-09-06] MEDS: HYDROmorphone 2 MG/ML SYR 1 MG IVP (14:43)
[2025-09-06 14:45] LABS: Hypochromasia 1+; Polychromasia Present
--- NOTE | 2025-09-06 14:46 | ED.GENADUL_ITS ---
Discharge Plan Disposition Patient Disposition: Home Condition: Stable Discharge Details Clinical Impression: Closed fracture of fifth metatarsal bone of right foot, Low back pain, Fall from chair Primary Care Provider: Crescencio Smith ED Provider: Miko Soto Home Meds and New Rx's Prescriptions: New morphine 15 mg tablet 15 mg PO BID PRN (Reason: severe pain (scale score 7-10)) Qty: 10 0RF Continued (DME) manual wheelchair See Rx Instructions .Route .MEDSUPPLY Qty: 1 0RF Rx Instructions: As directed varenicline tartrate 1 mg tablet 1 mg PO BID Qty: 56 0RF Rx Instructions: To begin after the starter pack is complete trazodone 50 mg tablet 50 mg PO QHS PRN (Reason: sleep) Qty: 90 1RF aspirin 81 mg tablet,chewable 81 mg PO DAILY fluoxetine 20 mg capsule 20 mg PO DAILY Qty: 30 0RF atorvastatin 40 mg tablet 40 mg PO DAILY Qty: 90 3RF Patient Comments: TAKE ONE TABLET BY MOUTH EVERY DAY losartan 50 mg tablet 50 mg PO DAILY Qty: 90 3RF ferrous sulfate [iron] 325 mg (65 mg iron) tablet 325 mg PO DAILY Qty: 60 3RF thiamine HCl (vitamin B1) 100 mg tablet 100 mg PO DAILY Qty: 60 3RF Rx Instructions: x 90 days acetaminophen [Tylenol Extra Strength] 500 mg tablet 500 mg PO Q6H PRN (Reason: pain) Qty: 60 3RF albuterol sulfate [Ventolin HFA] 90 mcg/actuation HFA aerosol inhaler 2 puff inhalation Q6H PRN (Reason: shortness of breath or wheezing) Qty: 8.5 6RF Incruse Ellipta 62.5 mcg/actuation blister with device 1 inh inhalation DAILY Qty: 30 6RF ipratropium-albuterol 0.5 mg-3 mg(2.5 mg base)/3 mL solution for nebulization 3 ml INHALATION DAILY lidocaine 4 % adhesive patch,medicated 1 patch topical DAILY Discontinued melatonin 3 mg tablet 6 mg PO HS PRN (Reason: sleep) Qty: 90 3RF Rx Instructions: Take x 90 days Discharge Instructions Instructions: Low Back Pain ED, Foot Fracture ED Additional Instructions: CT imaging of your chest abdomen pelvis, lumbar and thoracic spine revealed a lung mass that is increasing in size as well as chronic spine fractures. No acute injuries were identified. 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 X-ray imaging of the right foot revealed a fracture of the distal fifth metatarsal. This is being treated with a postop shoe. Remain nonweightbearing on this foot until cleared by orthopedics. Please follow-up with orthopedics. Please follow-up with your primary care physician. Take Tylenol as prescribed for pain. Use morphine IR only for severe pain refractory to Tylenol. You may wish to use an [id number] stool softener while on morphine to prevent constipation. Return to the emergency department immediately for any worsening or new concerning symptoms. Stand Alone Forms: Portal Information Referrals: [facility] [Provider Group] Crescencio Smith APRN [Primary Care Provider, Family Practice] [facility] General Mode of arrival: EMS . Date/Time Provider Initiated Documentation: 09/06/25 13:49 . Limitations to Documentation: no limitations . Information obtained by: patient . 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 The patient reports experiencing lower back pain, rating it as 9 on a scale of 10. The pain began after she fell from a chair to the floor while attempting to move to her wheelchair, which was not locked. She landed on her back and did not hit her head, recalling all events with no loss of consciousness. She has a history of disc damage in the same area and is uncertain if any fractures occurred during the recent fall. She reports no numbness or tingling in her legs, but notes weakness in her right hand due to a past stroke. She also reports no new injuries from the fall. On review of systems she does note lower abdominal discomfort since the fall as well as shortness of breath. The patient also reports lower abdominal pain since the fall. Additionally, the patient reports pain on the side of her right foot, which she attributes to a previous incident where she attempted to stand up from her wheelchair to go to the bathroom, resulting in a cracking sound in her foot. This incident occurred on 09/03/2025. She uses a wheelchair for mobility due to her inability to walk. She has drop foot on the right. She has been managing her pain with Advil and Tylenol, which were administered at the [facility]. Related Data Home Medications ?Medication ?Instructions ?Recorded ?Confirmed manual wheelchair #1 ea 07/09/23 09/06/25 aspirin 81 mg chewable tablet 81 mg PO DAILY 11/13/23 09/06/25 varenicline tartrate 1 mg tablet 1 mg PO BID #56 tabs 04/20/25 09/06/25 trazodone 50 mg tablet 50 mg PO QHS PRN sleep #90 t abs 06/28/25 09/06/25 fluoxetine 20 mg capsule 20 mg PO DAILY #30 caps 07/1409/06/25 atorvastatin 40 mg tablet 40 mg PO DAILY #90 tabs 07/1509/06/25 acetaminophen 500 mg tablet 500 mg PO Q6H PRN pain #60 tabs 08/16/25 09/06/25 (Tylenol Extra Strength) ferrous sulfate 325 mg (65 mg 325 mg PO DAILY #60 tabs 08/16/25 09/06/25 iron) tablet (iron) losartan 50 mg tablet 50 mg PO DAILY #90 tabs 01/0509/06/25 thiamine HCl (vitamin B1) 100 mg 100 mg PO DAILY #60 t abs 08/16/25 09/06/25 tablet albuterol sulfate 90 mcg/actuation 2 puff inhalation Q 6H PRN 08/31/25 09/06/25 aerosol inhaler (Ventolin HFA) shortness of breath or wheezing #8.5 grams umeclidinium 62.5 mcg/actuation 1 inh inhalation DAILY #30 ea 08/31/25 09/06/25 blister powder for inhalation (Incruse Ellipta) ipratropium 0.5 mg-albuterol 3 mg 3 ml inhalation MARYANN Y 09/06/25 09/06/25 (2.5 mg base)/3 mL nebulization soln lidocaine 4 % topical patch 1 patch topical DAILY 08/1509/06/25 morphine 15 mg immediate release 15 mg PO BID PRN jackson re pain 09/06/25 tablet (scale score 7-10) #10 tabs Previous Rx's ?Medication ?Instructions ?Recorded manual wheelchair #1 ea 07/09/23 varenicline tartrate 1 mg tablet 1 mg PO BID #56 tabs 04/20/25 trazodone 50 mg tablet 50 mg PO QHS PRN sleep #90 t abs 06/28/25 fluoxetine 20 mg capsule 20 mg PO DAILY #30 caps 07/14 05/07 atorvastatin 40 mg tablet 40 mg PO DAILY #90 tabs 07/15 11/07 acetaminophen 500 mg tablet 500 mg PO Q6H PRN pain #60 tabs 08/16/25 (Tylenol Extra Strength) ferrous sulfate 325 mg (65 mg 325 mg PO DAILY #60 tabs 08/16/25 iron) tablet (iron) losartan 50 mg tablet 50 mg PO DAILY #90 tabs 01/05 thiamine HCl (vitamin B1) 100 mg 100 mg PO DAILY #60 t abs 08/16/25 tablet albuterol sulfate 90 mcg/actuation 2 puff inhalation Q 6H PRN 08/31/25 aerosol inhaler (Ventolin HFA) shortness of breath or wheezing #8.5 grams umeclidinium 62.5 mcg/actuation 1 inh inhalation DAILY #30 ea 08/31/25 blister powder for inhalation (Incruse Ellipta) morphine 15 mg immediate release 15 mg PO BID PRN jackson re pain 09/06/25 tablet (scale score 7-10) #10 tabs Allergies Allergy/AdvReac Type Severity Reaction Status Date / Time No Known Allergies Allergy Verified 09/06/25 13:08 General Stated Complaint: Fall/Non TraumaCriteria GARY: 3 Exam Const General: cooperative, uncomfortable and no acute distress Orientation: alert and awake [facility] Head: normocephalic and atraumatic Mouth: moist mucous membranes Eyes Conjunctivae: normal conjunctivae Sclera: normal sclerae Resp Auscultation: clear to auscultation bilaterally, no rales, no rhonchi and no wheezes Cardio Rate: regular rate and not tachycardic Rhythm: regular rhythm GI Palpation: soft, not firm, no guarding, no masses, not rigid and tender (lower abd) Back/Spine/Pelvis Cervical Spine: cervical ROM normal, No cervical spinal tenderness and No step off deformity Thoracic/Lumbar Spine: paraspinal tenderness, No thoracic spinal tenderness and lumbar spinal tenderness Skin General skin exam: no rashes or lesions noted Neuro General: patient alert, patient awake, patient oriented x3 and tone normal Extrem General: no edema Right lower extremity: ankle Details: no tenderness and foot Details: tenderness Location: of the lateral foot Location: distally Left lower extremity: ankle Details: no tenderness and foot Details: no tenderness Psych Appearance: grossly normal Mental Status: mental status grossly normal Speech and Movement: speech and movement normal Course Vital Signs Vital signs: Vital Signs Temperature 36.9 C 09/06/25 13:18 Pulse 90 09/06/25 13:18 Respiratory Rate 20 09/06/25 13:18 Blood Pressure 138/46 L 09/06/25 13:18 Pulse Oximetry 89 L 09/06/25 13:18 Temperature 36.9 C 09/06/25 13:18 Temperature Source Oral 09/06/25 13:18 Pulse 90 09/06/25 13:18 Respiratory Rate 20 09/06/25 13:18 Blood Pressure 138/46 L 09/06/25 13:18 Blood Pressure Position Supine 09/06/25 13:18 Pulse Oximetry 89 L 09/06/25 13:18 Oxygen Delivery Method Room Air 09/06/25 13:18 Oxygen Flow Rate 0 09/06/25 13:18 Pain Level 10 09/06/25 13:18 Lab/Test Results Lab/Test Results: Laboratory Tests Range/Units 09/06/25 14:25 WBC (4.4-10.8) 10^3/uL 9.28 RBC (3.93-5.22) 10^6/uL 3.08 L Hgb (11.2-15.7) g/dL 7.9 L Hct (36.0-46.0) % 26.8 L MCV (80-95) fL 87 MCH (27.0-33.0) pg 25.6 L MCHC (32.0-36.0) % 29.5 L RDW (11.7-14.6) % 15.9 H Plt Count (130-400) 10^3/uL 181 MPV (8.0-11.0) fL 10.8 Immature Gran % % 0.9 Neutrophils % % 87.8 Lymphocytes % % 6.1 Monocytes % % 4.1 Eosinophils % % 0.9 Basophils % % 0.2 Nucleated RBC % (0.0-0.3) % 0.0 Absolute Neutrophils (1.2-6.7) 10^3/uL 8.15 H Absolute Lymphocytes (1.2-3.4) 10^3/uL 0.57 L Absolute Monocytes (0.1-0.8) 10^3/uL 0.38 Absolute Eosinophils (0.0-0.7) 10^3/uL 0.08 Absolute Basophils (0.0-0.2) 10^3/uL 0.02 RBC Morphology See Below Polychromasia Present Hypochromasia 1+ Medical Decision Making ASSESSMENT AND PLAN Initial Assessment: 80-year-old female with severe back pain and lower abdominal pain after a mechanical fall. History of damaged lumbar discs. Right foot pain following a fall three days ago. Differential Diagnosis: - Lumbar spine fracture versus contusion versus disc herniation - Abdominal trauma: Reports lower abdominal pain. - Right foot fracture vs sprain ED Course: - Dilaudid IV administered for pain management - CT scan of lumbar and thoracic spine interpreted by radiology: No acute findings, Degenerative changes and scoliosis in the spine. Stable mild L2 compression fracture. No evidence of pelvic fracture. - CT scan of chest, abdomen, pelvis interpreted by radiology: No acute abnormality in the chest, abdomen or pelvis. Previously noted opacity in the superior segment of the right lower lobe distally increased in size from 2023. Stable appearance of pleural based nodule in the anterior left upper lobe. The findings could represent malignancy versus rounded atelectasis. - X-ray of right foot was reviewed and interpreted by radiology: Nondisplaced fracture of the head of the 5th metatarsal. - Patient fitted and postoperative shoe by nursing. Patient instructed to remain nonweightbearing. Patient instructed follow-up with orthopedics. - Labs reviewed and stable anemia noted. - All results were reviewed with the patient. Plan for outpatient follow-up. - Patient requesting opioid pain prescription for her back and foot. Risk- benefit discussed with the patient. Informed consent provided. Morphine IR #10 prescribed. Clinical Impression: - Back pain - Lower abdominal pain - Closed distal right fifth metatarsal fracture - Fall This document was written with the assistance of ALISA Guardado. The patient consented to its use. Lab Data Lab results reviewed: Yes I reviewed the patient's lab results. Labs: Laboratory Tests Range/Units 09/06/25 09/06/25 14:25 14:45 WBC (4.4-10.8) 10^3/uL 9.28 RBC (3.93-5.22) 10^6/uL 3.08 L Hgb (11.2-15.7) g/dL 7.9 L Hct (36.0-46.0) % 26.8 L MCV (80-95) fL 87 MCH (27.0-33.0) pg 25.6 L MCHC (32.0-36.0) % 29.5 L RDW (11.7-14.6) % 15.9 H Plt Count (130-400) 10^3/uL 181 MPV (8.0-11.0) fL 10.8 Immature Gran % % 0.9 Neutrophils % % 87.8 Lymphocytes % % 6.1 Monocytes % % 4.1 Eosinophils % % 0.9 Basophils % % 0.2 Nucleated RBC % (0.0-0.3) % 0.0 Absolute Neutrophils (1.2-6.7) 10^3/uL 8.15 H Absolute Lymphocytes (1.2-3.4) 10^3/uL 0.57 L Absolute Monocytes (0.1-0.8) 10^3/uL 0.38 Absolute Eosinophils (0.0-0.7) 10^3/uL 0.08 Absolute Basophils (0.0-0.2) 10^3/uL 0.02 RBC Morphology See Below Polychromasia Present Hypochromasia 1+ Sodium (136-145) mmol/L 136 Potassium (3.5-5.1) mmol/L 4.2 Chloride (98-107) mmol/L 103 Carbon Dioxide (20.0-31.0) mmol/L 24.5 Anion Gap (3-11) mmol/L 8.5 BUN (9-23) mg/dL 14 Creatinine (0.55-1.02) mg/dL 0.62 Est GFR (CKD-EPI 2020) (mL/min/1.73m2) 92.34 Glucose (74-106) mg/dL 270 H Calcium (8.3-10.6) mg/dL 9.0 Total Bilirubin (0.2-1.2) mg/dL 0.50 AST (<34) U/L 20 ALT (10-49) U/L 15 Alkaline Phosphatase (46-116) U/L 140 H Total Protein (5.7-8.2) g/dL 6.7 Albumin (3.4-5.0) g/dL 4.0 ABO/Rh O Positive Antibody Screen NEGATIVE Quality:[facility] Health Related Social Needs: Health related social needs details The patient lives with her son who has no transportation [facility] All Active Problems Fall from chair (Acute) Low back pain (Acute) Closed fracture of fifth metatarsal bone of right foot (Acute) Unable to care for self (Acute) Cough (Acute) Advanced care planning/counseling discussion (Acute) Peripheral vascular disease (Chronic) Thyroid nodule (Acute) Pulmonary nodule 1 cm or greater in diameter (Acute) MDS/MPN (myelodysplastic/myeloproliferative neoplasms) (Acute ~05/2025) 05/19/25 Hem/Onc Pulmonary nodules (Acute) Muscular deconditioning (Acute) Osteoarthritis of knees, bilateral (Acute) Enlarged thyroid (Acute) Chronic toe pain, bilateral (Acute ~01/2025) 01/29/25 [facility] Acquired bilateral foot drop (Acute ~01/2025) 01/29/25 [facility] Right hand pain (Acute) Right hand weakness (Acute) Nail dystrophy (Acute) Onychomycosis (Acute) Smoker (Acute) Diabetes mellitus with neuropathy (Acute) Stenosis of artery of both lower extremities (Acute) Atherosclerosis of artery of both lower extremities (Acute) Cellulitis (Acute) Ulcer of right foot with fat layer exposed (Acute) Ischemic ulcer of right foot (Acute) Osteoarthritis of joints of toes of both feet (Acute) Atherosclerosis (Acute) Patient has severe atherosclerosis noted throughout most of her blood vessels noted on recent MRI angio/MRI of the heart/MRI of the head/CT chest abdomen pelvis. 10/2023 Vertebral artery stenosis, asymptomatic (Acute) Left Soft tissue mass (Acute) 1.8 cm dorsal surface anterior aspect left second rib Diabetic ulcer of right great toe (Acute) 05/19/24 [facility] Vascular Surgery Visit Compression fracture of L2 lumbar vertebra (Acute) Aortic mural thrombus (Acute) Coronary artery calcification seen on CAT scan (Acute) Mass of chest wall, right (Acute) Chronic ulcer of right great toe (Acute) Stroke (Chronic) Salicylate poisoning (Acute) Tobacco abuse (Chronic) Hypoalbuminemia (Acute) Right lower lobe pneumonia (Acute) Tracheal stenosis (Acute) Multinodular goiter (Acute) Atherosclerosis of aorta (Chronic) Rhabdomyolysis (Acute) Pulmonary edema (Acute) Encephalopathy acute (Acute) Iron deficiency (Chronic) Pneumonia (Acute) Acute on chronic anemia (Acute) NSTEMI (non-ST elevated myocardial infarction) (Acute) 10/2023 Fracture of fibula, distal, right, closed (Acute ~07/09/23) Spinal stenosis, unspecified region other than cervical (Chronic 10/26/11) Smoker unmotivated to quit (Acute 05/31/15) Pure hypercholesterolemia (Acute 02/27/17) Iron deficiency anemia due to chronic blood loss (Chronic 03/16/14) due to NSAID, ASA, ? lesion Essential hypertension (Acute 01/26/13) Radicular pain of right lower extremity (Acute) Chronic low back pain with right-sided sciatica (Acute) Medical History Hyperlipidemia Hypertension Coronary artery disease Chronic cough Chronic anemia Unable to ambulate COPD (chronic obstructive pulmonary disease) Depression (05/31/15) Insomnia (02/27/17) Diabetes mellitus (01/26/13) Acute anemia Metabolic acidosis, increased anion gap Lactic acidosis Hypokalemia Coagulopathy Hypoprothrombinemia Continuous opioid dependence (10/21/13) Chronic GI bleeding (07/18/15) Surgical History Abdominal hysterectomy Cholecystectomy Family History Father Myocardial infarction Grandfather Essential hypertension Social History Smoking/Tobacco Use Status: Current every day Tobacco Type: cigarettes Quit status: not considering quitting Smoking risk assessment performed?: Yes Alcohol Intake: former Details: alcholic quit 1977 Drug use: Never Substance use type: does not use Adopted: No Caregiver/Support person: Yes Foster care: No Household members: other Details: self and son Housing: apartment Number of Children: 1 number of grandchildren: 0 Communication Needs: None 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
[2025-09-06 14:53] LABS: ALT 15 U/L (10-49); AST 20 U/L (<34); Albumin 4.0 g/dL (3.4-5.0); Alkaline Phosphatase 140 U/L (46-116); Anion Gap 8.5 mmol/L (3-11); BUN 14 mg/dL (9-23); Bilirubin, Total 0.50 mg/dL (0.2-1.2); CO2 24.5 mmol/L (20.0-31.0); Calcium 9.0 mg/dL (8.3-10.6); Chloride 103 mmol/L (98-107); Glucose 270 mg/dL (74-106); Potassium 4.2 mmol/L (3.5-5.1); Sodium 136 mmol/L (136-145); Total Protein 6.7 g/dL (5.7-8.2)
[2025-09-06] MEDS: Normal Saline - Diluent 50 ML VIAL IJ (15:13)
[2025-09-06] MEDS: Omnipaque 350 MG/ML 100 ML BTL IJ (15:13)
[2025-09-06] MEDS: Normal Saline Flush 10 ML SYR IVP (15:14)
== END 2025-09-06 16:06 | disposition home or self-care (01) ==
PROVIDERS: Emergency Provider Student in an Organized Health Care Education/Training Program
DX: S92.351A Displaced fracture of fifth metatarsal bone, right foot, initial encounter for closed fracture (principal); M54.50 Low back pain, unspecified; W05.0XXA Fall from non-moving wheelchair, initial encounter
CPT/HCPCS: 99284; 99285; 96374; 74177; 80053; 86850; 86900; 86901; 93005; 71260; 73630; 85025; 93010; J1171; J3490